=== PATIENT | female | born 1970 | race Caucasian/White ===

== ENCOUNTER 2016-08-06 12:25 | Observation (INO) ==
[2016-08-06] MEDS ORDERED: Aspirin 81 MG TAB.CHEW PO ONE (12:33)
--- NOTE | 2016-08-06 12:51 | Emergency Department Note ---
Disposition Clinical Impression: Chest pain Qualifiers: Chest pain type: unspecified Qualified Code(s): R07.9 - Chest pain, unspecified Disposition: Admitted As Inpatient Condition: Good Referrals: NO,PCP [Non-Partnered Physician] - Forms: ED Satisfaction Letter Time of Disposition: 14:13 Chest Pain HPI - General Chief Complaint: ED Chest Pain Stated Complaint: C/P Time Seen by Provider: 08/06/16 12:33 Source: patient Mode of arrival: ambulatory Limitations: language barrier Vital Signs Reviewed: Yes Nursing Notes Reviewed: Yes - History of Present Illness HPI Narrative: 46-year-old who comes in complaining of chest pain she describes as heaviness in her chest. Patient has multiple risk factors including hypertension, hyperlipidemia, diabetes, cigarette smoking, family history. Pt complaint: chest pain Onset (ago): hour(s) Duration: constant Onset: during rest Pain Location: substernal, left chest Severity scale (1-10): 7 Quality: tightness, aching, heaviness Pain Radiation: none Improves with: nothing Worsens with: nothing Associated symptoms: Denies: palpitations, fever, cough - Related Data Home Medications Medication Instructions Recorded Confirmed Amitriptyline HCl 75 mg PO DAILY 05/11/15 10/13/15 Escitalopram [Lexapro] 20 mg PO DAILY 05/11/15 10/13/15 Eszopiclone [Lunesta] 2 mg PO HS 05/11/15 10/13/15 Gabapentin [Neurontin] 800 mg PO QID 05/11/15 10/13/15 Losartan/HCTZ [Hyzaar 50-12.5 2 each PO DAILY 05/11/15 10/13/15 Tablet] Lovastatin [Mevacor] 20 mg PO HS 05/11/15 10/13/15 Morphine Sulfate ER (24 HR) 15 mg PO BID 05/11/15 10/13/15 [Morphine Sulfate ER Caps] OxyCODONE/APAP 5/325 [Percocet 1 tab PO BID 05/11/15 10/13/15 5/325 MG] Tizanidine HCl [Zanaflex] 18 mg PO HS 05/11/15 10/13/15 amLODIPine [Norvasc] 10 mg PO DAILY 05/11/15 10/13/15 Previous Rx's Medication Instructions Recorded Aspirin 81 mg PO DAILY #30 tab.chew 05/13/15 Nicotine Patch [Nicoderm] 21 mg TD DAILY #42 patch.td24 05/13/15 Nitroglycerin 0.4 mg SL Q5MIN PRN #90 tab.subl 05/13/15 Promethazine [Phenergan] 25 mg PO Q6HR #10 tablet 09/13/15 Diclofenac Sodium [Voltaren] 50 mg PO Q8HR PRN #30 tablet. 10/30/15 predniSONE [Prednisone] 40 mg PO DAILY #10 tablet 10/30/15 Cyclobenzaprine [Flexeril] 10 mg PO BID #6 tablet 01/27/16 Naproxen [EC-Naprosyn] 500 mg PO BID #10 tablet. 01/27/16 Allergies Allergy/AdvReac Type Severity Reaction Status Date / Time Iodinated Contrast- Oral and Allergy Hives Verified 01/27/16 09:46 IV Dye All systems ED: reviewed and negative except as stated. Constitutional: Denies: fever, chills, weakness, weight change Eyes: Denies: eye pain, eye discharge, vision change ENT ED: Denies: ear pain, throat pain, dental pain, hearing loss, epistaxis, congestion, dysphagia Cardiovascular: Reports: chest pain. Denies: palpitations, dyspnea on exertion , edema, syncope Respiratory: Denies: cough, dyspnea, wheezes, hemoptysis, stridor Gastrointestinal: Denies: abdominal pain, nausea, vomiting, diarrhea, constipation, hematemesis, melena, hematochezia Genitourinary: Denies: dysuria, frequency, hematuria, discharge Musculoskeletal: Denies: back pain, neck pain, arthralgia, myalgia Integumentary: Denies: rash, abrasion, lesions Neurological: Denies: headache, weakness, numbness, paresthesias, confusion, abnormal gait, vertigo Psychiatric: Denies: anxiety, depression, suicidal thoughts, homicidal thoughts , auditory hallucinations, visual hallucinations Endocrine: Denies: fatigue Hematological/Lymphatic: Denies: easy bleeding, easy bruising Allergic/Immunologic: Denies: facial swelling, urticaria Chest Pain PMH - Past Medical History Medical history: Reports: arthritis, hyperlipidemia, hypertension Surgical history: Reports: cholecystectomy, hysterectomy, knee replacement ( Right December 2014) Psychiatric history: Reports: anxiety, depression [employer] history: Reports: no [employer] history - Social History Smoking Status: Former smoker Alcohol use: Reports: none Drug use: Reports: none Physical Exam - General Limitations: language barrier General appearance: alert - Head Head exam: atraumatic, normocephalic, normal inspection - Eye Eye exam: Present: normal appearance, PERRL, EOMI - ENT ENT exam: normal exam, normal oropharynx, mucous membranes moist - Neck Neck exam: Present: normal inspection, full ROM, trachea midline - Chest Chest inspection: Present: normal inspection, symmetric chest wall rise - Respiratory Respiratory exam: Present: normal lung sounds bilaterally - Cardiovascular Cardiovascular exam: Present: regular rate, normal rhythm, normal heart sounds - Abdominal Exam Abdominal exam: Present: soft, Non-Tender. Absent: tenderness, distention, guarding, rebound, rigidity - Extremities Exam Extremities exam: Present: normal inspection, full ROM. Absent: tenderness, pedal edema - Expanded Lower Extremity Exam Neurovascular/Tendon exam: Absent: motor deficit, sensory deficit, tendon deficit Gait: observed and normal - Back Exam Back exam: Present: normal inspection, full ROM. Absent: tenderness - Neurological Exam Neurological exam: Present: alert, oriented X3 - Psychiatric Psychiatric exam: Present: normal affect, normal mood - Skin Skin exam: Present: warm, dry, intact, normal color Course - Reevaluation(s) Reevaluation #1: 46-year-old female with multiple risk factors who comes in with chest pain that is consistent with cardiac origin chest pain. Workup is negative patient will be admitted. Time: 14:14 - Consultations Consultation #1: Discussed with Dr. Ridley, admit. Time: 14:14 Vital Signs Temperature 97.7 F 08/06/16 12:27 Pulse Rate 96 08/06/16 12:27 Respiratory Rate 16 08/06/16 12:27 Blood Pressure 133/83 08/06/16 12:27 O2 Sat by Pulse Oximetry 100 08/06/16 12:27 Temperature 97.7 F 08/06/16 12:27 Pulse Rate 103 08/06/16 13:01 Respiratory Rate 17 08/06/16 13:01 Blood Pressure 140/85 08/06/16 13:01 O2 Sat by Pulse Oximetry 100 08/06/16 13:01 Oxygen Delivery Oxygen Delivery Room Air Chest Pain - Lab Data Lab results reviewed: Yes I reviewed the patient's lab results. Result diagrams: 08/06/16 12:51 08/06/16 12:51 Lab Results 08/06/16 08/06/16 08/06/16 Range/Units 12:51 12:51 12:51 WBC 9.0 (4.3-11.1) K/mcL RBC 5.04 H (3.82-4.97) M/mcL Hgb 15.5 H (11.5-15.4) g/dL Hct 44.7 (35.3-44.9) % MCV 88.7 (83.0-100.0) fL MCH 30.8 (28.0-33.3) pg MCHC 34.7 (31.6-35.5) g/dL RDW 12.7 (11.5-14.5) % Plt Count 283 (140-400) K/mcL MPV 10.9 (9.4-12.4) fL Immature Gran % 0.2 (0-4) % Seg Neutrophils % 68.1 % Lymphocytes % 27.3 % Monocytes % 3.2 % Eosinophils % 0.8 % Basophils % 0.4 % Neutrophils # 6.1 (1.6-8.9) K/mcL Lymphocytes # 2.5 (0.6-4.6) K/mcL Monocytes # 0.3 (0.0-1.3) K/mcL Eosinophils # 0.1 (0.0-0.6) K/mcL Basophils # 0.0 (0.0-0.2) K/mcL Platelet Estimate Normal (Normal) Large Platelets Present A (Not Present) PT 12.8 H (9.4-12.1) Seconds INR 1.2 APTT 34.7 (26.0-36.0) Seconds Sodium 138 (136-145) mEq/L Potassium 3.7 (3.5-4.5) mEq/L Chloride 106 (98-109) mEq/L Carbon Dioxide 22 (19-29) mEq/L BUN 15 (7-20) mg/dL Creatinine 0.86 (0.57-1.11) mg/dL Est GFR ( Amer) > 60 (> 60) Est GFR (Non-Af Amer) > 60 (> 60) BUN/Creatinine Ratio 17 (6-26) Glucose 137 H (70-99) mg/dL Calculated Osmolality 289 (280-300) Calcium 9.8 (8.6-10.8) mg/dL Troponin I (0-0.03) ng/mL 08/06/16 Range/Units 12:51 WBC (4.3-11.1) K/mcL RBC (3.82-4.97) M/mcL Hgb (11.5-15.4) g/dL Hct (35.3-44.9) % MCV (83.0-100.0) fL MCH (28.0-33.3) pg MCHC (31.6-35.5) g/dL RDW (11.5-14.5) % Plt Count (140-400) K/mcL MPV (9.4-12.4) fL Immature Gran % (0-4) % Seg Neutrophils % % Lymphocytes % % Monocytes % % Eosinophils % % Basophils % % Neutrophils # (1.6-8.9) K/mcL Lymphocytes # (0.6-4.6) K/mcL Monocytes # (0.0-1.3) K/mcL Eosinophils # (0.0-0.6) K/mcL Basophils # (0.0-0.2) K/mcL Platelet Estimate (Normal) Large Platelets (Not Present) PT (9.4-12.1) Seconds INR APTT (26.0-36.0) Seconds Sodium (136-145) mEq/L Potassium (3.5-4.5) mEq/L Chloride (98-109) mEq/L Carbon Dioxide (19-29) mEq/L BUN (7-20) mg/dL Creatinine (0.57-1.11) mg/dL Est GFR ( Amer) (> 60) Est GFR (Non-Af Amer) (> 60) BUN/Creatinine Ratio (6-26) Glucose (70-99) mg/dL Calculated Osmolality (280-300) Calcium (8.6-10.8) mg/dL Troponin I 0.00 (0-0.03) ng/mL - Radiology Data Radiology results reviewed: Yes I reviewed the patient's radiology results. Chest X-Ray 08/06/16 12:33 IMPRESSION: No active cardiopulmonary disease D/ / López Downing MD / López Downing MD Interpreting Provider: López Downing MD Heart Score - Score History: Moderately Suspicious EKG: Non Specific repolarisation Disturbance Age: 45-65 Risk Factors: Equal/Greater than 3 risk factor or history of atherosclerotic disease Troponin: Less than normal limit HEART Score Total: 5
[2016-08-06 12:59] LABS: Basophils % 0.4 %; Eosinophils # 0.1 K/mcL (0.0-0.6); Eosinophils % 0.8 %; Hematocrit 44.7 % (35.3-44.9); Hemoglobin 15.5 g/dL (11.5-15.4); Immature Granulocytes % 0.2 % (0-4); Lymphocytes # 2.5 K/mcL (0.6-4.6); Lymphocytes % 27.3 %; Mean Corpuscular HGB Conc 34.7 g/dL (31.6-35.5); Mean Corpuscular Hemoglobin 30.8 pg (28.0-33.3); Mean Corpuscular Volume 88.7 fL (83.0-100.0); Mean Platelet Volume 10.9 fL (9.4-12.4); Monocytes # 0.3 K/mcL (0.0-1.3); Monocytes % 3.2 %; Neutrophils # 6.1 K/mcL (1.6-8.9); Platelet Count 283 K/mcL (140-400); Red Blood Count 5.04 M/mcL (3.82-4.97); Red Cell Distribution Width 12.7 % (11.5-14.5); Segmented Neutrophils % 68.1 %
[2016-08-06 13:02] LABS: INR 1.2; Prothrombin Time 12.8 Seconds (9.4-12.1)
[2016-08-06 13:05] LABS: Activated Partial Thrombo Time 34.7 Seconds (26.0-36.0)
[2016-08-06 13:09] LABS: BUN/Creatinine Ratio 17 (6-26); Blood Urea Nitrogen 15 mg/dL (7-20); Calcium 9.8 mg/dL (8.6-10.8); Carbon Dioxide 22 mEq/L (19-29); Chloride 106 mEq/L (98-109); Glucose 137 mg/dL (70-99); Osmolality,Calculated 289 (280-300); Potassium 3.7 mEq/L (3.5-4.5); Sodium 138 mEq/L (136-145); eGFR For African Americans > 60 (> 60); eGFR For Non-African Americans > 60 (> 60)
[2016-08-06 13:29] LABS: Large Platelets Present (Not Present); Platelet Estimate Normal (Normal)
--- NOTE | 2016-08-06 16:19 | Internal Med History&Physical ---
Date of Encounter: 08/06/16 Time of Encounter: 16:17 Assessment and Plan (1) Chest pain Current visit: Yes Status: Acute Substernal chest pain with radiation to the left shoulder in the setting of a patient with multiple risk factors for Coronary artery disease. Admit for observation. Telemetry monitoring. Follow trend of cardiac biomarkers. Lipid panel. Aspirin. Nothing by mouth after midnight, stress test in a.m. Resume home medications. D/W patient. Qualifiers: Chest pain type: unspecified Qualified Code(s): R07.9 - Chest pain, unspecified (2) DVT prophylaxis Current visit: No Status: Acute Hepatin subcutaneously. (3) Tobacco abuse Current visit: No Status: Chronic Patient was counseled in regards to smoking cessation. (4) Anxiety and depression Current visit: Yes Status: Acute Resume home meds. Internal Medicine - H&P: HPI Chief complaint: chest pain Admitted From: Emergency Dept Plans for Post Hospital Care: Home History of present illness: Ms. Solis is a 46 year old female with past medical history of chronic active smoker, anxiety, depression, hypertension, hyperlipidemia. She presented to our emergency department complaining of substernal chest pain, pressure-like, with radiation to the left shoulder which is started today at around 7 AM and was associated with shortness of breath. Patient denies fever, cough, syncope, rash, headache, dysuria, diarrhea, constipation. She presented to the emergency department and her initial troponin was negative, her EKG was essentially unremarkable. Chest x-ray was not showing any signs of acute abnormalities. In light of her extensive risk factors and her complaint of chest pain and she was admitted for further management and workup. Of note, she underwent extensive cardiac workup in April of last year, including stress test, echocardiogram and left heart catheterizations. Past Med Surg Social Fam HX - Past Medical History Medical history: arthritis, hyperlipidemia, hypertension Psychiatric history: anxiety, depression - Past Surgical History Surgical History: cholecystectomy, hysterectomy, knee replacement (Right December 2014) - Social History Smoking Status: Current every day smoker Smokeless Tobacco Status: No Alcohol use: none Drug use: none - Family History Mother Adopted: No Living Status: Still Living Hx Family Cardiac Disorders: Yes (Hypertension) Hx Family Respiratory Disorders: No Hx Family Cancer: No Hx Family GI Disorders: No Hx Family Endocrine Disorder: No Hx Family Neuromuscular Disorders: No Hx Family Neurologic Disorders: Yes (Seizure disorder) Hx Family HEENT Disorders: No Hx Family Autoimmune Disorders: No Internal Medicine - H&P: Meds Escitalopram [Lexapro] 20 mg PO DAILY 05/11/15 [History] Eszopiclone [Lunesta] 2 mg PO HS 05/11/15 [History] Gabapentin [Neurontin] 800 mg PO QID 05/11/15 [History] Losartan/HCTZ [Hyzaar 50-12.5 Tablet] 1 each PO BID 05/11/15 [History] Tizanidine HCl [Zanaflex] 6 mg PO HS 05/11/15 [History] amLODIPine [Norvasc] 10 mg PO DAILY 05/11/15 [History] Buspirone HCl [Buspar] 7.5 mg PO BID 08/06/16 [History] HYDROcodone/Acet 7.5/325 mg [[place] 7.5-325 mg] 1 tab PO Q6H PRN 08/06/16 [ History] Topiramate [Topamax] 50 mg PO BID 08/06/16 [History] Allergies Iodinated Contrast- Oral and IV Dye Allergy (Verified 01/27/16 09:46) Hives All Systems PM: A 10-system review of systems was performed and is negative for pertinent findings except as documented above in the HPI. - Constitutional Constitutional: as per HPI, no chills, no fever(s), no night sweats - EENT Eyes: as per HPI, no change in vision, no discharge, no pain, no photophobia Ears: as per HPI, no ear discharge, no ear pain, no tinnitus Nose, mouth and throat: as per HPI, no dysphagia, no nasal discharge, no neck pain, no sore throat - Breasts Breasts: as per HPI - Cardiovascular Cardiovascular ROS IM: chest pain, dyspnea, dyspnea on exertion, no diaphoresis , no lightheadedness, no palpitations, no syncope - Respiratory Respiratory: as per HPI, dyspnea, dyspnea on exertion, no cough, no wheezing, no excessive phlegm production - Gastrointestinal Gastrointestinal: as per HPI, no abdominal pain, no diarrhea, no hematemesis, no hematochezia, no melena, no nausea, no vomiting - Genitourinary Genitourinary: as per HPI, no change in urinary stream, no dysuria, no flank pain, no hematuria - Musculoskeletal Musculoskeletal ROS IM: as per HPI, no numbness, no tingling - Integumentary Integumentary IM: as per HPI, no rash, no unusual bruising - Neurological Neurological ROS: as per HPI, no confusion, no convulsions, no focal weakness, no numbness, no tingling, no tremor(s) - Psychiatric Psychiatric: as per HPI - Endocrine Endocrine IM: as per HPI - Hematologic/Lymphatic Hematologic/Lymphatic: as per HPI, no easy bruising - Allergic/Immunologic Allergic/Immunologic: as per HPI - Constitutional Vitals: Temp Pulse Resp BP Pulse Ox 98.6 F 70 16 124/88 96 08/06/16 15:24 08/06/16 15:24 08/06/16 15:24 08/06/16 15:24 08/06/16 15:24 General appearance: Present: cooperative, A&O X 3, pleasant, no acute distress - Head Head exam: Present: atraumatic, normocephalic - Eye Eye exam: Present: PERRL, conjuntiva pink, sclera anicteric Pupils: Present: PERRL - Neck Neck exam general surgery: Present: supple, trachea midline. Absent: lymphadenopathy - Respiratory Respiratory exam: Present: CTAB. Absent: accessory muscle use, rales, rhonchi, wheezes - Cardiovascular Cardiovascular exam: Present: RRR, +S1, +S2. Absent: diastolic murmur, gallop, rubs, systolic murmur - GI/Abdominal GI/Abdominal exam: Present: normal bowel sounds, soft, no peritoneal signs. Absent: distended, tenderness - Extremities Exam Extremities exam: Present: warm, radial pulses palpable and symetrical. Absent : calf tenderness, cyanotic, pedal edema - Neurological Exam Neurological exam: Present: CN II-XII intact, oriented X3, no focal deficits. Absent: pronater drift, facial droop, speech deficit - Skin Skin exam: Present: dry, intact Internal Med - H&P Results - Labs CBC & Chem 7: 08/06/16 12:51 08/06/16 12:51
[2016-08-06] MEDS ORDERED: *HR* HYDROcodone/Acet 7.5/325 mg TABLET PO PRN (16:26)
[2016-08-06] MEDS ORDERED: Nitroglycerin 0.4 MG TAB.SUBL SL PRN (16:28)
[2016-08-06] MEDS ORDERED: Ondansetron ODT 4 MG TAB.RAPDIS SL PRN (16:30)
[2016-08-06] MEDS ORDERED: Naloxone 0.4 MG/ML INJ IVP PRN (16:30)
[2016-08-06 17:29] LABS: Amphetamine Screen,Urine Negative ng/mL (Cutoff=1000); Barbiturate Screen,Urine Negative ng/mL (Cutoff=200); Benzodiazepines Screen,Urine Negative ng/mL (Cutoff=200); Cannabinoid Screen,Urine Negative ng/mL (Cutoff = 50); Cocaine Screen,Urine Negative ng/mL (Cutoff= 300); Opiate Screen,Urine Negative ng/mL (Cutoff=300); Phencyclidine Screen,Urine Negative ng/mL (Cutoff=25)
[2016-08-06] MEDS: *HR* Morphine 2 MG/ML SYRINGE IVP PRN ×2 (17:58→21:52)
[2016-08-06] MEDS: Gabapentin 400 MG CAPSULE PO SCH (21:51)
[2016-08-06] MEDS: Topiramate 25 MG TABLET PO SCH (21:51)
[2016-08-06] MEDS: *HR* Heparin 5,000 UNIT/ML VIAL SQ SCH (21:52)
[2016-08-07] MEDS: *HR* Morphine 2 MG/ML SYRINGE IVP PRN ×3 (02:08→12:16)
[2016-08-07 03:06] LABS: Basophils % 0.4 %; Eosinophils # 0.3 K/mcL (0.0-0.6); Eosinophils % 3.5 %; Hemoglobin 14.5 g/dL (11.5-15.4); Immature Granulocytes % 0.2 % (0-4); Immature Platelets 8.2 % (1.1-6.1); Lymphocytes # 4.4 K/mcL (0.6-4.6); Lymphocytes % 53.5 %; Mean Corpuscular HGB Conc 33.7 g/dL (31.6-35.5); Mean Corpuscular Hemoglobin 30.9 pg (28.0-33.3); Mean Corpuscular Volume 91.5 fL (83.0-100.0); Mean Platelet Volume 10.9 fL (9.4-12.4); Monocytes # 0.4 K/mcL (0.0-1.3); Monocytes % 5.2 %; Neutrophils # 3.1 K/mcL (1.6-8.9); Platelet Count 262 K/mcL (140-400); Red Cell Distribution Width 12.8 % (11.5-14.5); Segmented Neutrophils % 37.2 %
[2016-08-07 03:10] LABS: Prothrombin Time 10.5 Seconds (9.4-12.1)
[2016-08-07 03:17] LABS: Hemoglobin A1C 5.7 %; Magnesium 2.2 mg/dL (1.6-2.6)
[2016-08-07 03:23] LABS: Alanine Aminotransferase 14 Units/L (0-55); Albumin 3.7 g/dL (3.5-5.0); Albumin/Globulin Ratio 1.1 (1.1-2.2); Alkaline Phosphatase 88 Units/L (38-126); Aspartate Amino Transferase 13 Units/L (5-34); BUN/Creatinine Ratio 18 (6-26); Bilirubin,Total 0.3 mg/dL (0.2-1.2); Blood Urea Nitrogen 14 mg/dL (7-20); Calcium 9.2 mg/dL (8.6-10.8); Carbon Dioxide 28 mEq/L (19-29); Chloride 105 mEq/L (98-109); Chol/HDL Ratio 7.7 (0-4.9); Cholesterol 238 mg/dL (< 200); Globulin 3.5 g/dL (2.4-3.5); Glucose 107 mg/dL (70-99); HDL Cholesterol 31 mg/dL (40-59); LDL Cholesterol,Calculated 162 mg/dL (0-99); Osmolality,Calculated 293 (280-300); Potassium 3.9 mEq/L (3.5-4.5); Sodium 141 mEq/L (136-145); Total Protein 7.2 g/dL (6.0-8.3); Triglycerides 224 mg/dL (< 150); eGFR For African Americans > 60 (> 60); eGFR For Non-African Americans > 60 (> 60)
[2016-08-07 03:43] LABS: Thyroid Stimulating Hormone 3.408 mcIU/mL (0.350-4.840)
[2016-08-07] MEDS: *HR* Heparin 5,000 UNIT/ML VIAL SQ SCH (06:26)
[2016-08-07] MEDS ORDERED: Regadenoson 0.4 MG/5 ML SYRINGE IVP ONE (08:11)
[2016-08-07] MEDS ORDERED: Losartan/HCTZ 50-12.5 TABLET PO SCH (09:00)
[2016-08-07] MEDS ORDERED: Aspirin 81 MG TAB.CHEW PO SCH (09:00)
[2016-08-07] MEDS ORDERED: amLODIPine 5 MG TABLET PO SCH (09:00)
[2016-08-07 11:43] VITALS: BP 123/83
[2016-08-07] MEDS: Gabapentin 400 MG CAPSULE PO SCH (12:14)
[2016-08-07] MEDS: Topiramate 25 MG TABLET PO SCH (12:15)
--- NOTE | 2016-08-07 13:27 | Nuclear Medicine Stress Report ---
Regadenoson Nuclear Stress Name: Jodie Solis Date of Study: 08/07/2016 Date: 1970 Ht: 69.0 in Medical Record#: [id number] Age: 46 Wt: 235.0 lb Gender: Female Order #: [id number] Location: [facility] Room: [facility] Supervising Provider: Navya Sebastian CNP Reading Physician: Tod Sim MD, [facility] Ordering Physician: Ana Juarez CNP Primary Care Physician: Carmella Blackwood DO Stress Technologist: Yamilet Kebede, BINDERY OPERATOR, CCT, CPFT Calender Let Off Helper: Phu Lee Indications: Chest Pain Impression: No significant ECG changes with regadenoson. Gated LVEF > 70%. Perfusion imaging was negative for ischemia or infarct. History: Hypertension Hypercholesteremia History of Smoking Stress Test Summary: Stress Test Type: Pharmacologic Regadenoson 0.4mg/5ml given IV Baseline Information: Initial Heart Rate: 63 Blood Pressure: 114/82 Stress Information: Test Terminated Due to (primary): As per protocol Maximum Blood Pressure: 118/76 Maximum Heart Rate: 97 Percent Maximum Heart Rate Achieved: 55 Double Product: [id number] Symptoms: Nausea Nuclear Summary: SPECT myocardial perfusion imaging using [id number] Sestamibi given intravenously was performed at rest and following cardiac stress testing. The resting images were obtained following initial dose of 11.7 mCi. Following stress an additional dose of 32.8 mCi was given at peak exercise or 30 seconds post regadenoson infusion. Findings: Stress Note * Resting ECG demonstrated normal sinus rhythm. * No baseline arrhythmias were noted. * Patient had no chest pain during stress. * No arrhythmias were noted during stress. * No significant ECG changes with regadenoson. Hemodynamic responses * Normal hemodynamic responses to pharmacologic stress. Study Quality * Study quality is good. Gated EF > 70% * Gated LVEF > 70%. Left Ventricle * The left ventricle is not dilated. * Normal Segmental Perfusion in rest. * Normal segmental perfusion in stress. TID * No evidence of transient ischemic dilatation. Updated by Tod Sim MD, [facility] on 08/07/2016 1:21:11 PM electronically signed on 08/07/2016 1:22:12 PM with status of Final
--- NOTE | 2016-08-07 13:52 | Discharge Summary ---
Date of Encounter: 08/07/16 Time of Encounter: 13:50 - Discharge Diagnosis (1) Chest pain Priority: Primary Status: Acute Qualifiers: Chest pain type: unspecified Qualified Code(s): R07.9 - Chest pain, unspecified (2) DVT prophylaxis Priority: Secondary Status: Acute (3) Tobacco abuse Priority: Secondary Status: Chronic (4) Anxiety and depression Priority: Secondary Status: Acute - Discharge Medications Home Medications: Escitalopram [Lexapro] 20 mg PO DAILY 05/11/15 [History] Eszopiclone [Lunesta] 2 mg PO HS 05/11/15 [History] Gabapentin [Neurontin] 800 mg PO QID 05/11/15 [History] Losartan/HCTZ [Hyzaar 50-12.5 Tablet] 1 each PO BID 05/11/15 [History] Tizanidine HCl [Zanaflex] 6 mg PO HS 05/11/15 [History] amLODIPine [Norvasc] 10 mg PO DAILY 05/11/15 [History] Buspirone HCl [Buspar] 7.5 mg PO BID 08/06/16 [History] HYDROcodone/Acet 7.5/325 mg [[place] 7.5-325 mg] 1 tab PO Q6H PRN 08/06/16 [ History] Topiramate [Topamax] 50 mg PO BID 08/06/16 [History] Allergies/Adverse Reactions: Allergies Iodinated Contrast- Oral and IV Dye Allergy (Verified 01/27/16 09:46) Hives Procedures/tests Complete & Pending: Procedures Performed prior 72 hours Category Date Time Status NM amandeep perf SPECT multi [NM] Routine Exams 08/06/16 16:43 Taken SP pharm nuclear stress Routine Y 08/06/16 16:42 Completed Date of admission: 08/06/16 14:45 Primary care physician: Caremlla Blackwood DO Consults: 08/06/16 16:28 Consult to Nurse Navigator [CONS] Routine Comment: Discharging clinician: Khari Mejía Anticipated date of discharge: 08/07/16 - Patient Status Disposition: Home, Self-Care Condition: Good Functional capacity at discharge: independent ambulation Overall status at discharge: patient is back to baseline - Discharge Instructions Follow Up With: Carmella Blackwood DO [Primary Care Provider] - - Diet and Activity Activity: increase activity as tolerated Diet: advance to your usual diet Interval History: As per HPI on admission: Ms. Solis is a 46 year old female with past medical history of chronic active smoker, anxiety, depression, hypertension, hyperlipidemia. She presented to our emergency department complaining of substernal chest pain, pressure-like, with radiation to the left shoulder which is started today at around 7 AM and was associated with shortness of breath. Patient denies fever, cough, syncope, rash, headache, dysuria, diarrhea, constipation. She presented to the emergency department and her initial troponin was negative, her EKG was essentially unremarkable. Chest x-ray was not showing any signs of acute abnormalities. In light of her extensive risk factors and her complaint of chest pain and she was admitted for further management and workup. Of note, she underwent extensive cardiac workup in April of last year, including stress test, echocardiogram and left heart catheterizations. Hospital course: Ms. Solis is a 46 year old female admitted due to chest pain, negative cardiac biomarkers. She underwent a stress test which was negative for ischemia. The patient will be discharged home today, she will follow up as outpatient with her primary care physician. - Time Spent with Patient Total time spent providing and/or coordinating discharge services: - Constitutional Vitals: Temp Pulse Resp BP Pulse Ox 97.9 F 64 16 123/83 99 08/07/16 11:41 08/07/16 11:41 08/07/16 11:41 08/07/16 11:41 08/07/16 11:41 General appearance: Present: cooperative, A&O X 3, pleasant, no acute distress - Head Head exam: Present: atraumatic, normocephalic - Eye Eye exam: Present: PERRL, conjuntiva pink, sclera anicteric Pupils: Present: PERRL - Neck Neck exam general surgery: Present: supple, trachea midline. Absent: lymphadenopathy - Respiratory Respiratory exam: Present: CTAB. Absent: accessory muscle use, rales, rhonchi, wheezes - Cardiovascular Cardiovascular exam: Present: RRR, +S1, +S2. Absent: diastolic murmur, gallop, rubs, systolic murmur - GI/Abdominal GI/Abdominal exam: Present: normal bowel sounds, soft, no peritoneal signs. Absent: distended, tenderness - Extremities Exam Extremities exam: Present: warm, radial pulses palpable and symetrical. Absent : calf tenderness, cyanotic, pedal edema - Neurological Exam Neurological exam: Present: CN II-XII intact, oriented X3, no focal deficits. Absent: pronater drift, facial droop, speech deficit - Skin Skin exam: Present: dry, intact
--- NOTE | 2016-08-09 06:56 | Electrocardiograph Report ---
[place] [id number] Test Date: 2016-08-06 Pat Name: Jodie Solis Department: 102 Room: 3B36 Gender: F Transmission Operator: Sarah : 1970 Requested By: Damion Mathews Order Number: [id number] Reading MD: Sabas Stout MD Measurements Intervals [place] Rate: 86 P: 29 CT: 180 QRS: -12 QRSD: 105 T: 12 QT: 354 QTc: 397 Interpretive Statements SINUS RHYTHM LEFT ATRIAL ENLARGEMENT LOW QRS VOLTAGE IN PRECORDIAL LEADS LEFT VENTRICULAR HYPERTROPHY Electronically Signed On 08-09-2016 6:54:32 EDT by Sabas Stout MD
== END 2016-08-07 14:34 | disposition home or self-care (01) ==
LOC: EMEROO 12:25 → 3BNU 12:25
PROVIDERS: ADMIT Internal Medicine; ATTEND Registered Nurse

== ENCOUNTER 2016-11-06 20:58 | Inpatient (IN) ==
[2016-11-06] MEDS ORDERED: 0.9 % Sodium Chloride 1,000 ML IVC ONE (21:56)
[2016-11-06] MEDS ORDERED: *HR* FentaNYL (PF) 100 MCG/2 ML VIAL IVP ONE (21:58)
[2016-11-06] MEDS ORDERED: Ondansetron 4 MG/2 ML VIAL IVP ONE (21:58)
--- NOTE | 2016-11-06 22:08 | Emergency Department Note ---
START Narrative - START START: I have personally performed a face to face evaluation on this patient. I have reviewed and agree with the care plan. History and Exam by me shows: Patient to ED with right leg swelling and redness. Patient ran a piece of metal into her leg 2 days ago. She states it was about 6 inches. She was seen here and started on antibiotic. She states it is worse. On exam the right calf is red swollen and warm. It is soft. Sensation intact in the foot. Good cap refill. Plan. The patient has cellulitis and concerning for a deep space infection. We will start an IV antibiotic and culture and admit.
--- NOTE | 2016-11-06 22:12 | Emergency Department Note ---
Disposition Clinical Impression: Cellulitis, leg Qualifiers: Laterality: right Qualified Code(s): L03.115 - Cellulitis of right lower limb Puncture wound of leg not thigh, right Qualifiers: Encounter type: sequela Qualified Code(s): S81.831S - Puncture wound without foreign body, right lower leg, sequela Disposition: Admitted As Inpatient Condition: Good Time of Disposition: 23:12 Lower Extremity Injury HPI - General Chief Complaint: ED Recheck/Abnormal Lab/Rx Stated Complaint: rt leg injury Time Seen by Provider: 11/06/16 21:03 Source: patient Limitations: no limitations Nursing Notes Reviewed: Yes Vital Signs Reviewed: Yes - History of Present Illness Pt Subjective Complaint: leg injury Injury location: Right Leg Onset (ago): day(s) (2) Mechanism of Injury: puncture wound Context: walking Place: home Pain Scale: 10 Improves with: nothing Worsens with: weight bearing, movement, palpation Associated symptoms: Reports: swelling, other (erythema, pain) Treatments prior to arrival: other (Rx pain meds, abx) - Related Data Home Medications Medication Instructions Recorded Confirmed Escitalopram [Lexapro] 20 mg PO DAILY 05/11/15 08/06/16 Eszopiclone [Lunesta] 2 mg PO HS 05/11/15 08/06/16 Gabapentin [Neurontin] 800 mg PO QID 05/11/15 08/06/16 Losartan/HCTZ [Hyzaar 50-12.5 1 each PO BID 05/11/15 08/06/16 Tablet] Tizanidine HCl [Zanaflex] 6 mg PO HS 05/11/15 08/06/16 amLODIPine [Norvasc] 10 mg PO DAILY 05/11/15 08/06/16 Buspirone HCl [Buspar] 7.5 mg PO BID 08/06/16 08/06/16 HYDROcodone/Acet 7.5/325 mg [[place] 1 tab PO Q6H PRN 08/06/16 08/06/16 7.5-325 mg] Topiramate [Topamax] 50 mg PO BID 08/06/16 08/06/16 Previous Rx's Medication Instructions Recorded Amoxicillin/Clavulanate [Augmentin] 875 mg PO BIDWM #20 tablet 09/02/16 HYDROcodone/Acet 5/325 mg [[place] 1 tab PO Q4H PRN #10 tab 09/02/16 5-325 mg] Clindamycin [Cleocin] 150 mg PO Q6HR #40 capsule 09/03/16 Oxycodone HCl/Acetaminophen 1 each PO Q4H PRN #20 tablet 11/04/16 [Percocet 5-325 mg Tablet] cephALEXin [Keflex] 500 mg PO TID #21 capsule 11/04/16 Allergies Allergy/AdvReac Type Severity Reaction Status Date / Time Iodinated Contrast- Oral and Allergy Hives Verified 11/06/16 21:11 IV Dye All systems ED: reviewed and negative except as stated. Constitutional: Denies: fever, chills Eyes: Denies: eye discharge ENT ED: Denies: throat pain Cardiovascular: Denies: palpitations Respiratory: Denies: dyspnea Gastrointestinal: Denies: abdominal pain, nausea, vomiting Genitourinary: Denies: dysuria Musculoskeletal: Reports: as per HPI. Denies: back pain, neck pain Integumentary: Reports: as per HPI. 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 - Social History Smoking Status: Former smoker Smokeless Tobacco Status: No Alcohol use: Reports: none Drug use: Reports: none Physical Exam GENERAL: alert, well appearing, no acute distress HEAD: atraumatic, normocephalic EYE: EOM intact, no conjunctival injection ENT: mucous membranes moist, voice normal in character, nose normal in appearance, no rhinorrhea NECK: supple, normal ROM without stiffness CHEST: symmetric chest wall rise RESPIRATORY: Present: normal lung sounds bilaterally, no respiratory distress CARDIOVASCULAR: Regular rate ABDOMINAL EXAM: No evidence of abdominal discomfort or peritoneal signs; Absent : guarding, rebound, distention BACK: Absent: CVA tenderness (R), CVA tenderness (L) NEURO: Present: alert, reflexes normal PSYCH: anxious, normal affect; no evidence of disorganized thoughts or confusion SKIN: warm, dry, intact, normal color for age and race; - General Limitations: no limitations General appearance: alert, anxious - Expanded Lower Extremity Exam Hip/Pelvis exam: Present: full ROM Upper leg exam: Present: normal inspection, full ROM Knee exam: Present: normal inspection, full ROM Lower leg exam: Present: tenderness, swelling, laceration (puncture wound, minimal drainage fluid/blood), erythema. Absent: full ROM Ankle exam: Present: normal inspection, full ROM Foot/toe exam: Present: normal inspection, full ROM Course Course Narrative: 46-year-old female smoker presents with worsening right leg injury. She states 2 days ago she was seen in this department after a metal ruba used in concrete pouring accidentally penetrated her right lower leg while she was walking. She had received IV antibiotics, and was also given pain medications and a prescription of by mouth Keflex. She states the pain has been worsening yesterday with no relief of from her Percocet. Worsening pain is also accompanied by increased swelling and erythema. She also describes feeling fevers and chills. Patient seen and examined. The area of the injury is extremely tender, erythematous, slightly swollen, this is consistent with cellulitis. There is some active drainage from her wound. Neurovascular she is intact. She has some decrease cutaneous sensory deficit was inferior to the room, otherwise no sensory loss, no motor deficits. Posterior tibialis and dorsal pedis pulses intact and equal bilaterally. Adjacent skin soft, no induration him a no area of fluctuance. No concerning signs for compartment syndrome at this time. Pt was discussed with Dr. Garcia who also had face time patient. Patient has been on antibiotics for approximately 36 hours with worsening symptoms. Will need admission for IV antibiotics. Initial lab work, wound and blood cultures have been ordered. Fluids analgesics ordered. - Reevaluation(s) Reevaluation #1: Patient was discussed with hospice Dr. Kwon, who accepted the patient and was agreeable to starting vancomycin and Zosyn IV. Time: 23:07 Reevaluation #2: I discussed patient with Dr. Guadalupe, hospitalist, who has taken over care of patient. He has requested CT with contrast of right lower extremity. Patient has allergy to IV dye which results in hives. Patient states that in the past she has been pretreated prior to receiving contrast dye and had no reactions last time this happened. She is agreeable to be pretreated today and agreeable to CT scan. This was discussed with Dr. Guadalupe, who advised for pretreatment protocol with Benadryl and prednisone. Patient will be pretreated with 50 mg prednisone 13 hours, 7 hours, one hour before CT scan, and 50 mg of Benadryl one hour before CT scan. These have been ordered as well as a CT scan, time of CT scan will be 13:00 tomorrow. Time: 23:40 Vital Signs Temperature 98.1 F 11/06/16 21:07 Pulse Rate 92 11/06/16 21:07 Respiratory Rate 18 11/06/16 21:07 Blood Pressure 111/74 11/06/16 21:07 O2 Sat by Pulse Oximetry 99 11/06/16 21:07 Temperature 98.1 F 11/06/16 21:07 Pulse Rate 69 11/06/16 22:50 Respiratory Rate 18 11/06/16 22:50 Blood Pressure 100/72 11/06/16 22:50 O2 Sat by Pulse Oximetry 100 11/06/16 22:50 Oxygen Delivery Oxygen Delivery Room Air Extremity Injury, Lower - MDM Narrative Medical decision making narrative: All Lab Results (24 Hours) 11/06/16 11/06/16 11/06/16 Range/Units 22:18 22:18 22:18 WBC 8.6 (4.3-11.1) K/mcL RBC 4.24 (3.82-4.97) M/mcL Hgb 13.0 (11.5-15.4) g/dL Hct 38.3 (35.3-44.9) % MCV 90.3 (83.0-100.0) fL MCH 30.7 (28.0-33.3) pg MCHC 33.9 (31.6-35.5) g/dL RDW 12.7 (11.5-14.5) % Plt Count 185 (140-400) K/mcL MPV 10.7 (9.4-12.4) fL Immature Gran % 0.2 (0-4) % Seg Neutrophils % 56.5 % Lymphocytes % 32.2 % Monocytes % 8.4 % Eosinophils % 2.4 % Basophils % 0.3 % Neutrophils # 4.9 (1.6-8.9) K/mcL Lymphocytes # 2.8 (0.6-4.6) K/mcL Monocytes # 0.7 (0.0-1.3) K/mcL Eosinophils # 0.2 (0.0-0.6) K/mcL Basophils # 0.0 (0.0-0.2) K/mcL ESR (0-15) mm/hr Sodium 139 (136-145) mEq/L Potassium 3.5 (3.5-4.5) mEq/L Chloride 104 (98-109) mEq/L Carbon Dioxide 26 (19-29) mEq/L BUN 7 (7-20) mg/dL Creatinine 0.74 (0.57-1.11) mg/dL Est GFR ( Amer) > 60 (> 60) Est GFR (Non-Af Amer) > 60 (> 60) BUN/Creatinine Ratio 9 (6-26) Glucose 113 H (70-99) mg/dL Calculated Osmolality 287 (280-300) Lactic Acid 1.0 (0.5-2.2) mmol/L Calcium 9.7 (8.6-10.8) mg/dL C-Reactive Protein 172 H (Less than 5) mg/L 11/06/16 Range/Units 22:18 WBC (4.3-11.1) K/mcL RBC (3.82-4.97) M/mcL Hgb (11.5-15.4) g/dL Hct (35.3-44.9) % MCV (83.0-100.0) fL MCH (28.0-33.3) pg MCHC (31.6-35.5) g/dL RDW (11.5-14.5) % Plt Count (140-400) K/mcL MPV (9.4-12.4) fL Immature Gran % (0-4) % Seg Neutrophils % % Lymphocytes % % Monocytes % % Eosinophils % % Basophils % % Neutrophils # (1.6-8.9) K/mcL Lymphocytes # (0.6-4.6) K/mcL Monocytes # (0.0-1.3) K/mcL Eosinophils # (0.0-0.6) K/mcL Basophils # (0.0-0.2) K/mcL ESR 64 H (0-15) mm/hr Sodium (136-145) mEq/L Potassium (3.5-4.5) mEq/L Chloride (98-109) mEq/L Carbon Dioxide (19-29) mEq/L BUN (7-20) mg/dL Creatinine (0.57-1.11) mg/dL Est GFR ( Amer) (> 60) Est GFR (Non-Af Amer) (> 60) BUN/Creatinine Ratio (6-26) Glucose (70-99) mg/dL Calculated Osmolality (280-300) Lactic Acid (0.5-2.2) mmol/L Calcium (8.6-10.8) mg/dL C-Reactive Protein (Less than 5) mg/L - Medical Records Medical records reviewed: Yes I reviewed the patient's medical records. - Lab Data Lab results reviewed: Yes I reviewed the patient's lab results. Result diagrams: 11/06/16 22:18 11/06/16 22:18 Lab Results 11/06/16 11/06/16 11/06/16 Range/Units 22:18 22:18 22:18 WBC 8.6 (4.3-11.1) K/mcL RBC 4.24 (3.82-4.97) M/mcL Hgb 13.0 (11.5-15.4) g/dL Hct 38.3 (35.3-44.9) % MCV 90.3 (83.0-100.0) fL MCH 30.7 (28.0-33.3) pg MCHC 33.9 (31.6-35.5) g/dL RDW 12.7 (11.5-14.5) % Plt Count 185 (140-400) K/mcL MPV 10.7 (9.4-12.4) fL Immature Gran % 0.2 (0-4) % Seg Neutrophils % 56.5 % Lymphocytes % 32.2 % Monocytes % 8.4 % Eosinophils % 2.4 % Basophils % 0.3 % Neutrophils # 4.9 (1.6-8.9) K/mcL Lymphocytes # 2.8 (0.6-4.6) K/mcL Monocytes # 0.7 (0.0-1.3) K/mcL Eosinophils # 0.2 (0.0-0.6) K/mcL Basophils # 0.0 (0.0-0.2) K/mcL ESR (0-15) mm/hr Sodium 139 (136-145) mEq/L Potassium 3.5 (3.5-4.5) mEq/L Chloride 104 (98-109) mEq/L Carbon Dioxide 26 (19-29) mEq/L BUN 7 (7-20) mg/dL Creatinine 0.74 (0.57-1.11) mg/dL Est GFR ( Amer) > 60 (> 60) Est GFR (Non-Af Amer) > 60 (> 60) BUN/Creatinine Ratio 9 (6-26) Glucose 113 H (70-99) mg/dL Calculated Osmolality 287 (280-300) Lactic Acid 1.0 (0.5-2.2) mmol/L Calcium 9.7 (8.6-10.8) mg/dL C-Reactive Protein 172 H (Less than 5) mg/L 11/06/16 Range/Units 22:18 WBC (4.3-11.1) K/mcL RBC (3.82-4.97) M/mcL Hgb (11.5-15.4) g/dL Hct (35.3-44.9) % MCV (83.0-100.0) fL MCH (28.0-33.3) pg MCHC (31.6-35.5) g/dL RDW (11.5-14.5) % Plt Count (140-400) K/mcL MPV (9.4-12.4) fL Immature Gran % (0-4) % Seg Neutrophils % % Lymphocytes % % Monocytes % % Eosinophils % % Basophils % % Neutrophils # (1.6-8.9) K/mcL Lymphocytes # (0.6-4.6) K/mcL Monocytes # (0.0-1.3) K/mcL Eosinophils # (0.0-0.6) K/mcL Basophils # (0.0-0.2) K/mcL ESR 64 H (0-15) mm/hr Sodium (136-145) mEq/L Potassium (3.5-4.5) mEq/L Chloride (98-109) mEq/L Carbon Dioxide (19-29) mEq/L BUN (7-20) mg/dL Creatinine (0.57-1.11) mg/dL Est GFR ( Amer) (> 60) Est GFR (Non-Af Amer) (> 60) BUN/Creatinine Ratio (6-26) Glucose (70-99) mg/dL Calculated Osmolality (280-300) Lactic Acid (0.5-2.2) mmol/L Calcium (8.6-10.8) mg/dL C-Reactive Protein (Less than 5) mg/L
[2016-11-06 22:29] LABS: Basophils % 0.3 %; Eosinophils # 0.2 K/mcL (0.0-0.6); Eosinophils % 2.4 %; Hematocrit 38.3 % (35.3-44.9); Immature Granulocytes % 0.2 % (0-4); Lymphocytes # 2.8 K/mcL (0.6-4.6); Lymphocytes % 32.2 %; Mean Corpuscular HGB Conc 33.9 g/dL (31.6-35.5); Mean Corpuscular Hemoglobin 30.7 pg (28.0-33.3); Mean Corpuscular Volume 90.3 fL (83.0-100.0); Mean Platelet Volume 10.7 fL (9.4-12.4); Monocytes # 0.7 K/mcL (0.0-1.3); Monocytes % 8.4 %; Neutrophils # 4.9 K/mcL (1.6-8.9); Platelet Count 185 K/mcL (140-400); Red Blood Count 4.24 M/mcL (3.82-4.97); Red Cell Distribution Width 12.7 % (11.5-14.5); Segmented Neutrophils % 56.5 %
[2016-11-06] MEDS ORDERED: *HR* LORazepam 2 MG/ML VIAL IVP ONE (22:37)
[2016-11-06 22:49] LABS: BUN/Creatinine Ratio 9 (6-26); Blood Urea Nitrogen 7 mg/dL (7-20); Calcium 9.7 mg/dL (8.6-10.8); Carbon Dioxide 26 mEq/L (19-29); Chloride 104 mEq/L (98-109); Glucose 113 mg/dL (70-99); Osmolality,Calculated 287 (280-300); Potassium 3.5 mEq/L (3.5-4.5); Sodium 139 mEq/L (136-145); eGFR For African Americans > 60 (> 60); eGFR For Non-African Americans > 60 (> 60)
[2016-11-06 22:51] LABS: C-Reactive Protein 172 mg/L (Less than 5)
[2016-11-06] MEDS ORDERED: Piperacillin/Tazobactam 3.375 GM in D5% in Water (Mini-Bag+) 100 ML IVPB ONE (23:07)
[2016-11-06] MEDS ORDERED: Vancomycin 1,000 MG in D5% in Water 250 ML IVPB ONE (23:08)
[2016-11-06] MEDS ORDERED: *HR* OxyCODONE/APAP 5/325 TABLET PO PRN (23:09)
[2016-11-06] MEDS ORDERED: Naloxone 0.4 MG/ML INJ IVP PRN (23:23)
[2016-11-06] MEDS ORDERED: *HR* Morphine 2 MG/ML SYRINGE IVP PRN (23:23)
[2016-11-06] MEDS ORDERED: predniSONE 20 MG TABLET PO ONE (23:34)
--- NOTE | 2016-11-06 23:38 | Internal Med History&Physical ---
Date of Encounter: 11/06/16 Time of Encounter: 23:34 Assessment and Plan (1) Sepsis Current visit: Yes Status: Acute blood cx, empiric antibiotics zosyn, vanco, IVF Qualifiers: Sepsis type: sepsis due to unspecified organism Qualified Code(s): A41.9 - Sepsis, unspecified organism (2) Infected wound Current visit: Yes Status: Acute source of sepsis, unable to get CT w contrast due to hives with IV dye. D/w ED to start desensitization protocol (pred 50mg at 13,7,1 hour and benadryl 50mg 1 hour prior to contrast) with planned interval CT exam. Will order plain film for now. IV morphine for pain control Internal Medicine - H&P: HPI Chief complaint: Worsening RLL swelling, pain, fever,chills History of present illness: Ms. Solis is a 46 year old female with a hx of penetrating wound to right leg who presents with worsening RLL swelling, pain, fever,chills, Admitted for sepsis 2/2 to infected penetrating injury to right leg. 2 days ago she had an accident around her home with penetrating injury to right leg. She was seen here in the ED and given IV antibiotics and discharged home with PO keflex. She returned after worsening symptoms and failing PO antibiotics at home with worsening pain, paresthesia in the area distal to wound. Associated fever and chills. Past Med Surg Social Fam HX - Past Medical History Medical history: arthritis, hyperlipidemia, hypertension Psychiatric history: anxiety, depression - Past Surgical History Surgical History: cholecystectomy, hysterectomy, knee replacement (Right December 2014) - Social History Smoking Status: Former smoker Smokeless Tobacco Status: No Alcohol use: none Drug use: none - Family History Mother Adopted: No Living Status: Still Living Hx Family Cardiac Disorders: Yes (Hypertension) Hx Family Respiratory Disorders: No Hx Family Cancer: No Hx Family GI Disorders: No Hx Family Endocrine Disorder: No Hx Family Neuromuscular Disorders: No Hx Family Neurologic Disorders: Yes (Seizure disorder) Hx Family HEENT Disorders: No Hx Family Autoimmune Disorders: No Internal Medicine - H&P: Meds Escitalopram [Lexapro] 20 mg PO DAILY 05/11/15 [History] Eszopiclone [Lunesta] 2 mg PO HS 05/11/15 [History] Gabapentin [Neurontin] 800 mg PO QID 05/11/15 [History] Losartan/HCTZ [Hyzaar 50-12.5 Tablet] 1 each PO BID 05/11/15 [History] Tizanidine HCl [Zanaflex] 6 mg PO HS 05/11/15 [History] amLODIPine [Norvasc] 10 mg PO DAILY 05/11/15 [History] Buspirone HCl [Buspar] 7.5 mg PO BID 08/06/16 [History] HYDROcodone/Acet 7.5/325 mg [[place] 7.5-325 mg] 1 tab PO Q6H PRN 08/06/16 [ History] Topiramate [Topamax] 50 mg PO BID 08/06/16 [History] Amoxicillin/Clavulanate [Augmentin] 875 mg PO BIDWM #20 tablet 09/02/16 [Rx] HYDROcodone/Acet 5/325 mg [[place] 5-325 mg] 1 tab PO Q4H PRN #10 tab 09/02/16 [Rx ] Clindamycin [Cleocin] 150 mg PO Q6HR #40 capsule 09/03/16 [Rx] Oxycodone HCl/Acetaminophen [Percocet 5-325 mg Tablet] 1 each PO Q4H PRN #20 tablet 11/04/16 [Rx] cephALEXin [Keflex] 500 mg PO TID #21 capsule 11/04/16 [Rx] 3 Allergy/AdvReac Type Severity Reaction Status Date / Time Iodinated Contrast- Oral and Allergy Hives Verified 11/06/16 21:11 IV Dye All Systems PM: A 10-system review of systems was performed and is negative for pertinent findings except as documented above in the HPI. Review of systems: ROS 14 point review of systems reviewed as best as possible given presentation. Pertinent positive or negative as per HPI or otherwise reviewed as negative - Constitutional Vitals: Temp Pulse Resp BP Pulse Ox 98.1 F 69 18 100/72 100 11/06/16 21:07 11/06/16 22:50 11/06/16 22:50 11/06/16 22:50 11/06/16 22:50 Exam: General - AAO x 3 Psych - Appropriate affect/speech. No agitation Eyes - LEE ANN. Eye lids intact. No scleral icterus Neuro - No gross peripheral or central neuro deficits Heart - Sinus. RRR. S1 and S2 present. No added HS/murmurs appreciated. No elevated JVD appreciated. No calf swellings/erythema Lung - Adequate air entry b/l, No crackles/wheezes appreciated GI - Soft, non-tender. No hepatosplenomegaly/ascites. BS+ - No CVA/suprapubic tenderness or palpable bladder distension Skin - Intact. No rash/petechiae/ecchymosis. Warm extremities MSK - right lower extremity wound with erythema, edema, patchy paresthesia inferior to the wound Internal Med - H&P Results - Labs CBC & Chem 7: 11/06/16 22:18 11/06/16 22:18
[2016-11-06] MEDS ORDERED: *HR* HYDROcodone/Acet 5/325 mg TABLET PO PRN (23:42)
[2016-11-07] MEDS: 0.9 % Sodium Chloride 1,000 ML IVC SCH ×5 (00:37→22:07)
[2016-11-07 00:44] LABS: Basophils % 0.4 %; Eosinophils # 0.3 K/mcL (0.0-0.6); Eosinophils % 3.3 %; Hematocrit 36.8 % (35.3-44.9); Hemoglobin 12.3 g/dL (11.5-15.4); Immature Granulocytes % 0.1 % (0-4); Lymphocytes # 2.9 K/mcL (0.6-4.6); Lymphocytes % 39.2 %; Mean Corpuscular HGB Conc 33.4 g/dL (31.6-35.5); Mean Corpuscular Hemoglobin 30.8 pg (28.0-33.3); Mean Platelet Volume 10.7 fL (9.4-12.4); Monocytes # 0.6 K/mcL (0.0-1.3); Monocytes % 7.4 %; Neutrophils # 3.7 K/mcL (1.6-8.9); Platelet Count 172 K/mcL (140-400); Red Cell Distribution Width 12.7 % (11.5-14.5); Segmented Neutrophils % 49.6 %
[2016-11-07 00:55] LABS: BUN/Creatinine Ratio 9 (6-26); Blood Urea Nitrogen 7 mg/dL (7-20); Calcium 9.2 mg/dL (8.6-10.8); Carbon Dioxide 27 mEq/L (19-29); Chloride 104 mEq/L (98-109); Glucose 149 mg/dL (70-99); Osmolality,Calculated 289 (280-300); Potassium 3.5 mEq/L (3.5-4.5); Sodium 139 mEq/L (136-145); eGFR For African Americans > 60 (> 60); eGFR For Non-African Americans > 60 (> 60)
[2016-11-07] MEDS ORDERED: Vancomycin 1,000 MG in D5% in Water 250 ML IVPB ONE (01:00)
[2016-11-07] MEDS: *HR* HYDROmorphone (PF) 1 MG/ML SYRINGE IVP PRN ×9 (02:04→23:57)
[2016-11-07] MEDS: Piperacillin/Tazobactam 3.375 GM in D5% in Water (Mini-Bag+) 100 ML IVPB SCH ×3 (05:59→22:06)
[2016-11-07] MEDS ORDERED: *HR* Enoxaparin 40 MG/0.4 ML SYRINGE SQ SCH (06:00)
[2016-11-07] MEDS ORDERED: predniSONE 20 MG TABLET PO ONE ×2 (06:00→12:00)
[2016-11-07] MEDS: Topiramate 25 MG TABLET PO SCH ×2 (08:35→21:50)
[2016-11-07] MEDS: Gabapentin 400 MG CAPSULE PO SCH ×4 (08:36→21:41)
[2016-11-07] MEDS ORDERED: Losartan/HCTZ 50-12.5 TABLET PO SCH (09:00)
[2016-11-07] MEDS ORDERED: amLODIPine 5 MG TABLET PO SCH (09:00)
--- NOTE | 2016-11-07 09:34 | Internal Med Progress Note ---
Date of Encounter: 11/07/16 Time of Encounter: 09:30 - Assessment and plan (1) Traumatic open wound of lower leg with infection Current Visit: Yes Status: Acute Assessment and plan: Iv Zosyn and vancomycin, iv Dilaudid for pain, increase freq. to Q2H, hold for sedation or low BP. Ortho consult. Spoke w/ Dr Diana, he will evaluate pt. High risk due to frequent doses of iv opiates for pain. Qualifiers: Encounter type: initial encounter Laterality: right Qualified Code(s): S81.801A - Unspecified open wound, right lower leg, initial encounter; L08.9 - Local infection of the skin and subcutaneous tissue, unspecified (2) DVT prophylaxis Current Visit: No Status: Acute Assessment and plan: Lovenox 40mg (3) Tobacco abuse Current Visit: No Status: Chronic Assessment and plan: NRT (4) Anxiety and depression Current Visit: No Status: Acute Assessment and plan: ct homre meds - Subjective Interval history: Patient reports 12/07 RLE davey+ calf pain worse w/ any kind of movement described as: "like my bone is being ripped out", it has improved w/ iv Dilaudid last night but now she does not get significant relief. Denies associated fevers otr chills. - Constitutional Vitals: Temp Pulse Resp BP Pulse Ox 98.1 F 79 18 115/73 93 11/07/16 04:56 11/07/16 04:56 11/07/16 04:56 11/07/16 04:56 11/07/16 04:56 General appearance: Present: A&O X 3, severe distress - Extremities Exam Additional comments: RLE soft tissue edema, tenderness to palpation of calf and passive ROM of ankle and toes. wound on mid-davey w/o drainage. DP TD pulses are palpable. - Neurological Exam Neurological exam: Present: CN II-XII intact, oriented X3, no focal deficits. Absent: pronater drift, facial droop, speech deficit - Skin Skin exam: Present: dry, intact Internal Medicine: Result - Labs CBC & Chem 7: 11/07/16 00:37 11/07/16 00:37 Labs: Short CBC 11/07/16 Range/Units 00:37 WBC 7.5 (4.3-11.1) K/mcL Hgb 12.3 (11.5-15.4) g/dL Hct 36.8 (35.3-44.9) % Plt Count 172 (140-400) K/mcL Neutrophils # 3.7 (1.6-8.9) K/mcL BMP 11/07/16 00:37 Sodium 139 Potassium 3.5 Chloride 104 Carbon Dioxide 27 BUN 7 Creatinine 0.77 Glucose 149 H Calcium 9.2 - Impressions Impressions Tibia/Fibula X-Ray 11/07/16 00:00 IMPRESSION: Soft tissue swelling with soft tissue gas along the anteromedial aspect of the right lower leg consistent with history penetrating trauma. No evidence of fracture. D/ / Romario Canseco MD / Romario Canseco MD Interpreting Provider: Romario Canseco MD Consult Discharge Plan - Plan Referrals: NONE,PCP [Primary Care Provider] -
--- NOTE | 2016-11-07 10:21 | Orthopedic Consult Note ---
Date of Encounter: 11/07/16 Time of Encounter: 10:21 History of Present Illness HPI: Ms. Solis is a 46 year old female Status post Rebar ruba penetrating right lower extremity beginning anteromedial and by patient report going distal medial patient was seen in the emergency room at the time.The patient evaluation at that time and by palpation count reports numbness following the injury. Patient admitted overnight secondary to increased pain in the right leg. Physical exam Right lower extremity decreased sensation below the open wound, medial side similar to following initial injury. 2 cm open area with slight purulence anteromedial right lower leg Calf is soft no pain with passive range of motion of toes, some pain with passive range of motion of ankle. Patient with increased tenderness posterior medial no significant erythema no abnormal swelling. X-rays reviewed agree with radiologist here consistent with penetrating trauma. No fracture. Recommend continue IV antibiotics, spoke with hospitalist will order stat MRI continue local wound care. Discussed case with Dr. Funes foot and ankle physician environmental program manager discussed case he will see patient. Labwork reviewed elevated CRP and ESR, on exam no gross evidence of significant infectious process MRI will help determine if there is something developing deep as well as determine other potential injuries. Past Med Surg Social Fam HX - Past Medical History Medical history: arthritis, hyperlipidemia, hypertension Psychiatric history: anxiety, depression - Past Surgical History Surgical History: cholecystectomy, hysterectomy, knee replacement - Social History Smoking Status: Former smoker Smokeless Tobacco Status: No Alcohol use: none Drug use: none - Family History Mother Adopted: No Living Status: Still Living Hx Family Cardiac Disorders: Yes (Hypertension) Hx Family Respiratory Disorders: No Hx Family Cancer: No Hx Family GI Disorders: No Hx Family Endocrine Disorder: No Hx Family Neuromuscular Disorders: No Hx Family Neurologic Disorders: Yes (Seizure disorder) Hx Family HEENT Disorders: No Hx Family Autoimmune Disorders: No Medications and Allergies Escitalopram [Lexapro] 20 mg PO DAILY 05/11/15 [History] Eszopiclone [Lunesta] 2 mg PO HS 05/11/15 [History] Gabapentin [Neurontin] 800 mg PO QID 05/11/15 [History] Losartan/HCTZ [Hyzaar 50-12.5 Tablet] 1 each PO BID 05/11/15 [History] Tizanidine HCl [Zanaflex] 6 mg PO HS 05/11/15 [History] amLODIPine [Norvasc] 10 mg PO DAILY 05/11/15 [History] Buspirone HCl [Buspar] 7.5 mg PO BID 08/06/16 [History] HYDROcodone/Acet 7.5/325 mg [[place] 7.5-325 mg] 1 tab PO Q6H PRN 08/06/16 [ History] Topiramate [Topamax] 50 mg PO BID 08/06/16 [History] Amoxicillin/Clavulanate [Augmentin] 875 mg PO BIDWM #20 tablet 09/02/16 [Rx] HYDROcodone/Acet 5/325 mg [[place] 5-325 mg] 1 tab PO Q4H PRN #10 tab 09/02/16 [Rx ] Clindamycin [Cleocin] 150 mg PO Q6HR #40 capsule 09/03/16 [Rx] Oxycodone HCl/Acetaminophen [Percocet 5-325 mg Tablet] 1 each PO Q4H PRN #20 tablet 11/04/16 [Rx] cephALEXin [Keflex] 500 mg PO TID #21 capsule 11/04/16 [Rx] 3 Allergy/AdvReac Type Severity Reaction Status Date / Time Iodinated Contrast- Oral and Allergy Hives Verified 11/06/16 21:11 IV Dye All Systems Reviewed: A 10-system review of systems was performed and is negative for pertinent findings except as documented above in the HPI. Physical Exam - Constitutional Vitals: Temp Pulse Resp BP Pulse Ox 98.1 F 85 16 118/72 93 11/07/16 10:16 11/07/16 10:16 11/07/16 10:16 11/07/16 10:16 11/07/16 10:16 Results - Labs Result Diagrams: 11/07/16 00:37 11/07/16 00:37 Labs: Abnormal lab results ESR 64 mm/hr (0-15) H 11/06/16 22:18 Glucose 149 mg/dL (70-99) H 11/07/16 00:37 C-Reactive Protein 172 mg/L (Less than 5) H 11/06/16 22:18 H & H 11/07/16 Range/Units 00:37 Hgb 12.3 (11.5-15.4) g/dL Hct 36.8 (35.3-44.9) % All other labs normal. Consult Discharge Plan - Plan Referrals: NONE,PCP [Primary Care Provider] -
[2016-11-07] MEDS ORDERED: Vancomycin 1,000 MG in D5% in Water 250 ML IVPB SCH (11:00)
[2016-11-07] MEDS: Vancomycin 1,500 MG in D5% in Water 250 ML IVPB SCH (13:32)
--- NOTE | 2016-11-07 14:42 | Podiatry Consult Note ---
Date of Encounter: 11/07/16 Time of Encounter: 02:00 Assessment and Plan (1) Puncture wound of leg not thigh, right Current visit: Yes Status: Acute I had a thorough review with the patient regarding her injury/condition, my findings, and recommendations for treatment. Reviewed xray findings and MRI findings and has been report of purulent drainage. Discussed with patient surgical incision and drainage. she understood this will be a staged procedure and the wound would be partially closed and packed open. informed consent obtained after discussing the risks vs benefits potential complications and consequences of the procedure. cannot predict at this time last effects of injury. c/w IV antibiotics. consult infectious disease. NPO. spoke with anesthesia, spoke with bed management, call manager to OR. Qualifiers: Encounter type: sequela Qualified Code(s): S81.831S - Puncture wound without foreign body, right lower leg, sequela History of Present Illness Chief complaint: injury and infection through right leg HPI: Ms. Solis is a 46 year old female says on 11/04 she was walking out of her house and fell onto rebar which went through her right leg and was tenting the skin on the back of her leg. She went to the ER and received a dose of IV antibiotics. She was discharged on oral keflex. Yesterday she was developing worsening pain, reports fever and chills and was admitted to the hospital. Hospital notes mention purulent drainage from the wound. Xrays done report soft tissue gas/air lucencies consistent with injury. MRI done showing fluid collection. Tetanus status is now up to date. Reports pain and paresthesias from the leg into her right foot. Says the pain is worsening in the leg since being admitted, the redness she says has gone down. Past Med Surg Social Fam HX - Past Medical History Medical history: arthritis, hyperlipidemia, hypertension Psychiatric history: anxiety, depression - Past Surgical History Surgical History: cholecystectomy, hysterectomy, knee replacement - Social History Smoking Status: Former smoker Smokeless Tobacco Status: No Alcohol use: none Drug use: none - Family History Mother Adopted: No Living Status: Still Living Hx Family Cardiac Disorders: Yes (Hypertension) Hx Family Respiratory Disorders: No Hx Family Cancer: No Hx Family GI Disorders: No Hx Family Endocrine Disorder: No Hx Family Neuromuscular Disorders: No Hx Family Neurologic Disorders: Yes (Seizure disorder) Hx Family HEENT Disorders: No Hx Family Autoimmune Disorders: No Medications and Allergies Escitalopram [Lexapro] 20 mg PO DAILY 05/11/15 [History] Eszopiclone [Lunesta] 2 mg PO HS 05/11/15 [History] Gabapentin [Neurontin] 800 mg PO QID 05/11/15 [History] Losartan/HCTZ [Hyzaar 50-12.5 Tablet] 1 each PO BID 05/11/15 [History] Tizanidine HCl [Zanaflex] 6 mg PO HS 05/11/15 [History] amLODIPine [Norvasc] 10 mg PO DAILY 05/11/15 [History] Buspirone HCl [Buspar] 7.5 mg PO BID 08/06/16 [History] HYDROcodone/Acet 7.5/325 mg [Ideal 7.5-325 mg] 1 tab PO Q6H PRN 08/06/16 [ History] Topiramate [Topamax] 50 mg PO BID 08/06/16 [History] Amoxicillin/Clavulanate [Augmentin] 875 mg PO BIDWM #20 tablet 09/02/16 [Rx] HYDROcodone/Acet 5/325 mg [Ideal 5-325 mg] 1 tab PO Q4H PRN #10 tab 09/02/16 [Rx ] Clindamycin [Cleocin] 150 mg PO Q6HR #40 capsule 09/03/16 [Rx] Oxycodone HCl/Acetaminophen [Percocet 5-325 mg Tablet] 1 each PO Q4H PRN #20 tablet 11/04/16 [Rx] cephALEXin [Keflex] 500 mg PO TID #21 capsule 11/04/16 [Rx] 3 Allergy/AdvReac Type Severity Reaction Status Date / Time Iodinated Contrast- Oral and Allergy Hives Verified 11/06/16 21:11 IV Dye All Systems Reviewed: A 10-system review of systems was performed and is negative for pertinent findings except as documented above in the HPI. - Constitutional Constitutional: as per HPI - Cardiovascular Cardiovascular: as per HPI - Respiratory Respiratory: as per HPI - Musculoskeletal Musculoskeletal: as per HPI Physical Exam - Constitutional Vitals: Temp Pulse Resp BP Pulse Ox 98.1 F 85 16 118/72 93 11/07/16 10:16 11/07/16 10:16 11/07/16 10:16 11/07/16 10:16 11/07/16 10:16 - Ankle & Foot Exam: well developed and nourished female in no acute distress CFT < 3 sec x 5 digits right foot. right foot warm to touch. right leg edema. penetrating trauma site anteromedial leg with serosanguinous drainage, unable to squeeze to see if can express purulence. area of ecchymosis posteriorly. manual muscle strength intact but painful to perform. pain with palpation at penetrating entry site anteromedial and posteriorly in the mid to distal calf. reports paresthesias and altered sensation, does feel touch to toes MRI and xrays reviewed Results - Labs Result Diagrams: 11/07/16 00:37 11/07/16 00:37 Labs: Abnormal lab results ESR 64 mm/hr (0-15) H 11/06/16 22:18 Glucose 149 mg/dL (70-99) H 11/07/16 00:37 C-Reactive Protein 172 mg/L (Less than 5) H 11/06/16 22:18 H & H 11/07/16 Range/Units 00:37 Hgb 12.3 (11.5-15.4) g/dL Hct 36.8 (35.3-44.9) % All other labs normal. Consult Discharge Plan - Plan Referrals: NONE,PCP [Primary Care Provider] -
[2016-11-07] MEDS ORDERED: Bupivacaine/Clonidine Syringe 1 EACH SYRINGE ONE (18:13)
[2016-11-07] MEDS ORDERED: Lidocaine -MPF 2% 2 ML VIAL ONE ×2 (18:29)
[2016-11-07] MEDS ORDERED: *HR* Propofol 200 MG/20 ML VIAL IVP ONE (18:29)
[2016-11-07] MEDS ORDERED: *HR* FentaNYL (PF) 100 MCG/2 ML VIAL ONE (18:29)
[2016-11-07] MEDS ORDERED: *HR* Midazolam HCl 2 MG/2 ML VIAL ONE (18:29)
[2016-11-07] MEDS ORDERED: *HR* Succinylcholine 200 MG/10 ML VIAL IVP ONE (18:32)
[2016-11-07] MEDS ORDERED: Lidocaine -MPF 4% 5 ML AMPUL ONE (18:33)
[2016-11-07] MEDS ORDERED: Acetaminophen IV 1,000 MG/100 ML INFUS..BTL ONE (18:40)
[2016-11-07] MEDS ORDERED: Famotidine 20 MG/2 ML VIAL ONE (18:40)
[2016-11-07] MEDS ORDERED: Metoclopramide 10 MG/2 ML VIAL ONE (18:40)
--- NOTE | 2016-11-07 18:45 | Anesthesia Evaluation PreOp ---
Date of Encounter: 11/07/16 Time of Encounter: 18:43 - Past History Planned Operation: I&D penetrating wound LLE Cardiac History: HTN (maintained on Losartan/Hctz, Norvasc,), Hyperlipidemia Pulmonary History: Smoker JUNIOR UNDERWRITER History: Other (Anxiety/Depression maintained on Lexapro, Buspar. Chronic Pain maintained on Neurontin) Anesthesia History: No Prior Anesthetic Complications, Past Anesthesia (Geovanan, Hyster, R-TKR 12/2014, Knee surgery x 3.) Alcohol Use: none Drug use: none Medications and Allergies Escitalopram [Lexapro] 20 mg PO DAILY 05/11/15 [History] Gabapentin [Neurontin] 800 mg PO QID 05/11/15 [History] Losartan/HCTZ [Hyzaar 50-12.5 Tablet] 1 tab PO BID 05/11/15 [History] amLODIPine [Norvasc] 10 mg PO DAILY 05/11/15 [History] Buspirone HCl [Buspar] 7.5 mg PO BID 08/06/16 [History] HYDROcodone/Acet 5/325 mg [[place] 5-325 mg] 1 tab PO Q4H PRN #10 tab 09/02/16 [Rx ] 3 Allergy/AdvReac Type Severity Reaction Status Date / Time Iodinated Contrast- Oral and Allergy Hives Verified 11/06/16 21:11 IV Dye - Meds/Allergy Pre-op Review Medications Reviewed: Yes Allergies Reviewed: Yes Beta Blockers on Current Med List: No Anesthesia Results - Labs 11/07/16 00:37 11/07/16 00:37 Laboratory Results WBC 7.5 K/mcL (4.3-11.1) 11/07/16 00:37 RBC 4.00 M/mcL (3.82-4.97) 11/07/16 00:37 Hgb 12.3 g/dL (11.5-15.4) 11/07/16 00:37 Hct 36.8 % (35.3-44.9) 11/07/16 00:37 MCV 92.0 fL (83.0-100.0) 11/07/16 00:37 MCH 30.8 pg (28.0-33.3) 11/07/16 00:37 MCHC 33.4 g/dL (31.6-35.5) 11/07/16 00:37 RDW 12.7 % (11.5-14.5) 11/07/16 00:37 Plt Count 172 K/mcL (140-400) 11/07/16 00:37 MPV 10.7 fL (9.4-12.4) 11/07/16 00:37 Immature Gran % 0.1 % (0-4) 11/07/16 00:37 Seg Neutrophils % 49.6 % 11/07/16 00:37 Lymphocytes % 39.2 % 11/07/16 00:37 Monocytes % 7.4 % 11/07/16 00:37 Eosinophils % 3.3 % 11/07/16 00:37 Basophils % 0.4 % 11/07/16 00:37 Neutrophils # 3.7 K/mcL (1.6-8.9) 11/07/16 00:37 Lymphocytes # 2.9 K/mcL (0.6-4.6) 11/07/16 00:37 Monocytes # 0.6 K/mcL (0.0-1.3) 11/07/16 00:37 Eosinophils # 0.3 K/mcL (0.0-0.6) 11/07/16 00:37 Basophils # 0.0 K/mcL (0.0-0.2) 11/07/16 00:37 ESR 64 mm/hr (0-15) H 11/06/16 22:18 Sodium 139 mEq/L (136-145) 11/07/16 00:37 Potassium 3.5 mEq/L (3.5-4.5) 11/07/16 00:37 Chloride 104 mEq/L (98-109) 11/07/16 00:37 Carbon Dioxide 27 mEq/L (19-29) 11/07/16 00:37 BUN 7 mg/dL (7-20) 11/07/16 00:37 Creatinine 0.77 mg/dL (0.57-1.11) 11/07/16 00:37 Est GFR ( Amer) > 60 (> 60) 11/07/16 00:37 Est GFR (Non-Af Amer) > 60 (> 60) 11/07/16 00:37 BUN/Creatinine Ratio 9 (6-26) 11/07/16 00:37 Glucose 149 mg/dL (70-99) H 11/07/16 00:37 Calculated Osmolality 289 (280-300) 11/07/16 00:37 Lactic Acid 1.7 mmol/L (0.5-2.2) 11/07/16 03:51 Calcium 9.2 mg/dL (8.6-10.8) 11/07/16 00:37 Creatine Kinase 153 Units/L (29-168) 11/06/16 22:18 C-Reactive Protein 172 mg/L (Less than 5) H 11/06/16 22:18 Impressions Tibia/Fibula X-Ray 11/07/16 00:00 IMPRESSION: Soft tissue swelling with soft tissue gas along the anteromedial aspect of the right lower leg consistent with history penetrating trauma. No evidence of fracture. D/ / Romario Canseco MD / Romario Canseco MD Interpreting Provider: Romario Canseco MD Lower Extremity MRI 11/07/16 10:29 IMPRESSION: 1. Extensive subcutaneous soft tissue edema of the calf as described compatible with cellulitis in the clinical setting of infection. A 2.8 cm loculated fluid collection with signal characteristics suggestive of a hematoma. Superimposed infection of the hematoma cannot be excluded. Additional areas of signal hypointensity scattered in the medial calf likely represent hemosiderin in the setting of chronic blood product deposition 2. No evidence for osteomyelitis. D/ / 11/07/2016 13:55:13 Javier Reyna MD / Chloe Husain Interpreting Provider: Javier Reyna MD Anesthesia Exam Vital Signs Temp Pulse Resp BP Pulse Ox 11/07/16 14:57 98 F 96 16 134/80 98 11/07/16 10:16 98.1 F 85 16 118/72 93 11/07/16 04:56 98.1 F 79 18 115/73 93 11/07/16 00:06 97.6 F 74 16 106/68 94 11/06/16 23:46 98 F 18 108/74 11/06/16 22:50 69 18 100/72 100 11/06/16 22:11 74 18 124/76 97 11/06/16 21:07 98.1 F 92 18 111/74 99 Intake and Output 11/07/16 11/07/16 11/07/16 07:59 15:59 23:59 Intake Total 3000 / 3000 1700 / 1700 Output Total 0 / 0 700 / 700 Balance 3000 / 3000 1000 / 1000 Intake: IV Fluids 2600 / 2600 1100 / 1100 0.9 % Sodium Chloride 1, 2000 / 2000 1000 / 1000 000 ML @ 100 mls/hr IVC . Q10H DAVY Rx#:[id number] Zosyn 3.375 GM In 100 / 100 100 / 100 Dextrose 5% (Minibag+) 100 ML 100 ML @ 25 mls/hr IVPB Q8H DAVY Rx#: [id number] Vancocin 1,000 MG In 500 / 500 Dextrose 5% 250 ML @ 166. 667 mls/hr IVPB 0100 ONE Rx#:[id number] Oral 400 / 400 600 / 600 Output: Urine 0 / 0 700 / 700 Other: Meal Breakfast NPO Percent of Meal Consumed 100% # Voids 2 Weight 102.313 kg Patient Weight 11/07/16 23:59 Weight 102.313 kg Height: 5'9" Weight: 225# BMI = 33 NPO (# of Hours): 11am - LUNCH - HEENT Pupil (Motor): Pupils equal, EOMI Mallampati: II Teeth: Normal Oral Opening: Greater than 3 - JUNIOR UNDERWRITER LOC: Oriented JUNIOR UNDERWRITER Motor: Normal RUE, Normal LUE, Normal RLE, Normal LLE, Normal Face JUNIOR UNDERWRITER Sensory: Normal: RUE, LUE, RLE, LLE, Face - Cardiac Rhythm: Regular Murmur: None - Pulmonary Breath Sounds: bilateral Clear Respiratory Effort: Symmetrical Anesthesia Assess/Plan ASA Score: 2 (Smoker, HTN, Chol, Anxiety/Depression) Modified Rumson Scale for Level of Consciousness: Cooperative, oriented, and tranquil Anesthetic Plan: General Monitoring Plan: Standard Monitors Recovery Plan: PACU Anes Supervising Prov Stmt: Pt seen/evaluated, R&B Discussed, questions answered and consent obtained. Mohinder Mccoy MD
[2016-11-07] MEDS ORDERED: Albuterol 2.5 MG/3 ML NEBULIZER ONE (18:46)
[2016-11-07] MEDS ORDERED: Albuterol 2.5 MG/3 ML NEBULIZER IH ONE (18:56)
[2016-11-07] MEDS ORDERED: Metoclopramide 10 MG/2 ML VIAL IVP PRN (18:56)
[2016-11-07] MEDS ORDERED: Famotidine 20 MG/2 ML VIAL IVP ONE (18:57)
[2016-11-07] MEDS ORDERED: Dexamethasone 4 MG/ML VIAL ONE (19:18)
[2016-11-07] MEDS ORDERED: Ondansetron 4 MG/2 ML VIAL ONE (19:18)
[2016-11-07] MEDS ORDERED: *HR* Promethazine 25 MG/ML VIAL IVP PRN (19:25)
[2016-11-07] MEDS ORDERED: *HR* HYDROmorphone 2 MG/ML SYRINGE ONE (19:30)
[2016-11-07] MEDS ORDERED: Ketorolac 30 MG/ML VIAL ONE (19:30)
[2016-11-07] MEDS ORDERED: *HR* OxyCODONE/APAP 5/325 TABLET PO PRN (20:05)
[2016-11-07] MEDS ORDERED: *HR* OxyCODONE/APAP 10/325 TABLET PO PRN (20:06)
--- NOTE | 2016-11-07 20:28 | Operative Note ---
Date of procedure: 11/07/16 Pre-op diagnosis: gas gangrene, abscess right leg Post-op diagnosis: same Procedure: incision and drainage of right leg Implants: none Complications: none Anesthesia: GETA Local Anesthetics: 0.5% Sensorcaine HCL SubQ (cc) Surgeon: Hector Funes Estimated blood loss (cc): 15 Specimen: right leg culture Condition: stable Disposition: PACU Procedure in Detail: Indications: 46-year-old female who had penetrating trauma to the right leg with Rebar on 11/04/16. She was seen in the emergency room had a tetanus shot received IV antibiotics and given a prescription for Keflex. She was discharged home and returned on the evening of 11/06/16 with reported fever, chills and worsening right leg pain. She was admitted. I was consulted on by Orthopedics for evaluation. Patient had x-rays done showing soft tissue gas and MRI showing fluid collection. Decision was made to take the patient to the operating room for incision and drainage right lower extremity. Risks versus benefits potential complications and consequences of the procedure and the patients injury were discussed preoperatively. Patient signed the informed consent patient was taken from the preoperative holding area and the operating room placed on the operating room table in the supine position the right leg was scrubbed prepped and draped in the usual sterile fashion 0.5% Marcaine plain was injected into the right leg and regionally over the saphenous nerve. A thigh tourniquet was inflated to 300 mmHg. The following procedure then began. Incision and drainage right leg. Attention was directed to the anterior medial aspect of the patients right leg where entry site with purulent drainage was expressed. A #10 blade was used to make an incision approximately 10 cm in length starting proximal from the entry site extending distally along the anterior medial aspect of the tibia. Blunt dissection was carried out with a hemostat and Metzenbaum scissors. Surrounding the entry site and extending in a posterior direction it should be noted that there was serosanguineous drainage with purulence which was evacuated. Culture swabs were obtained and sent to microbiology. There was also a small shard of metal removed from the surgical site. Clark devitalized tissue around the entry site was excisionally debrided with a #15 blade. There was a pocket of what appeared to be a hematoma mixed with purulent drainage extending posteriorly in the superficial tissue which was evacuated. There was communication of the entry site extending to the posteromedial calf skin. The fascia did not appear to be penetrated by the injury. An incision was made over the posterior medial calf which was in communication with the anterior entry site. More serosanguinous drainage with purulence was expressed. The sites were flushed with a pulse lavage which had 3g of ancef mixed with the 3L bag of saline. Upon resinspection no further devitalized tissue or purulent drainage was present. Wound deemed adequate for retention sutures to be placed and the wounds were packed open with 2 inch iodorm packing. Postoperative bandaging included 4 x 4 gauze, abdominal pads, kerlix and an Sid wrap. The patient tolerated the anesthesia and the procedure well and was escorted to the recovery room with vital signs stable and vascular status intact to the right foot noted by instant capillary refill time to all digits of the right foot. Patient will return to the floor where she will continue IV antibiotics.
[2016-11-07] MEDS ORDERED: tiZANidine 4 MG TABLET PO SCH (21:00)
--- NOTE | 2016-11-07 21:25 | Anesthesia Evaluation Post Op ---
Date of Encounter: 11/07/16 Time of Encounter: 21:20 - Vital Signs Vital Signs: Last Vital Signs Temp 97.7 F 11/07/16 20:46 Pulse 83 11/07/16 20:54 Resp 16 11/07/16 20:54 BP 111/83 11/07/16 20:54 Pulse Ox 94 11/07/16 20:54 - Lungs Lungs: Clear Ascult./Percussion - Airway Airway: Non-obstructed - Cardiovascular Regular Rate - Mental Status Mental Status: Alert & Oriented, Answers Appropriately - Pain Pain Scale: 3 - Nausea Vomiting Nausea Vomiting: Not Present - Hydration Hydration: NPO - Discharge PostOp Status: Transfer Patient to floor
[2016-11-08] MEDS: Vancomycin 1,500 MG in D5% in Water 250 ML IVPB SCH (00:15)
[2016-11-08] MEDS: *HR* HYDROmorphone (PF) 1 MG/ML SYRINGE IVP PRN ×10 (02:01→22:59)
[2016-11-08] MEDS ORDERED: Naloxone 0.4 MG/ML INJ IVP PRN (02:34)
[2016-11-08] MEDS ORDERED: *HR* OxyCODONE/APAP 5/325 TABLET PO PRN (02:34)
[2016-11-08] MEDS: *HR* OxyCODONE/APAP 10/325 TABLET PO PRN ×3 (03:33→14:43)
[2016-11-08] MEDS: *HR* Enoxaparin 40 MG/0.4 ML SYRINGE SQ SCH (06:28)
[2016-11-08] MEDS: Piperacillin/Tazobactam 3.375 GM in D5% in Water (Mini-Bag+) 100 ML IVPB SCH ×2 (06:31→15:34)
[2016-11-08] MEDS: Topiramate 25 MG TABLET PO SCH ×2 (08:34→20:53)
[2016-11-08] MEDS: Gabapentin 400 MG CAPSULE PO SCH ×4 (08:34→20:53)
[2016-11-08] MEDS: Nicotine 21 MG PATCH.TD24 TD SCH (08:35)
[2016-11-08 08:36] LABS: Eosinophils % 0.1 %; Hematocrit 32.7 % (35.3-44.9); Hemoglobin 11.3 g/dL (11.5-15.4); Immature Granulocytes % 0.3 % (0-4); Lymphocytes % 19.8 %; Mean Corpuscular HGB Conc 34.6 g/dL (31.6-35.5); Mean Corpuscular Hemoglobin 31.9 pg (28.0-33.3); Mean Corpuscular Volume 92.4 fL (83.0-100.0); Mean Platelet Volume 10.9 fL (9.4-12.4); Monocytes % 5.8 %; Platelet Count 190 K/mcL (140-400); Red Blood Count 3.54 M/mcL (3.82-4.97); Red Cell Distribution Width 12.7 % (11.5-14.5); Segmented Neutrophils % 73.8 %
[2016-11-08 08:37] LABS: Basophils % 0.2 %; Lymphocytes # 2.1 K/mcL (0.6-4.6); Monocytes # 0.6 K/mcL (0.0-1.3); Neutrophils # 7.9 K/mcL (1.6-8.9)
[2016-11-08 08:51] LABS: BUN/Creatinine Ratio 10 (6-26); Blood Urea Nitrogen 7 mg/dL (7-20); Carbon Dioxide 25 mEq/L (19-29); Chloride 110 mEq/L (98-109); Glucose 77 mg/dL (70-99); Potassium 4.1 mEq/L (3.5-4.5); Sodium 142 mEq/L (136-145); eGFR For African Americans > 60 (> 60); eGFR For Non-African Americans > 60 (> 60)
[2016-11-08 08:52] LABS: Calcium 8.6 mg/dL (8.6-10.8); Osmolality,Calculated 291 (280-300)
[2016-11-08] MEDS ORDERED: Nicotine 21 MG PATCH.TD24 TD SCH (09:00)
[2016-11-08 10:23] LABS: Magnesium 1.6 mg/dL (1.6-2.6)
--- NOTE | 2016-11-08 12:56 | Podiatry Progress Note ---
Date of Encounter: 11/08/16 Time of Encounter: 12:00 - Assessment and Plan (1) Cellulitis, leg Current Visit: Yes Status: Acute Qualifiers: Laterality: right Qualified Code(s): L03.115 - Cellulitis of right lower limb (2) Traumatic open wound of lower leg with infection Current Visit: Yes Status: Acute Post op day #1. Incision line inspected, majority of iodoform packing removed with the exception of a small piece intact that is extending through the posterior medial calf incision line. Patient not able to tolerate removal of packing due to pain. Wound irrigated with saline. Iodoform gauze packed through the anterior incision line with 4x4 dry sterile gauze, kerlix and tape. No purulent drainage was expressed, no odor, no warmth. The anterior incision line is free from erythema, surrounding skin is pink, warm and dry. There is light periwound erythema to the posterior medial calf incision line with ecchymosis, no streaking. No fluctuance. ESR: 64, CRP: 172, WBC: 10.7 Blood cultures from 11/06/16: NGTD Wound cultures: prelim, no pathogens isolated. Dressing will remain intact until tomorrow, remainder of packing will be removed at that time. Will order Physical Therapy with crutches and weightbearing as tolerated. We will continue to monitor patient closely. Clinical picture will determine if patient needs to be taken back to surgery. Infectious disease will be consulted for antibiotic recommendations. Qualifiers: Encounter type: initial encounter Laterality: right Qualified Code(s): S81.801A - Unspecified open wound, right lower leg, initial encounter; L08.9 - Local infection of the skin and subcutaneous tissue, unspecified Subjective Interval history: Patient is status post I&D of the right leg by Dr. Funes on 11/07/2016. Patient is lying in bed with dressing intact to the right lower extremity. Patient states right lower extremity is very painful. No complaints of fever or chills. Objective - Vital Signs Vital Signs: Vital Signs Temp Pulse Resp BP Pulse Ox 11/08/16 10:57 98.3 F 96 15 116/69 95 11/08/16 06:53 98.1 F 76 15 126/73 98 11/08/16 03:31 98.1 F 67 15 109/68 98 11/08/16 00:00 98.3 F 82 16 101/61 96 11/07/16 23:00 98.4 F 69 14 118/68 93 11/07/16 22:01 97.9 F 74 16 120/78 93 11/07/16 21:30 98 F 77 16 127/77 93 11/07/16 21:23 97.4 F L 86 18 115/70 94 11/07/16 20:54 83 16 111/83 94 11/07/16 20:46 97.7 F 85 16 120/82 89 11/07/16 20:32 91 22 114/68 96 11/07/16 20:22 93 20 129/78 98 11/07/16 20:12 97.5 F L 95 12 135/86 100 11/07/16 18:50 16 134/80 98 11/07/16 14:57 98 F 96 16 134/80 98 Intake and Output 11/07/16 11/08/16 11/08/16 23:59 07:59 15:59 Intake Total 1100 / 1100 950 / 950 200 / 200 Output Total 700 / 700 400 / 400 Balance 1085 / 1085 250 / 250 -200 / -200 Intake: IV Fluids 1100 / 1100 350 / 350 0.9 % Sodium Chloride 1, 1000 / 1000 000 ML @ 100 mls/hr IVC . Q10H DAVY Rx#:[id number] Zosyn 3.375 GM In 100 / 100 100 / 100 Dextrose 5% (Minibag+) 100 ML 100 ML @ 25 mls/hr IVPB Q8H DAVY Rx#: [id number] Vancocin 1,500 MG In 250 / 250 Dextrose 5% 250 ML @ 166. 667 mls/hr IVPB Q12H DAVY Rx#:[id number] Oral 600 / 600 200 / 200 Output: Urine 700 / 700 400 / 400 Estimated Blood Loss Other: Meal NPO Weight 106.141 kg Patient Weight 11/08/16 23:59 Weight 106.141 kg - Exam Exam: General appearance: alert awake oriented X 3. Calm and pleasant, no acute distress.. Vascular: Right foot: Pedal pulses +2/4 DP/PT , No evidence of cyanosis, pallor or rubor, Edema graded at 1+/4, Skin Temperature warm, No calf pain with manual compression. capillary refill time is immediate to digits. Neurologic: Sensation intact with light touch to right foot. . Postop Exam: S/P Sutures intact to both incision lines. Open area to the center of the incision line to the anterior tibial region communicating through to the posterior medial calf incision line with iodoform gauze packing in place. Moderate amount of bloody drainage observed to dressing. No periwound erythema to the anterior incision line, light periwound erythema to the medial posterio incision line with ecchymosis. Minimal edema. - Lab Result Diagrams: 11/08/16 08:16 11/08/16 08:16 Labs: Abnormal lab results RBC 3.54 M/mcL (3.82-4.97) L 11/08/16 08:16 Hgb 11.3 g/dL (11.5-15.4) L 11/08/16 08:16 Hct 32.7 % (35.3-44.9) L 11/08/16 08:16 ESR 64 mm/hr (0-15) H 11/06/16 22:18 Chloride 110 mEq/L (98-109) H 11/08/16 08:16 C-Reactive Protein 172 mg/L (Less than 5) H 11/06/16 22:18 Vancomycin Trough 9.2 mcg/mL (10-20) L 11/08/16 11:53 - VTE Documentation of Mechanical Device: Intermittent pneumatic compression device Consult Discharge Plan - Plan Referrals: NONE,PCP [Primary Care Provider] -
[2016-11-08] MEDS ORDERED: Vancomycin 1,500 MG in D5% in Water 250 ML IVPB SCH (13:00)
[2016-11-08] MEDS: Vancomycin 2,000 MG in D5% in Water 500 ML IVPB SCH (15:33)
--- NOTE | 2016-11-08 18:50 | Internal Med Progress Note ---
Date of Encounter: 11/08/16 Time of Encounter: 10:00 - Assessment and plan (1) Traumatic open wound of lower leg with infection Current Visit: Yes Status: Acute Assessment and plan: 11/08/2016: Patient is postoperative operative day one status post debridement of the right lower extremity wound. Iv Zosyn and vancomycin, iv Dilaudid for pain, increase to 1 mg Q2H, hold for sedation or low BP. We will follow up intraoperative cultures and adjust antibiotic therapy accordingly. High risk for morbidity, mortality and complications due to frequent doses of iv opiates for pain. Qualifiers: Encounter type: initial encounter Laterality: right Qualified Code(s): S81.801A - Unspecified open wound, right lower leg, initial encounter; L08.9 - Local infection of the skin and subcutaneous tissue, unspecified (2) DVT prophylaxis Current Visit: No Status: Acute Assessment and plan: Lovenox 40mg (3) Tobacco abuse Current Visit: No Status: Chronic Assessment and plan: NRT (4) Anxiety and depression Current Visit: No Status: Acute Assessment and plan: ct homre meds - Subjective Interval history: 11/08/2016: Patient reports severe right lower extremity pain at the operative site. It is slightly improves with IV Dilaudid however its effect does not last long. She reports associated numbness of the anterior right davey 11/07/2016: Patient reports 12/07 RLE davey+ calf pain worse w/ any kind of movement described as: "like my bone is being ripped out", it has improved w/ iv Dilaudid last night but now she does not get significant relief. Denies associated fevers otr chills. - Constitutional Vitals: Temp Pulse Resp BP Pulse Ox 97.9 F 76 15 142/72 97 11/08/16 14:11/08/16 14:11/08/16 14:11/08/16 14:11/08/16 14:09 General appearance: Present: A&O X 3, severe distress - Eye Eye exam: Present: PERRL, conjuntiva pink, sclera anicteric Pupils: Present: PERRL - Respiratory Respiratory exam: Present: CTAB. Absent: accessory muscle use, rales, rhonchi, wheezes - Cardiovascular Cardiovascular exam: Present: RRR, +S1, +S2. Absent: diastolic murmur, gallop, rubs, systolic murmur - GI/Abdominal GI/Abdominal exam: Present: normal bowel sounds, soft, no peritoneal signs. Absent: distended, tenderness - Extremities Exam Additional comments: Right lower extremity calf covered with surgical dressing clean dry and intact. - Neurological Exam Neurological exam: Present: CN II-XII intact, oriented X3, no focal deficits. Absent: pronater drift, facial droop, speech deficit - Skin Skin exam: Present: dry, intact Internal Medicine: Result - Labs CBC & Chem 7: 11/08/16 08:16 11/08/16 08:16 Labs: Short CBC 11/08/16 Range/Units 08:16 WBC 10.7 (4.3-11.1) K/mcL Hgb 11.3 L (11.5-15.4) g/dL Hct 32.7 L (35.3-44.9) % Plt Count 190 (140-400) K/mcL Neutrophils # 7.9 (1.6-8.9) K/mcL BMP 11/08/16 08:16 Sodium 142 Potassium 4.1 Chloride 110 H Carbon Dioxide 25 BUN 7 Creatinine 0.68 Glucose 77 Calcium 8.6 - VTE Documentation of Mechanical Device: Intermittent pneumatic compression device Consult Discharge Plan - Plan Referrals: NONE,PCP [Primary Care Provider] -
[2016-11-08] MEDS: tiZANidine 4 MG TABLET PO SCH (20:54)
[2016-11-09] MEDS: *HR* OxyCODONE/APAP 10/325 TABLET PO PRN ×2 (00:18→05:53)
[2016-11-09] MEDS: Piperacillin/Tazobactam 3.375 GM in D5% in Water (Mini-Bag+) 100 ML IVPB SCH ×4 (00:19→22:00)
[2016-11-09] MEDS: Vancomycin 2,000 MG in D5% in Water 500 ML IVPB SCH ×2 (01:53→13:48)
[2016-11-09] MEDS: *HR* HYDROmorphone (PF) 1 MG/ML SYRINGE IVP PRN ×7 (04:24→22:00)
[2016-11-09] MEDS: *HR* Enoxaparin 40 MG/0.4 ML SYRINGE SQ SCH (05:53)
[2016-11-09 05:59] LABS: Basophils # 0.1 K/mcL (0.0-0.2); Basophils % 0.8 %; Eosinophils # 0.2 K/mcL (0.0-0.6); Eosinophils % 2.8 %; Hematocrit 33.5 % (35.3-44.9); Hemoglobin 11.3 g/dL (11.5-15.4); Immature Granulocytes % 0.1 % (0-4); Lymphocytes # 4.1 K/mcL (0.6-4.6); Lymphocytes % 52.9 %; Mean Corpuscular HGB Conc 33.7 g/dL (31.6-35.5); Mean Corpuscular Hemoglobin 31.1 pg (28.0-33.3); Mean Corpuscular Volume 92.3 fL (83.0-100.0); Mean Platelet Volume 10.4 fL (9.4-12.4); Monocytes # 0.5 K/mcL (0.0-1.3); Monocytes % 6.6 %; Neutrophils # 2.9 K/mcL (1.6-8.9); Platelet Count 213 K/mcL (140-400); Red Blood Count 3.63 M/mcL (3.82-4.97); Red Cell Distribution Width 12.9 % (11.5-14.5); Segmented Neutrophils % 36.8 %
[2016-11-09 06:02] LABS: BUN/Creatinine Ratio 11 (6-26); Blood Urea Nitrogen 8 mg/dL (7-20); Calcium 8.5 mg/dL (8.6-10.8); Carbon Dioxide 26 mEq/L (19-29); Chloride 108 mEq/L (98-109); Glucose 79 mg/dL (70-99); Magnesium 1.7 mg/dL (1.6-2.6); Osmolality,Calculated 289 (280-300); Potassium 3.6 mEq/L (3.5-4.5); Sodium 141 mEq/L (136-145); eGFR For African Americans > 60 (> 60); eGFR For Non-African Americans > 60 (> 60)
[2016-11-09] MEDS: Gabapentin 400 MG CAPSULE PO SCH ×4 (07:41→21:22)
[2016-11-09] MEDS: Nicotine 21 MG PATCH.TD24 TD SCH (07:41)
[2016-11-09] MEDS: Topiramate 25 MG TABLET PO SCH ×2 (07:42→21:24)
[2016-11-09] MEDS: Sennosides/Docusate Sodium TABLET PO SCH ×2 (11:59→21:22)
--- NOTE | 2016-11-09 14:42 | Internal Med Progress Note ---
Date of Encounter: 11/09/16 Time of Encounter: 14:39 - Assessment and plan (1) Traumatic open wound of lower leg with infection Current Visit: Yes Status: Acute Assessment and plan: Patient is postoperative operative day two status post debridement of the right lower extremity wound. Iv Zosyn and vancomycin, iv Dilaudid for pain, hold for sedation or low BP. We will follow up intraoperative cultures and adjust antibiotic therapy accordingly. Preliminary wound cultures: Gram negative ruba High risk for morbidity, mortality and complications due to frequent doses of iv opiates for pain. Podiatry on board and consultation appreciated Qualifiers: Encounter type: initial encounter Laterality: right Qualified Code(s): S81.801A - Unspecified open wound, right lower leg, initial encounter; L08.9 - Local infection of the skin and subcutaneous tissue, unspecified (2) Anxiety and depression Current Visit: No Status: Acute Assessment and plan: continue home medications (3) DVT prophylaxis Current Visit: No Status: Acute Assessment and plan: Lovenox SQ (4) Tobacco abuse Current Visit: No Status: Chronic Assessment and plan: Nicotine replacement therapy provided smoking cessation counseling provided - Subjective Interval history: Patient seen and examined at bedside. States pain controlled with dilaudid. Denies any overnight events. - Constitutional Vitals: Temp Pulse Resp BP Pulse Ox 98.3 F 61 15 125/76 96 11/09/16 11:35 11/09/16 11:35 11/09/16 11:35 11/09/16 11:35 11/09/16 11:35 General appearance: Present: A&O X 3, no acute distress, obese - Head Head exam: Present: atraumatic, normocephalic - Eye Eye exam: Present: conjuntiva pink, sclera anicteric - Respiratory Respiratory exam: Present: CTAB, respiratory distress, wheezes - Cardiovascular Cardiovascular exam: Present: RRR, +S1, +S2. Absent: diastolic murmur, gallop, rubs, systolic murmur - GI/Abdominal GI/Abdominal exam: Present: normal bowel sounds, soft, no peritoneal signs. Absent: distended, tenderness - Extremities Exam Extremities exam: Present: warm, radial pulses palpable and symmetrical (RLE dressing intact, right ankle edema, palpable pulses on b/l LE). Absent: calf tenderness - Neurological Exam Neurological exam: Present: alert, oriented X3 - Psychiatric Psychiatric exam: Present: normal affect, normal mood Internal Medicine: Result - Labs CBC & Chem 7: 11/09/16 05:39 11/09/16 05:39 Labs: Short CBC 11/09/16 Range/Units 05:39 WBC 7.8 (4.3-11.1) K/mcL Hgb 11.3 L (11.5-15.4) g/dL Hct 33.5 L (35.3-44.9) % Plt Count 213 (140-400) K/mcL Neutrophils # 2.9 (1.6-8.9) K/mcL BMP 11/09/16 05:39 Sodium 141 Potassium 3.6 Chloride 108 Carbon Dioxide 26 BUN 8 Creatinine 0.73 Glucose 79 Calcium 8.5 L - Impressions Impressions Tibia/Fibula X-Ray 11/09/16 13:02 IMPRESSION: Postsurgical changes from recent surgical drainage. No acute osseous abnormality. D/ / 11/09/2016 14:09:20 Fabio Henriquez MD / nieves Interpreting Provider: Fabio Henriquez MD - VTE Documentation of Mechanical Device: Intermittent pneumatic compression device Consult Discharge Plan - Plan Referrals: NONE,PCP [Primary Care Provider] -
--- NOTE | 2016-11-09 14:46 | Infectious Disease Consult ---
Date of Encounter: 11/09/16 Time of Encounter: 14:43 Assessment and Plan (1) Cellulitis, leg Status: Acute Assessment and plan: Location: Lower right leg Causative organism unclear. Swab culture gram stain shows GNR. Intra-op cultures preliminarily negative. Secondary to penetrating trauma sustained prior to admission. Tib/Fib x-ray completed 11/07/16 showed soft tissue swelling with soft tissue gas along the anteromedial aspect of the right lower leg consistent with history of penetrating trauma. Initial ESR 64, CRP 172. Podiatry was consulted and took the patient to the OR 11/07/16 for right leg I & D. Operative report reviewed. The wound did not penetrate the fascia, but there was a good amount of purulent drainage noted. Clinically, the patient is improved. She had no SIRS criteria. Blood cultures drawn 11/06/16 are NGTD x 2 sets. Continue Vancomycin IV. Pharmacy to dose. Goal trough ~15. Continue Zosyn 3.375 grams IV Q8H. Duration of treatment depends on the clinical picture. Given that the patient has right knee hardware, we will need to aggressive with antibiotic therapy to prevent further infection that may compromise her hardware. We will likely do two weeks of IV antibiotics before we transition to orals, assuming the patient continues to improve clinically. We will de-escalate antibiotics if/when able. Monitor renal function and for drug toxicity and dose-adjust antibiotics. Continue wound care and activity restrictions as outlined by the podiatry team. Qualifiers: Laterality: right Qualified Code(s): L03.115 - Cellulitis of right lower limb (2) Abscess of right lower extremity Status: Acute Assessment and plan: Secondary to penetrating trauma. Causative organism unclear. Failed outpatient oral antibiotics (Keflex). Status post right LE I & D 11/07/[address] Funes. Continue antibiotics as above. (3) Puncture wound of leg not thigh, right Status: Acute Assessment and plan: Patient reports a piece of metal rebar penetrated about 6 inches into her leg. Tdap updated in the ED last week. Qualifiers: Encounter type: sequela Qualified Code(s): S81.831S - Puncture wound without foreign body, right lower leg, sequela (4) History of total right knee replacement Status: Acute Assessment and plan: Patient reports a history of TKR 3 years ago. We will need to be aggressive in treating this infection to prevent seeding of the knee. Infectious Disease HPI - Data of Consult Patient: new to practice Consult date: 11/09/16 Requesting Physician: Andra Rosen MD Primary Care Provider: PCP NONE - Consult Narrative Reason for consult: RLE infection History of present illness: Ms. Solis is a 46 year old female with a past medical history of arthritis, hypertension, right total knee replacement. The patient was admitted to the hospital November 06 for right lower extremity cellulitis and abscess. We are consulted November 09 for recommendations regarding RLE infection. The patient's a 46-year-old female with a past medical history as stated above. The patient states that last she wanted her back door and sustained a penetrating trauma from a piece of metal into her right lower extremity. She was seen in the emergency department and given a dose of IV antibiotics and discharged home to complete a course of oral Keflex and she states her symptoms continued to get worse and she came back to the emergency department. Upon arrival, patient was mildly tachycardic, but she was afebrile and hemodynamically stable. Laboratory studies revealed a normal white blood cell count. X-ray of the tib-fib showed tissue swelling and some subcutaneous gas consistent with a penetrating trauma. There is no ostium myelitis noted. Elevated inflammatory markers were noted. Patient was started empirically on IV vancomycin and IV Zosyn. Wound culture was obtained. Blood cultures were drained 2 sets. The patient was admitted to the hospital for further evaluation. Admission, the patient has remained afebrile and hemodynamically stable. Podiatry was consulted and the patient was taken to the operating room on November 07 and had a right lower extremity incision and debridement. Does note a moderate amount of serosanguineous purulent drainage. Intraoperative cultures are no growth currently, but the swab culture obtained in the emergency department show gram-negative rods. Currently, patient is on IV vancomycin and IV Zosyn. We've been asked to evaluate and make further recommendations. A, the patient states that overall her leg feels about the same. She states that the swelling is worse, but the redness is better. She states the pain is about the same. She denies any fevers or chills or rigors. She denies any headache or neck pain. She denies any congestion, earache, or sore throat. She denies any chest pain, shortness of breath, or cough. She denies any nausea, vomiting, diarrhea, or constipation. She denies any abdominal pain and states her appetite is good. She denies any urinary complaints. She denies any oral thrush or skin lesions. CC: Andra Rosen MD Past Med Surg Social Fam HX - Past Medical History Attestation: Yes The following information was validated with the patient. Source: patient, old records reviewed, nursing notes reviewed Medical history: arthritis, hyperlipidemia, hypertension Psychiatric history: anxiety, depression - Past Surgical History Surgical History: cholecystectomy, hysterectomy, knee replacement (Right total knee replacement 2013) - Social History Smoking Status: Former smoker Smokeless Tobacco Status: No Alcohol use: none Drug use: none Occupational status: unemployed Current living situation: Home - Independent Activity Level: Independent ambulation Recent Out of Country Travel Within the Last 8 Weeks: No Exposure or Possible Exposure to Illness During Travel: No - Family History Mother Adopted: No Living Status: Still Living Hx Family Cardiac Disorders: Yes (Hypertension) Hx Family Respiratory Disorders: No Hx Family Cancer: No Hx Family GI Disorders: No Hx Family Endocrine Disorder: No Hx Family Neuromuscular Disorders: No Hx Family Neurologic Disorders: Yes (Seizure disorder) Hx Family HEENT Disorders: No Hx Family Autoimmune Disorders: No Infectious Disease-CN:Meds Escitalopram [Lexapro] 20 mg PO DAILY 05/11/15 [History] Gabapentin [Neurontin] 800 mg PO QID 05/11/15 [History] Losartan/HCTZ [Hyzaar 50-12.5 Tablet] 1 tab PO BID 05/11/15 [History] amLODIPine [Norvasc] 10 mg PO DAILY 05/11/15 [History] Buspirone HCl [Buspar] 7.5 mg PO BID 08/06/16 [History] HYDROcodone/Acet 5/325 mg [Watson 5-325 mg] 1 tab PO Q4H PRN #10 tab 09/02/16 [Rx ] 3 Allergy/AdvReac Type Severity Reaction Status Date / Time Iodinated Contrast- Oral and Allergy Hives Verified 11/06/16 21:11 IV Dye All systems: reviewed and no additional remarkable complaints except as stated Exam - Constitutional Vitals: Temp Pulse Resp BP Pulse Ox 98.3 F 61 15 125/76 96 11/09/16 11:35 11/09/16 11:35 11/09/16 11:35 11/09/16 11:35 11/09/16 11:35 General appearance: cooperative, no acute distress, obese - Head Head exam: Present: atraumatic, normal inspection, normocephalic - Eye Eye exam: Present: EOMI, normal appearance, PERRL Pupils: Present: normal accommodation - ENT ENT exam: Present: mucous membranes moist - Neck Neck exam: Present: normal inspection - Respiratory Respiratory exam: Present: CTAB. Absent: rales, respiratory distress, rhonchi, wheezes - Cardiovascular Cardiovascular exam: Present: RRR, +S1, +S2 - GI/Abdominal GI/Abdominal exam: Present: normal bowel sounds, soft. Absent: distended, tenderness - Extremities Exam Extremities exam: Present: pedal edema (2+ RLE), tenderness (lower RLE) Additional comments: Right lower extremity dressing C/D/I. + PMS distally. No erythema noted advancing past the dressing. - Neurological Exam Neurological exam: Present: alert, oriented X3, no focal deficits - Psychiatric Psychiatric exam: Present: normal affect, normal mood - Skin Skin exam: Present: dry, intact, normal color, warm Infectious Disease CN: Results - Labs CBC & Chem 7: 11/09/16 05:39 11/09/16 05:39 Cultures: Cultures 11/07/16 21:59 Wound Culture - Preliminary Right Leg No growth. Cultures 11/06/16 22:31 Wound Culture - Preliminary Left Leg Gram Negative Andry 11/07/16 21:59 Wound Culture - Preliminary Right Leg No growth. 11/06/16 22:23 Blood Culture - Preliminary Peripheral Venipuncture No growth. 11/06/16 22:18 Blood Culture - Preliminary Peripheral Venipuncture No growth. - VTE Documentation of Mechanical Device: Intermittent pneumatic compression device Consult Discharge Plan - Plan Referrals: NONE,PCP [Primary Care Provider] -
--- NOTE | 2016-11-09 17:04 | Podiatry Progress Note ---
Date of Encounter: 11/09/16 Time of Encounter: 12:30 - Assessment and Plan (1) Cellulitis, leg Current Visit: Yes Status: Acute Qualifiers: Laterality: right Qualified Code(s): L03.115 - Cellulitis of right lower limb (2) Traumatic open wound of lower leg with infection Current Visit: Yes Status: Acute Post op day #2. Incision line inspected, iodoform packing removed with out difficulty. Overall significant improvement. No purulent drainage was expressed, no odor, no warmth. The anterior incision line is free from erythema, surrounding skin is pink, warm and dry. There is light periwound erythema to the posterior medial calf incision line with ecchymosis, no streaking. No fluctuance. ESR: 64, CRP: 172, WBC; 7.8 and a febrile. Blood cultures from 11/06/16: NGTD Wound cultures, intraop: prelim, no pathogens isolated. Wound irrigated with saline. Mesalt ribbon packed through the anterior incision line and the posterior medial calf incision line with 4x4 dry sterile gauze, kerlix and megan wrap. Dressing will remain intact until tomorrow. Clinically the patients condition has improved, no further surgery will be needed at this time. Keep dressing intact until tomorrow, will write for wound care orders. Will order Physical Therapy with crutches and weightbearing as tolerated. We will continue to monitor patient closely. Infectious disease consulted for antibiotic recommendations. Qualifiers: Encounter type: initial encounter Laterality: right Qualified Code(s): S81.801A - Unspecified open wound, right lower leg, initial encounter; L08.9 - Local infection of the skin and subcutaneous tissue, unspecified Subjective Interval history: Patient is status post I&D of the right leg by Dr. Funes on 11/07/2016. Patient is lying in bed with dressing intact to the right lower extremity. Patient states right lower extremity continues to remain painful. Patient states her dressing slid off last night and had to be changed. No complaints of fever or chills overnight. Objective - Vital Signs Vital Signs: Vital Signs Temp Pulse Resp BP Pulse Ox 11/09/16 15:03 67 15 114/74 96 11/09/16 14:44 98.1 F 67 15 114/74 96 11/09/16 11:35 98.3 F 61 15 125/76 96 11/09/16 07:21 97.9 F 67 15 125/71 99 11/09/16 04:04 98.1 F 68 16 122/75 97 11/08/16 23:24 98.4 F 66 16 112/68 95 11/08/16 19:52 98.4 F 75 14 121/69 97 Intake and Output 11/09/16 11/09/16 11/09/16 07:59 15:59 23:59 Intake Total 720 / 720 1060 / 1060 Output Total 950 / 950 Balance -230 / -230 1060 / 1060 Intake: IV Fluids 600 / 600 100 / 100 Zosyn 3.375 GM In 100 / 100 100 / 100 Dextrose 5% (Minibag+) 100 ML 100 ML @ 25 mls/hr IVPB Q8H DAVY Rx#: [id number] Vancocin 2,000 MG In 500 / 500 Dextrose 5% 500 ML @ 250 mls/hr IVPB Q12H DAVY Rx#: [id number] Oral 120 / 120 960 / 960 Output: Urine 950 / 950 Other: Meal Lunch Percent of Meal Consumed 75% # Voids 1 1 Weight 106.141 kg Patient Weight 11/09/16 23:59 Weight 106.141 kg - Exam Exam: General appearance: alert awake oriented X 3. Calm and pleasant, no acute distress.. Vascular: Right foot: Pedal pulses +2/4 DP/PT , No evidence of cyanosis, pallor or rubor, Edema graded at 1+/4, Skin Temperature warm, No calf pain with manual compression. capillary refill time is immediate to digits. Neurologic: Sensation intact with light touch to right foot. . Postop Exam: S/P Sutures intact to both incision lines. Open area to the center of the incision line to the anterior tibial region communicating through to the posterior medial calf incision line with iodoform gauze packing in place. Moderate amount of bloody drainage observed to dressing. No periwound erythema to the anterior incision line, light periwound erythema to the medial posterior incision line with ecchymosis. Minimal edema. No purulent drainage, no streaking , no odor, no warmth. - Lab Result Diagrams: 11/09/16 05:39 11/09/16 05:39 Labs: Abnormal lab results RBC 3.63 M/mcL (3.82-4.97) L 11/09/16 05:39 Hgb 11.3 g/dL (11.5-15.4) L 11/09/16 05:39 Hct 33.5 % (35.3-44.9) L 11/09/16 05:39 ESR 64 mm/hr (0-15) H 11/06/16 22:18 Calcium 8.5 mg/dL (8.6-10.8) L 11/09/16 05:39 C-Reactive Protein 172 mg/L (Less than 5) H 11/06/16 22:18 Vancomycin Trough 9.2 mcg/mL (10-20) L 11/08/16 11:53 Microbiology, Last 48 Hours 11/07/16 21:59 Wound Culture - Preliminary Right Leg No growth. - VTE Documentation of Mechanical Device: Intermittent pneumatic compression device Consult Discharge Plan - Plan Referrals: NONE,PCP [Primary Care Provider] -
[2016-11-09] MEDS: tiZANidine 4 MG TABLET PO SCH (21:23)
[2016-11-10] MEDS: Vancomycin 2,000 MG in D5% in Water 500 ML IVPB SCH (01:05)
[2016-11-10] MEDS: *HR* HYDROmorphone (PF) 1 MG/ML SYRINGE IVP PRN ×6 (01:06→19:59)
[2016-11-10] MEDS: *HR* Enoxaparin 40 MG/0.4 ML SYRINGE SQ SCH (04:53)
[2016-11-10] MEDS: Sennosides/Docusate Sodium TABLET PO SCH ×2 (07:51→22:24)
[2016-11-10] MEDS: Topiramate 25 MG TABLET PO SCH ×2 (07:52→22:20)
[2016-11-10] MEDS: Gabapentin 400 MG CAPSULE PO SCH ×4 (07:52→22:21)
[2016-11-10] MEDS: Piperacillin/Tazobactam 3.375 GM in D5% in Water (Mini-Bag+) 100 ML IVPB SCH ×2 (07:54→14:02)
[2016-11-10 07:56] LABS: BUN/Creatinine Ratio 12 (6-26); Blood Urea Nitrogen 9 mg/dL (7-20); Carbon Dioxide 31 mEq/L (19-29); Chloride 103 mEq/L (98-109); Glucose 83 mg/dL (70-99); Osmolality,Calculated 288 (280-300); Phosphorous 4.8 mg/dL (2.3-4.7); Potassium 3.7 mEq/L (3.5-4.5); Sodium 140 mEq/L (136-145); eGFR For African Americans > 60 (> 60); eGFR For Non-African Americans > 60 (> 60)
[2016-11-10 08:23] LABS: Basophils % 0.6 %; Eosinophils # 0.3 K/mcL (0.0-0.6); Eosinophils % 4.1 %; Hematocrit 37.3 % (35.3-44.9); Hemoglobin 12.7 g/dL (11.5-15.4); Immature Granulocytes % 0.1 % (0-4); Lymphocytes # 2.6 K/mcL (0.6-4.6); Lymphocytes % 37.2 %; Mean Platelet Volume 10.6 fL (9.4-12.4); Monocytes # 0.4 K/mcL (0.0-1.3); Monocytes % 5.7 %; Neutrophils # 3.7 K/mcL (1.6-8.9); Platelet Count 276 K/mcL (140-400); Red Cell Distribution Width 12.8 % (11.5-14.5); Segmented Neutrophils % 52.3 %
[2016-11-10] MEDS: *HR* Promethazine 25 MG/ML VIAL IVP PRN ×2 (09:27→17:05)
[2016-11-10] MEDS ORDERED: Lidocaine -MPF 1% 2 ML VIAL ID PRN (13:58)
[2016-11-10] MEDS: *HR* OxyCODONE/APAP 10/325 TABLET PO PRN ×3 (14:04→22:20)
--- NOTE | 2016-11-10 14:09 | Infectious Disease Progress No ---
Date of Encounter: 11/10/16 Time of Encounter: 14:07 - Assessment and Plan (1) Cellulitis, leg Current Visit: Yes Status: Acute Location: Lower right leg Causative organism Stenotrophomonas maltophilia per swab culture. Intra- operative culture remains negative. Secondary to penetrating trauma sustained prior to admission. Tib/Fib x-ray completed 11/07/16 showed soft tissue swelling with soft tissue gas along the anteromedial aspect of the right lower leg consistent with history of penetrating trauma. Initial ESR 64, CRP 172. Podiatry was consulted and took the patient to the OR 11/07/16 for right leg I & D. Operative report reviewed. The wound did not penetrate the fascia, but there was a good amount of purulent drainage noted. Clinically, the patient is improved. She had no SIRS criteria. Blood cultures drawn 11/06/16 are NGTD x 2 sets. Discontinue Vanc and Zosyn. Start Bactrim 5mg/kg IV Q8H. Susceptibility report also shows sensitivity to Levaquin, but there is a high rate of resistance development with the use of levaquin. Duration of treatment depends on the clinical picture. Given that the patient has right knee hardware, we will need to aggressive with antibiotic therapy to prevent further infection that may compromise her hardware. We will likely do two weeks of IV antibiotics before we transition to orals, assuming the patient continues to improve clinically. Consult VAT for EPIV placement. Monitor renal function and for drug toxicity and dose-adjust antibiotics. Continue wound care and activity restrictions as outlined by the podiatry team. Consult social media analyst for discharge planning. Qualifiers: Laterality: right Qualified Code(s): L03.115 - Cellulitis of right lower limb (2) Abscess of right lower extremity Current Visit: Yes Status: Acute Secondary to penetrating trauma. Causative organism unclear. Failed outpatient oral antibiotics (Keflex). Status post right LE I & D 11/07/[address] Funes. Continue antibiotics as above. (3) Puncture wound of leg not thigh, right Current Visit: Yes Status: Acute Patient reports a piece of metal rebar penetrated about 6 inches into her leg. Tdap updated in the ED last week. Qualifiers: Encounter type: sequela Qualified Code(s): S81.831S - Puncture wound without foreign body, right lower leg, sequela (4) History of total right knee replacement Current Visit: Yes Status: Acute Patient reports a history of TKR 3 years ago. We will need to be aggressive in treating this infection to prevent seeding of the knee. - Subjective Interval history: Patient seen and examined. No acute events noted overnight. Patient resting quietly in bed with family at bedside. States her leg pain is better, but the swelling is worse today. Denies fevers or chills or rigors. Denies chest pain, shortness of breath, or cough. Complains of nausea, but this is improved after receiving phenergan earlier. Denies abdominal pain or urinary complaints. Denies diarrhea, vomiting, or constipation. Denies oral thrush or skin lesions. Infect Dis PN-Objective Data - Labs CBC & Chem 7: 11/10/16 06:43 11/10/16 06:43 Labs: Laboratory Results - last 24 hr 11/10/16 11/10/16 11/10/16 06:43 06:43 11:35 WBC 7.1 RBC 4.10 Hgb 12.7 Hct 37.3 MCV 91.0 MCH 31.0 MCHC 34.0 RDW 12.8 Plt Count 276 MPV 10.6 Immature Gran % 0.1 Seg Neutrophils % 52.3 Lymphocytes % 37.2 Monocytes % 5.7 Eosinophils % 4.1 Basophils % 0.6 Neutrophils # 3.7 Lymphocytes # 2.6 Monocytes # 0.4 Eosinophils # 0.3 Basophils # 0.0 Sodium 140 Potassium 3.7 Chloride 103 Carbon Dioxide 31 H BUN 9 Creatinine 0.76 Est GFR ( Amer) > 60 Est GFR (Non-Af Amer) > 60 BUN/Creatinine Ratio 12 Glucose 83 Calculated Osmolality 288 Calcium 9.0 Phosphorus 4.8 H Magnesium 2.0 Vancomycin Trough 16.9 Cultures: Cultures 11/07/16 21:59 Gram Stain - Final Right Leg 11/07/16 21:59 Anaerobic Culture - Preliminary Right Leg At this time, no anaerobic growth is present. The culture will be finalized after 5 days of incubation. 11/07/16 21:59 Wound Culture - Final Right Leg No growth. - Impressions Impressions Tibia/Fibula X-Ray 11/09/16 13:02 IMPRESSION: Postsurgical changes from recent surgical drainage. No acute osseous abnormality. D/ / 11/09/2016 14:09:20 Fabio Henriquez MD / nieves Interpreting Provider: Fabio Henriquez MD Exam - Constitutional Vitals: Temp Pulse Resp BP Pulse Ox 98.2 F 61 14 139/85 95 11/10/16 10:06 11/10/16 10:06 11/10/16 10:06 11/10/16 10:06 11/10/16 10:06 General appearance: cooperative, no acute distress, obese - Head Head exam: Present: atraumatic, normal inspection, normocephalic - Eye Eye exam: Present: EOMI, normal appearance, PERRL Pupils: Present: normal accommodation - ENT ENT exam: Present: mucous membranes moist - Neck Neck exam: Present: normal inspection - Respiratory Respiratory exam: Present: CTAB. Absent: rales, respiratory distress, rhonchi, wheezes - Cardiovascular Cardiovascular exam: Present: RRR, +S1, +S2 - GI/Abdominal GI/Abdominal exam: Present: normal bowel sounds, soft. Absent: distended, tenderness - Extremities Exam Extremities exam: Present: pedal edema (1+ RLE), tenderness (lower RLE). Absent : joint swelling Additional comments: Lower RLE dressing C/D/I. - Neurological Exam Neurological exam: Present: alert, oriented X3, no focal deficits - Psychiatric Psychiatric exam: Present: normal affect, normal mood - Skin Skin exam: Present: dry, intact, normal color, warm - VTE Documentation of Mechanical Device: Intermittent pneumatic compression device Consult Discharge Plan - Plan Referrals: Piero Mccullough DO [Resident] -
[2016-11-10] MEDS: Nicotine 21 MG PATCH.TD24 TD SCH (14:23)
--- NOTE | 2016-11-10 14:58 | Internal Med Progress Note ---
Date of Encounter: 11/10/16 Time of Encounter: 14:55 - Assessment and plan (1) Traumatic open wound of lower leg with infection Current Visit: Yes Status: Acute Assessment and plan: Patient is postoperative operative day three status post debridement of the right lower extremity wound. ID input appreciated. Started on IV Bactrim as per culture sensitivities turn out worker evaluation requested for arrangement of abx after discharge. High risk for morbidity, mortality and complications due to frequent doses of iv opiates for pain. Podiatry on board and consultation appreciated Qualifiers: Encounter type: initial encounter Laterality: right Qualified Code(s): S81.801A - Unspecified open wound, right lower leg, initial encounter; L08.9 - Local infection of the skin and subcutaneous tissue, unspecified (2) Anxiety and depression Current Visit: No Status: Acute Assessment and plan: continue home medications (3) DVT prophylaxis Current Visit: No Status: Acute Assessment and plan: Lovenox SQ (4) Tobacco abuse Current Visit: No Status: Chronic Assessment and plan: Nicotine replacement therapy provided smoking cessation counseling provided - Subjective Interval history: Patient seen and examined with family present at bedside. States pain controlled with dilaudid. Denies any overnight events. - Constitutional Vitals: Temp Pulse Resp BP Pulse Ox 98.7 F 67 14 122/65 95 11/10/16 14:50 11/10/16 14:50 11/10/16 14:50 11/10/16 14:50 11/10/16 14:50 General appearance: Present: A&O X 3, no acute distress, obese - Head Head exam: Present: atraumatic, normocephalic - Eye Eye exam: Present: conjuntiva pink, sclera anicteric - Respiratory Respiratory exam: Present: CTAB. Absent: respiratory distress, wheezes - Cardiovascular Cardiovascular exam: Present: RRR, +S1, +S2. Absent: diastolic murmur, gallop, rubs, systolic murmur - GI/Abdominal GI/Abdominal exam: Present: normal bowel sounds, soft, no peritoneal signs. Absent: distended, tenderness - Extremities Exam Extremities exam: Present: warm, radial pulses palpable and symmetrical. Absent : calf tenderness (right LE dressing intact, b/l pedal pulses intact) - Neurological Exam Neurological exam: Present: alert, oriented X3 - Psychiatric Psychiatric exam: Present: normal affect, normal mood Internal Medicine: Result - Labs CBC & Chem 7: 11/10/16 06:43 11/10/16 06:43 Labs: Short CBC 11/10/16 Range/Units 06:43 WBC 7.1 (4.3-11.1) K/mcL Hgb 12.7 (11.5-15.4) g/dL Hct 37.3 (35.3-44.9) % Plt Count 276 (140-400) K/mcL Neutrophils # 3.7 (1.6-8.9) K/mcL BMP 11/10/16 06:43 Sodium 140 Potassium 3.7 Chloride 103 Carbon Dioxide 31 H BUN 9 Creatinine 0.76 Glucose 83 Calcium 9.0 - VTE Documentation of Mechanical Device: Intermittent pneumatic compression device Consult Discharge Plan - Plan Referrals: Piero Mccullough DO [Resident] -
[2016-11-10] MEDS: TRIMETH IVPB SCH (15:04)
[2016-11-10] MEDS: WATER IVPB SCH (15:04)
[2016-11-10] MEDS: D5 IVPB SCH (15:04)
[2016-11-10] MEDS: SULFAMETHOXAZOLE IVPB SCH (15:04)
--- NOTE | 2016-11-10 16:48 | Podiatry Progress Note ---
Date of Encounter: 11/10/16 Time of Encounter: 12:45 - Assessment and Plan (1) Cellulitis, leg Current Visit: Yes Status: Acute Qualifiers: Laterality: right Qualified Code(s): L03.115 - Cellulitis of right lower limb (2) Traumatic open wound of lower leg with infection Current Visit: Yes Status: Acute Post op day #3. Incision line inspected, mesalt packing removed with out difficulty. Overall significant improvement. No purulent drainage, no odor, no warmth. The anterior incision line is free from erythema, surrounding skin is pink, warm and dry. There is light periwound erythema to the posterior medial calf incision line with ecchymosis, no streaking. No fluctuance. Blood cultures from 11/06/16: NGTD Wound cultures, intraop: no pathogens isolated. Wound culture isolated Stenotrophomonas maltophilia. Wound irrigated with saline. Maxsorb applied to the anterior incision line and 4x4 dry sterile gauze applied to the posterior medial calf incision line with 4x4 dry sterile gauze, kerlix and megan wrap. Dressing will remain intact until tomorrow. Clinically the patients condition has improved, no further surgery will be needed at this time. Keep dressing intact until tomorrow, dressing can be changed every other day and will continue this at home. PT/OT ordered, weightbearing as tolerated with crutches. We will continue to monitor patient closely. Infectious disease managing antibiotic therapy. From a Podiatry standpoint patient okay to be discharged. Continue dressing changes every other day, irrigate wound with saline, pat dry, apply Maxsorb to the anterior incision line with 4x4 dry sterile gauze on top and to the posterior medial calf incision line, with kerlix from toes to tibia and megan wrap from toes to tibia. Patient will need to f/u with Dr. Funes in Podiatry clinic one week after discharge from the hospital. Qualifiers: Encounter type: initial encounter Laterality: right Qualified Code(s): S81.801A - Unspecified open wound, right lower leg, initial encounter; L08.9 - Local infection of the skin and subcutaneous tissue, unspecified Subjective Interval history: Patient is status post I&D of the right leg by Dr. Funes on 11/07/2016. Patient is lying in bed with dressing intact to the right lower extremity. Patient states right lower extremity pain is better today. States her right foot is swollen. No complaints of fever or chills overnight. Objective - Vital Signs Vital Signs: Vital Signs Temp Pulse Resp BP Pulse Ox 11/10/16 14:50 98.7 F 67 14 122/65 95 11/10/16 10:06 98.2 F 61 14 139/85 95 11/10/16 08:04 98.7 F 68 16 133/87 94 11/10/16 05:20 98.3 F 62 14 132/80 99 11/10/16 00:36 98.2 F 71 16 127/70 97 11/09/16 20:25 98.4 F 67 20 138/85 97 Intake and Output 11/10/16 11/10/16 11/10/16 07:59 15:59 23:59 Intake Total 600 / 600 340 / 340 Output Total 0 / 0 2400 / 2400 Balance 600 / 600 -2060 / -2060 Intake: IV Fluids 600 / 600 100 / 100 Zosyn 3.375 GM In 100 / 100 100 / 100 Dextrose 5% (Minibag+) 100 ML 100 ML @ 25 mls/hr IVPB Q8H [facility] Rx#: [id number] Vancocin 2,000 MG In 500 / 500 Dextrose 5% 500 ML @ 250 mls/hr IVPB Q12H [facility] Rx#: [id number] Oral 0 / 0 240 / 240 Output: Urine 0 / 0 2400 / 2400 Other: Meal Lunch Percent of Meal Consumed 75% # Voids 5 1 Weight 106.186 kg Patient Weight 11/10/16 23:59 Weight 106.186 kg - Exam Exam: General appearance: alert awake oriented X 3. Calm and pleasant, no acute distress.. Vascular: Right foot: Pedal pulses +2/4 DP/PT , No evidence of cyanosis, pallor or rubor, Edema graded at 1+/4, Skin Temperature warm, No calf pain with manual compression. capillary refill time is immediate to digits. Neurologic: Sensation intact with light touch to right foot. . Postop Exam: S/P Sutures intact to both incision lines. Open area to the center of the incision line to the anterior tibial region communicating through to the posterior medial calf incision line. Moderate amount of serous drainage observed to dressing. No periwound erythema to the anterior incision line, light periwound erythema to the medial posterior incision line with ecchymosis. Minimal edema. No purulent drainage, no streaking, no odor, no warmth. - Lab Result Diagrams: 11/10/16 06:43 11/10/16 06:43 Labs: Abnormal lab results ESR 64 mm/hr (0-15) H 11/06/16 22:18 Carbon Dioxide 31 mEq/L (19-29) H 11/10/16 06:43 Phosphorus 4.8 mg/dL (2.3-4.7) H 11/10/16 06:43 C-Reactive Protein 172 mg/L (Less than 5) H 11/06/16 22:18 Microbiology, Last 48 Hours 11/07/16 21:59 Gram Stain - Final Right Leg 11/07/16 21:59 Anaerobic Culture - Preliminary Right Leg At this time, no anaerobic growth is present. The culture will be finalized after 5 days of incubation. 11/07/16 21:59 Wound Culture - Final Right Leg No growth. - VTE Documentation of Mechanical Device: Intermittent pneumatic compression device Consult Discharge Plan - Plan Referrals: Piero Mccullough DO [Resident] -
[2016-11-10] MEDS: tiZANidine 4 MG TABLET PO SCH (22:21)
[2016-11-11] MEDS: WATER IVPB SCH ×4 (00:12→20:31)
[2016-11-11] MEDS: SULFAMETHOXAZOLE IVPB SCH ×4 (00:12→20:31)
[2016-11-11] MEDS: TRIMETH IVPB SCH ×4 (00:12→20:31)
[2016-11-11] MEDS: D5 IVPB SCH ×4 (00:12→20:31)
[2016-11-11] MEDS: *HR* HYDROmorphone (PF) 1 MG/ML SYRINGE IVP PRN ×4 (04:33→19:45)
[2016-11-11] MEDS: *HR* Enoxaparin 40 MG/0.4 ML SYRINGE SQ SCH (04:37)
[2016-11-11 07:42] LABS: Basophils # 0.1 K/mcL (0.0-0.2); Basophils % 0.7 %; Eosinophils # 0.4 K/mcL (0.0-0.6); Hematocrit 38.9 % (35.3-44.9); Immature Granulocytes % 0.4 % (0-4); Lymphocytes # 3.3 K/mcL (0.6-4.6); Lymphocytes % 47.3 %; Mean Corpuscular HGB Conc 33.4 g/dL (31.6-35.5); Mean Corpuscular Hemoglobin 30.5 pg (28.0-33.3); Mean Corpuscular Volume 91.3 fL (83.0-100.0); Mean Platelet Volume 10.3 fL (9.4-12.4); Monocytes # 0.4 K/mcL (0.0-1.3); Neutrophils # 2.7 K/mcL (1.6-8.9); Nucleated Red Blood Cells 0.3 /100 WBC (0); Platelet Count 328 K/mcL (140-400); Red Blood Count 4.26 M/mcL (3.82-4.97); Red Cell Distribution Width 12.8 % (11.5-14.5); Segmented Neutrophils % 39.6 %
[2016-11-11] MEDS: Gabapentin 400 MG CAPSULE PO SCH ×4 (08:35→22:59)
[2016-11-11] MEDS: Sennosides/Docusate Sodium TABLET PO SCH ×2 (08:36→22:59)
[2016-11-11] MEDS: Topiramate 25 MG TABLET PO SCH ×2 (08:36→22:58)
[2016-11-11] MEDS: *HR* OxyCODONE/APAP 10/325 TABLET PO PRN ×4 (08:36→23:07)
[2016-11-11] MEDS: Nicotine 21 MG PATCH.TD24 TD SCH (08:37)
--- NOTE | 2016-11-11 09:41 | Infectious Disease Progress No ---
Date of Encounter: 11/11/16 Time of Encounter: 09:13 - Assessment and Plan (1) Cellulitis, leg Current Visit: Yes Status: Acute Location: Lower right leg Causative organism Stenotrophomonas maltophilia per swab culture. Intra- operative culture remains negative. Secondary to penetrating trauma sustained prior to admission. Tib/Fib x-ray completed 11/07/16 showed soft tissue swelling with soft tissue gas along the anteromedial aspect of the right lower leg consistent with history of penetrating trauma. Initial ESR 64, CRP 172. Podiatry was consulted and took the patient to the OR 11/07/16 for right leg I & D. Operative report reviewed. The wound did not penetrate the fascia, but there was a good amount of purulent drainage noted. Clinically, the patient is improved. She had no SIRS criteria. Blood cultures drawn 11/06/16 are NGTD x 2 sets. Discontinue Vanc and Zosyn. Start Bactrim 5mg/kg IV Q8H. Susceptibility report also shows sensitivity to Levaquin, but there is a high rate of resistance development with the use of levaquin. Duration of treatment depends on the clinical picture. Given that the patient has right knee hardware, we will need to aggressive with antibiotic therapy to prevent further infection that may compromise her hardware. We will likely do two weeks of IV antibiotics before we transition to orals, assuming the patient continues to improve clinically. Consult VAT for EPIV placement. Monitor renal function and for drug toxicity and dose-adjust antibiotics. Continue wound care and activity restrictions as outlined by the podiatry team. Consult social media director for discharge planning. Qualifiers: Laterality: right Qualified Code(s): L03.115 - Cellulitis of right lower limb (2) Abscess of right lower extremity Current Visit: Yes Status: Acute Secondary to penetrating trauma. Causative organism unclear. Failed outpatient oral antibiotics (Keflex). Status post right LE I & D 11/07/[address] Funes. Continue antibiotics as above. (3) Puncture wound of leg not thigh, right Current Visit: Yes Status: Acute Patient reports a piece of metal rebar penetrated about 6 inches into her leg. Tdap updated in the ED last week. Qualifiers: Encounter type: sequela Qualified Code(s): S81.831S - Puncture wound without foreign body, right lower leg, sequela (4) History of total right knee replacement Current Visit: Yes Status: Acute Patient reports a history of TKR 3 years ago. We will need to be aggressive in treating this infection to prevent seeding of the knee. - Subjective Interval history: Patient seen and examined. No acute events noted overnight. Patient resting quietly in bed with family at bedside. States her leg pain is better, but the swelling is worse today. Denies fevers or chills or rigors. Denies chest pain, shortness of breath, or cough. Complains of nausea, but this is improved after receiving phenergan earlier. Denies abdominal pain or urinary complaints. Denies diarrhea, vomiting, or constipation. Denies oral thrush or skin lesions. Infect Dis PN-Objective Data - Labs CBC & Chem 7: 11/11/16 04:25 11/10/16 06:43 Labs: Laboratory Results - last 24 hr 11/10/16 11/11/16 11/11/16 11:35 04:25 04:25 WBC 6.9 RBC 4.26 Hgb 13.0 Hct 38.9 MCV 91.3 MCH 30.5 MCHC 33.4 RDW 12.8 Plt Count 328 MPV 10.3 Immature Gran % 0.4 Seg Neutrophils % 39.6 Lymphocytes % 47.3 Monocytes % 6.0 Eosinophils % 6.0 Basophils % 0.7 Neutrophils # 2.7 Lymphocytes # 3.3 Monocytes # 0.4 Eosinophils # 0.4 Basophils # 0.1 Nucleated RBCs/100 WBC 0.3 H Vancomycin Trough 16.9 Specimen Rejected Miscellaneous Cultures: Cultures 11/07/16 21:59 Gram Stain - Final Right Leg 11/07/16 21:59 Anaerobic Culture - Preliminary Right Leg At this time, no anaerobic growth is present. The culture will be finalized after 5 days of incubation. 11/07/16 21:59 Wound Culture - Final Right Leg No growth. Exam - Constitutional Vitals: Temp Pulse Resp BP Pulse Ox 98.0 F 63 14 106/70 96 11/11/16 06:57 11/11/16 06:57 11/11/16 06:57 11/11/16 06:57 11/11/16 06:57 - VTE Documentation of Mechanical Device: Intermittent pneumatic compression device Consult Discharge Plan - Plan Referrals: Piero Mccullough DO [Resident] - Prescriptions: Sulfamethoxazole/Trimeth [Bactrim 800MG/160MG/10ML] 528 mg IV Q8H #14 vial
[2016-11-11] MEDS: *HR* Promethazine 25 MG/ML VIAL IVP PRN ×3 (12:31→19:38)
--- NOTE | 2016-11-11 13:01 | Podiatry Progress Note ---
Date of Encounter: 11/11/16 Time of Encounter: 12:10 - Assessment and Plan (1) Cellulitis, leg Current Visit: Yes Status: Acute Qualifiers: Laterality: right Qualified Code(s): L03.115 - Cellulitis of right lower limb (2) Traumatic open wound of lower leg with infection Current Visit: Yes Status: Acute Post op day #4. Incision line inspected, maxsorb dressing removed with out difficulty. Overall significant improvement. No purulent drainage, no odor, no warmth. The anterior incision line is free from erythema, surrounding skin is pink, warm and dry. There is light periwound erythema to the posterior medial calf incision line with ecchymosis, no streaking. No fluctuance. Blood cultures from 11/06/16: NGTD Wound cultures, intraop: no pathogens isolated. Wound culture isolated Stenotrophomonas maltophilia. No soft tissue gas seen on post op xray of right leg. Wound irrigated with saline. Maxsorb applied to the anterior incision line and 4x4 dry sterile gauze applied to the posterior medial calf incision line with 4x4 dry sterile gauze, kerlix and megan wrap. Dressing will remain intact until tomorrow. Clinically the patients condition has improved, no further surgery will be needed at this time. Dressing can be changed every other day and will continue this at home. Weightbearing as tolerated with crutches. We will continue to monitor patient closely. Infectious disease managing antibiotic therapy. Patient will be discharged on two weeks of IV Bactrim. From a Podiatry standpoint patient okay to be discharged. Continue dressing changes every other day, irrigate wound with saline, pat dry, apply Maxsorb to the anterior incision line with 4x4 dry sterile gauze on top and to the posterior medial calf incision line, with kerlix from toes to tibia and megan wrap from toes to tibia. Patient will need to f/u with Dr. Funes in Podiatry clinic one to two weeks after discharge from the hospital. Qualifiers: Encounter type: initial encounter Laterality: right Qualified Code(s): S81.801A - Unspecified open wound, right lower leg, initial encounter; L08.9 - Local infection of the skin and subcutaneous tissue, unspecified Subjective Interval history: Patient is status post I&D of the right leg by Dr. Funes on 11/07/2016. Patient is lying in bed with dressing intact to the right lower extremity. Patient states right lower extremity pain is better today. States she is going home today. No complaints of fever or chills overnight. Patient states she is comfortable with changing her dressings at home. She states she has already done it. Objective - Vital Signs Vital Signs: Vital Signs Temp Pulse Resp BP Pulse Ox 11/11/16 10:31 98.7 F 69 14 103/67 96 11/11/16 06:57 98.0 F 63 14 106/70 96 11/11/16 04:09 97.7 F 61 18 123/82 98 11/11/16 00:25 99.0 F 65 14 114/65 94 11/10/16 20:03 98.6 F 71 14 127/74 95 11/10/16 14:50 98.7 F 67 14 122/65 95 Intake and Output 11/10/16 11/11/16 11/11/16 23:59 07:59 15:59 Intake Total 773 / 773 773 / 773 240 / 240 Output Total 0 / 0 0 / 0 Balance 773 / 773 773 / 773 240 / 240 Intake: IV Fluids 533 / 533 533 / 533 Bactrim 800MG/160MG/10ML 533 / 533 533 / 533 33 ML In Dextrose 5% 500 ML @ 250 mls/hr IVPB Q8HR [facility] Rx#:[id number] Oral 240 / 240 240 / 240 240 / 240 Output: Urine 0 / 0 0 / 0 Other: Meal Dinner Breakfast Percent of Meal Consumed 50% 100% # Voids 1 - Exam Exam: General appearance: alert awake oriented X 3. Calm and pleasant, no acute distress.. Vascular: Right foot: Pedal pulses +2/4 DP/PT , No evidence of cyanosis, pallor or rubor, Edema graded at 1+/4, Skin Temperature warm, No calf pain with manual compression. capillary refill time is immediate to digits. Neurologic: Sensation intact with light touch to right foot. . Postop Exam: S/P Sutures intact to both incision lines. Open area to the center of the incision line to the anterior tibial region communicating through to the posterior medial calf incision line. Small amount of serous drainage observed to dressing. Dressing changed earlier this morning. No periwound erythema to the anterior incision line, light periwound erythema to the medial posterior incision line with ecchymosis. Minimal edema. No purulent drainage, no streaking, no odor, no warmth. - Lab Result Diagrams: 11/11/16 04:25 11/10/16 06:43 Labs: Abnormal lab results Nucleated RBCs/100 WBC 0.3 /100 WBC (0) H 11/11/16 04:25 ESR 64 mm/hr (0-15) H 11/06/16 22:18 Carbon Dioxide 31 mEq/L (19-29) H 11/10/16 06:43 Phosphorus 4.8 mg/dL (2.3-4.7) H 11/10/16 06:43 C-Reactive Protein 172 mg/L (Less than 5) H 11/06/16 22:18 Microbiology, Last 48 Hours 11/07/16 21:59 Gram Stain - Final Right Leg 11/07/16 21:59 Anaerobic Culture - Preliminary Right Leg At this time, no anaerobic growth is present. The culture will be finalized after 5 days of incubation. 11/07/16 21:59 Wound Culture - Final Right Leg No growth. - VTE Documentation of Mechanical Device: Intermittent pneumatic compression device Consult Discharge Plan - Plan Additional Instructions: Please follow up with your primary care physician and infectious disease specialist within one week after your discharge from the hospital. Please follow up with podiatry within two weeks after your discharge from the hospital. Wound care as per podiatry: Continue dressing changes every other day, irrigate wound with saline, pat dry, apply Maxsorb to the anterior incision line with 4x4 dry sterile gauze on top and to the posterior medial calf incision line, with kerlix from toes to tibia and megan wrap from toes to tibia. weightbearing as tolerated with crutches. Continue IV abx as prescribed. Resume home medications as prescribed by your primary care physician. Referrals: Hector Funes DPM [Partnered Physician] - (OFFICE WILL CALL WITH APPOINTMENT TIME. ) Piero Mccullough DO [Resident] - Yeimy Moody, BONNIE [Advanced Practice Nurse] - 11/24/16 9:30 am Prescriptions: OxyCODONE/APAP 10/325 [Percocet 10/325 MG] 1 each PO Q6H PRN #20 tab PRN Reason: Severe Pain Sennosides/Docusate Sodium [Senna Plus] 2 each PO BID PRN #30 PRN Reason: Constipation Sulfamethoxazole/Trimeth [Bactrim 800MG/160MG/10ML] 528 mg IV Q8H #14 vial
--- NOTE | 2016-11-11 14:17 | Discharge Summary ---
Date of Encounter: 11/11/16 Time of Encounter: 14:14 - Discharge Diagnosis (1) Traumatic open wound of lower leg with infection Priority: Primary Status: Acute Qualifiers: Encounter type: initial encounter Laterality: right Qualified Code(s): S81.801A - Unspecified open wound, right lower leg, initial encounter; L08.9 - Local infection of the skin and subcutaneous tissue, unspecified (2) Anxiety and depression Priority: Secondary Status: Chronic (3) DVT prophylaxis Priority: Secondary Status: Acute (4) Tobacco abuse Priority: Secondary Status: Chronic - Discharge Medications Prescriptions: OxyCODONE/APAP 10/325 [Percocet 10/325 MG] 1 each PO Q6H PRN #20 tab PRN Reason: Severe Pain Sennosides/Docusate Sodium [Senna Plus] 2 each PO BID PRN #30 PRN Reason: Constipation Sulfamethoxazole/Trimeth [Bactrim 800MG/160MG/10ML] 528 mg IV Q8H #14 vial Home Medications: Escitalopram [Lexapro] 20 mg PO DAILY 05/11/15 [History] Gabapentin [Neurontin] 800 mg PO QID 05/11/15 [History] Losartan/HCTZ [Hyzaar 50-12.5 Tablet] 1 tab PO BID 05/11/15 [History] amLODIPine [Norvasc] 10 mg PO DAILY 05/11/15 [History] Buspirone HCl [Buspar] 7.5 mg PO BID 08/06/16 [History] HYDROcodone/Acet 5/325 mg [[place] 5-325 mg] 1 tab PO Q4H PRN #10 tab 09/02/16 [Rx ] OxyCODONE/APAP 10/325 [Percocet 10/325 MG] 1 each PO Q6H PRN #20 tab 11/11/16 [ Rx] Sennosides/Docusate Sodium [Senna Plus] 2 each PO BID PRN #30 11/11/16 [Rx] Sulfamethoxazole/Trimeth [Bactrim 800MG/160MG/10ML] 528 mg IV Q8H #14 vial 11/11 [Rx] Allergies/Adverse Reactions: 3 Allergy/AdvReac Type Severity Reaction Status Date / Time Iodinated Contrast- Oral and Allergy Hives Verified 11/06/16 21:11 IV Dye Date of admission: 11/06/16 23:25 Primary care physician: PCP NONE Consults: 11/08/16 15:26 Consult to Infectious Diseases [CONS] Routine Consulting Provider: Infectious Disease [facility] Reason for Consult: cellulitis RLE, abscess Time Notified: 03:25 Call Completed: Yes 11/09/16 11:55 Consult to Occupational Therapy [CONS] Routine Comment: Evaluate, develop and implement POC Reason for Consult: Post Op Consult to Physical Therapy [CONS] Routine Comment: Evaluate, develop and implement POC Reason for Consult: Post Op 11/10/16 13:58 Consult to Invasive Line Access Team [CONS] Routine Reason for Consult: EPIV Line Type: EPIV PICC line indications: intermediate manager Med/Antibiotic Time Notified: 13:58 Call Completed: Yes Discharging clinician: Andra Rosen Anticipated date of discharge: 11/11/16 - Patient Status Disposition: Home Health Service Condition: Good Functional capacity at discharge: uses cane/walker Overall status at discharge: patient is progressing back to baseline - Discharge Instructions Follow Up With: Piero Mccullough DO [Resident] - Additional Instructions: Please follow up with your primary care physician and infectious disease specialist within one week after your discharge from the hospital. Please follow up with podiatry within two weeks after your discharge from the hospital. Wound care as per podiatry: Continue dressing changes every other day, irrigate wound with saline, pat dry, apply Maxsorb to the anterior incision line with 4x4 dry sterile gauze on top and to the posterior medial calf incision line, with kerlix from toes to tibia and megan wrap from toes to tibia. weightbearing as tolerated with crutches. Continue IV abx as prescribed. Resume home medications as prescribed by your primary care physician. - Diet and Activity Activity: as per physical therapy Diet: low fat, low cholesterol, low salt diet Hospital course: Ms. Solis is a 46 year old female with PMH Of HTN, HLD, obesity, arthritis who was admitted for sepsis secondary to infected traumatic right leg wound. She was followed by podiatry and underwent incision and drainage of right leg. Her wound care was continued by podiatry and infectious disease was consulted for detention abx therapy. Pt is hemodynamically stable and will be discharged to home with IV abx. Pt states her daughters and will be able to help her with the IV abx at home in addition to the home health services. Patient demonstrates understanding of her diagnosis and agrees with the discharge care and plan. - Time Spent with Patient Total time spent providing and/or coordinating discharge services: Greater than 30 minutes - Constitutional Vitals: Temp Pulse Resp BP Pulse Ox 98.7 F 69 14 103/67 96 11/11/16 10:31 11/11/16 10:31 11/11/16 10:31 11/11/16 10:31 11/11/16 10:31 General appearance: Present: A&O X 3, no acute distress, obese - Head Head exam: Present: atraumatic, normocephalic - Eye Eye exam: Present: conjuntiva pink, sclera anicteric - Respiratory Respiratory exam: Present: CTAB. Absent: accessory muscle use, rales, rhonchi, wheezes - Cardiovascular Cardiovascular exam: Present: RRR, +S1, +S2. Absent: diastolic murmur, gallop, rubs, systolic murmur - GI/Abdominal GI/Abdominal exam: Present: normal bowel sounds, soft, no peritoneal signs. Absent: distended, tenderness - Extremities Exam Extremities exam: Present: warm, radial pulses palpable and symmetrical (RLE wrapped in dressing) - Neurological Exam Neurological exam: Present: alert, oriented X3 - Psychiatric Psychiatric exam: Present: normal affect, normal mood - VTE Documentation of Mechanical Device: Intermittent pneumatic compression device
--- NOTE | 2016-11-11 14:18 | Infectious Disease Progress No ---
Date of Encounter: 11/11/16 Time of Encounter: 14:15 - Assessment and Plan (1) Cellulitis, leg Current Visit: Yes Status: Acute Location: Lower right leg Causative organism Stenotrophomonas maltophilia per swab culture. Intra- operative culture remains negative. Secondary to penetrating trauma sustained prior to admission. Tib/Fib x-ray completed 11/07/16 showed soft tissue swelling with soft tissue gas along the anteromedial aspect of the right lower leg consistent with history of penetrating trauma. Initial ESR 64, CRP 172. Podiatry was consulted and took the patient to the OR 11/07/16 for right leg I & D. Operative report reviewed. The wound did not penetrate the fascia, but there was a good amount of purulent drainage noted. Clinically, the patient is improved. She had no SIRS criteria. Blood cultures drawn 11/06/16 are NGTD x 2 sets. Discontinue Vanc and Zosyn. Start Bactrim 5mg/kg IV Q8H. Susceptibility report also shows sensitivity to Levaquin, but there is a high rate of resistance development with the use of levaquin. Duration of treatment depends on the clinical picture. Given that the patient has right knee hardware, we will need to aggressive with antibiotic therapy to prevent further infection that may compromise her hardware. We will likely do two weeks of IV antibiotics before we transition to orals, assuming the patient continues to improve clinically. EPIV placed 11/10/16. Will need to switch it out for a PICC line before discharge due to the pH of IV Bactrim. Monitor renal function and for drug toxicity and dose-adjust antibiotics. Continue wound care and activity restrictions as outlined by the podiatry team. assurance services manager health care consulted to assist with discharge planning. Get weekly CBC, BUN/Cr, ESR, and CRP every Tuesday for the duration of treatment. Weekly PICC care. Follow up with ID 11/24/16 at 0930. Qualifiers: Qualified Code(s): L03.115 - Cellulitis of right lower limb (2) Abscess of right lower extremity Current Visit: Yes Status: Acute Secondary to penetrating trauma. Causative organism unclear. Failed outpatient oral antibiotics (Keflex). Status post right LE I & D 11/07/[address] Funes. Continue antibiotics as above. (3) Puncture wound of leg not thigh, right Current Visit: Yes Status: Acute Patient reports a piece of metal rebar penetrated about 6 inches into her leg. Tdap updated in the ED last week. Qualifiers: Qualified Code(s): S81.831S - Puncture wound without foreign body, right lower leg, sequela (4) History of total right knee replacement Current Visit: Yes Status: Acute Patient reports a history of TKR 3 years ago. We will need to be aggressive in treating this infection to prevent seeding of the knee. - Subjective Interval history: Patient seen and examined. No acute events noted overnight. Patient resting quietly in bed with family at bedside. States her leg pain and swelling are better. Denies fevers or chills or rigors. Denies chest pain, shortness of breath, or cough. Denies nausea, vomiting, or constipation. States her stool is a little loose from the laxatives she was given two days ago. Denies abdominal pain or urinary complaints. Denies oral thrush or skin lesions. Infect Dis PN-Objective Data - Labs CBC & Chem 7: 11/11/16 04:25 11/10/16 06:43 Labs: Laboratory Results - last 24 hr 11/11/16 11/11/16 04:25 04:25 WBC 6.9 RBC 4.26 Hgb 13.0 Hct 38.9 MCV 91.3 MCH 30.5 MCHC 33.4 RDW 12.8 Plt Count 328 MPV 10.3 Immature Gran % 0.4 Seg Neutrophils % 39.6 Lymphocytes % 47.3 Monocytes % 6.0 Eosinophils % 6.0 Basophils % 0.7 Neutrophils # 2.7 Lymphocytes # 3.3 Monocytes # 0.4 Eosinophils # 0.4 Basophils # 0.1 Nucleated RBCs/100 WBC 0.3 H Specimen Rejected Miscellaneous Cultures: Cultures 11/07/16 21:59 Gram Stain - Final Right Leg 11/07/16 21:59 Anaerobic Culture - Preliminary Right Leg At this time, no anaerobic growth is present. The culture will be finalized after 5 days of incubation. 11/07/16 21:59 Wound Culture - Final Right Leg No growth. Exam - Constitutional Vitals: Temp Pulse Resp BP Pulse Ox 98.7 F 69 14 103/67 96 11/11/16 10:31 11/11/16 10:31 11/11/16 10:31 11/11/16 10:31 11/11/16 10:31 General appearance: cooperative, no acute distress, obese - Head Head exam: Present: atraumatic, normal inspection, normocephalic - Eye Eye exam: Present: EOMI, normal appearance, PERRL Pupils: Present: normal accommodation - ENT ENT exam: Present: mucous membranes moist - Neck Neck exam: Present: normal inspection - Respiratory Respiratory exam: Present: CTAB. Absent: rales, respiratory distress, rhonchi, wheezes - Cardiovascular Cardiovascular exam: Present: RRR, +S1, +S2 - GI/Abdominal GI/Abdominal exam: Present: distended (obese), normal bowel sounds, soft. Absent: tenderness - Expanded Lower Extremity Exam 1 - Surgical incision with ~ 1cm area in the middle of the incision open with Maxorb dressing noted. Otherwise, sutures intact. Scant serosanguinous drainage noted on the old dressing. No active drainage. No erythema or warmth. Mild tenderness. 2 - Posterior surgical incision with sutures intact. Wound edges well- approximated. No active drainage, warmth, erythema noted. - Neurological Exam Neurological exam: Present: alert, oriented X3, no focal deficits - Psychiatric Psychiatric exam: Present: normal affect, normal mood - Skin Skin exam: Present: dry, intact, normal color, warm - VTE Documentation of Mechanical Device: Intermittent pneumatic compression device Consult Discharge Plan - Plan Referrals: Piero Mccullough DO [Resident] - Yeimy Moody, GROUP WORK PROGRAM DIRECTOR [Advanced Practice Nurse] - 11/24/16 9:30 am Prescriptions: Sulfamethoxazole/Trimeth [Bactrim 800MG/160MG/10ML] 528 mg IV Q8H #14 vial
--- NOTE | 2016-11-11 14:25 | Physician Discharge Referral ---
Home Health/Hosp Referral Info Transfer to: Home Health Provider in Charge Post Discharge: PCP - Diagnosis (1) Traumatic open wound of lower leg with infection Priority: Primary Status: Acute (2) Anxiety and depression Priority: Secondary Status: Chronic (3) DVT prophylaxis Priority: Secondary Status: Acute (4) Tobacco abuse Priority: Secondary Status: Chronic - Respiratory Orders Smoking Cessation: Smoking cessation has been advised. For more information, call the [place] Tobacco Quit Line at 2-292-DWAG-NOW. - Services Needed Following services are medically necessary services: Nursing, Home Health Aide, Physical Therapy, Occupational Therapy, Home Infusion - Transfer Medications Prescriptions: OxyCODONE/APAP 10/325 [Percocet 10/325 MG] 1 each PO Q6H PRN #20 tab PRN Reason: Severe Pain Sennosides/Docusate Sodium [Senna Plus] 2 each PO BID PRN #30 PRN Reason: Constipation Sulfamethoxazole/Trimeth [Bactrim 800MG/160MG/10ML] 528 mg IV Q8H #14 vial Home Medications: Escitalopram [Lexapro] 20 mg PO DAILY 05/11/15 [History] Gabapentin [Neurontin] 800 mg PO QID 05/11/15 [History] Losartan/HCTZ [Hyzaar 50-12.5 Tablet] 1 tab PO BID 05/11/15 [History] amLODIPine [Norvasc] 10 mg PO DAILY 05/11/15 [History] Buspirone HCl [Buspar] 7.5 mg PO BID 08/06/16 [History] HYDROcodone/Acet 5/325 mg [[place] 5-325 mg] 1 tab PO Q4H PRN #10 tab 09/02/16 [Rx ] OxyCODONE/APAP 10/325 [Percocet 10/325 MG] 1 each PO Q6H PRN #20 tab 11/11/16 [ Rx] Sennosides/Docusate Sodium [Senna Plus] 2 each PO BID PRN #30 11/11/16 [Rx] Sulfamethoxazole/Trimeth [Bactrim 800MG/160MG/10ML] 528 mg IV Q8H #14 vial 11/11 [Rx] Allergies/Adverse Reactions: 3 Allergy/AdvReac Type Severity Reaction Status Date / Time Iodinated Contrast- Oral and Allergy Hives Verified 11/06/16 21:11 IV Dye Certification: Further, I certify that my clinical findings support that this patient is homebound (i.e. absences from home require considerable and taxing effort and are for medical reasons or druze services or infrequently or short duration when for other reasons) because: Homebound Reason: Patient requires assistance of a person or device to safely leave home Attestation: My signature below is to certify that this patient is under my care and that I, or nurse practitioner, or a physician's advertising sales assistant working with me, has a face-to -face encounter with this patient.
[2016-11-11 19:21] VITALS: BP 119/78
[2016-11-11] MEDS: tiZANidine 4 MG TABLET PO SCH (22:59)
[2016-11-11] MEDS ORDERED: Aminoglycoside Consult 1 EACH MC ONE (23:31)
== END 2016-11-11 23:32 | disposition home health service (06) | DRG 871 ==
LOC: 3ANU 20:58 → EMEROO 20:58 → SUATTDRO 23:25 → 3ANU 23:47
PROVIDERS: ADMIT Hospitalist; ATTEND Internal Medicine

== ENCOUNTER 2018-06-01 19:45 | Observation (INO) ==
[2018-06-01 22:33] LABS: Hemoglobin 18.5 g/dL (11.5-15.4); Mean Corpuscular HGB Conc 34.9 g/dL (31.6-35.5); Mean Corpuscular Hemoglobin 29.8 pg (28.0-33.3); Mean Corpuscular Volume 85.5 fL (83.0-100.0); Mean Platelet Volume 9.9 fL (9.4-12.4); Platelet Count 351 K/mcL (140-400)
[2018-06-01] MEDS ORDERED: Ondansetron 4 MG/2 ML VIAL IVP ONE (22:45)
[2018-06-01] MEDS ORDERED: 0.9 % Sodium Chloride 1,000 ML IVC ONE ×2 (22:45→23:38)
--- NOTE | 2018-06-01 22:48 | Emergency Department Note ---
Disposition Clinical Impression: Nausea vomiting and diarrhea, ANA (acute kidney injury) Disposition: Admitted As Inpatient Condition: Undetermined Time of Disposition: 01:51 Nausea/Vomiting/Diarrhea HPI - General Chief complaint: ED Nausea/Vomiting/Diarrhea Stated complaint: N/V/D Time Seen by Provider: 06/01/18 20:57 Source: patient, family Mode of arrival: ambulatory Limitations: no limitations Nursing Notes Reviewed: Yes Vital Signs Reviewed: Yes - History of Present Illness HPI Narrative: 48-year-old female with history of chronic pain on gabapentin as well as Seroquel arrives to the emergency Department roughly 2 days of nausea, vomiting, diarrhea unable to keep anything down. Family notes that the patient has been not acting right all day. She is lucid and answering questions appropriately in the room but she appears very dehydrated. She is not tachycardic however mucous membranes are very dry on evaluation. The patient has no associated abdominal pain, no melena, no hematochezia. She denies any chest pain or difficulty breathing. She denies any headache, neck pain, fevers, chills. - Related Data Home Medications Medication Instructions Recorded Confirmed RX: Gabapentin [Neurontin] 800 mg PO QID 05/11/15 06/02/18 Amitriptyline 15 mg PO DAILY 06/02/18 06/02/18 Orphenadrine [Norflex] 100 mg PO BID 06/02/18 06/02/18 Quetiapine Fumarate [Seroquel] 25 mg PO HS 06/02/18 06/02/18 RX: Cyclobenzaprine [Flexeril] 10 mg PO HS 06/02/18 06/02/18 Zolpidem [Ambien] 10 mg PO HS 06/02/18 06/02/18 Allergies Allergy/AdvReac Type Severity Reaction Status Date / Time Iodinated Contrast- Oral and Allergy Hives Verified 06/01/18 19:59 IV Dye All systems ED: reviewed and negative except as stated. Constitutional: Reports: weakness. Denies: fever, chills ENT ED: Denies: dysphagia Cardiovascular: Denies: chest pain Respiratory: Denies: dyspnea Gastrointestinal: Reports: nausea, vomiting, diarrhea. Denies: abdominal pain, constipation, hematemesis, melena, hematochezia Genitourinary: Denies: urgency, dysuria, frequency Musculoskeletal: Denies: back pain, neck pain Integumentary: Denies: rash Neurological: Denies: headache Past Medical History - Past Medical History Attestation: Yes The following information was validated with the patient. Source: patient, old records reviewed Medical history: Reports: arthritis, hyperlipidemia, hypertension, other Surgical history: Reports: cholecystectomy, hysterectomy, knee replacement (Right total knee replacement 2013) Psychiatric history: Reports: anxiety, depression INVOICING SPECIALIST history: Reports: no INVOICING SPECIALIST history - Social History Smoking Status: Former smoker Smokeless Tobacco Status: No Alcohol use: Reports: none Drug use: Reports: none Physical Exam - General Limitations: no limitations General appearance: alert, in no apparent distress - Head Head exam: atraumatic, normocephalic, normal inspection - Eye Eye exam: Present: normal appearance, PERRL, EOMI - ENT ENT exam: normal exam, normal oropharynx, mucous membranes dry - Neck Neck exam: Present: normal inspection, full ROM, trachea midline - Chest Chest inspection: Present: normal inspection, symmetric chest wall rise - Respiratory Respiratory exam: Present: normal lung sounds bilaterally - Cardiovascular Cardiovascular exam: Present: regular rate, normal rhythm, normal heart sounds - Abdominal Exam Abdominal exam: Present: soft, Non-Tender. Absent: tenderness, distention, guarding, rebound, rigidity, Acosta's sign, Rovsing's sign, tenderness at McBurney's Point - Extremities Exam Extremities exam: Present: normal inspection, full ROM, normal capillary refill. Absent: tenderness, pedal edema - Neurological Exam Neurological exam: Present: alert, oriented X3 - Skin Skin exam: Present: warm, dry, intact, normal color Course Vital Signs Temperature 97.8 F 06/01/18 20:01 Pulse Rate 91 06/01/18 20:01 Respiratory Rate 20 06/01/18 20:01 Blood Pressure 119/86 06/01/18 20:01 O2 Sat by Pulse Oximetry 94 06/01/18 20:01 Temperature 97.8 F 06/01/18 20:01 Pulse Rate 96 06/02/18 00:00 Respiratory Rate 20 06/02/18 00:00 Blood Pressure 109/84 06/02/18 00:00 O2 Sat by Pulse Oximetry 99 06/02/18 00:05 Oxygen Delivery Oxygen Delivery Room Air Nausea/Vomiting/Diarrhea - MDM Narrative Medical decision making narrative: Given the patient's acute kidney injury. We will admit the patient to the hospital at this time. The patient does not take chronic steroids. She denies any acute process. She has been lucid and answering questions here in the emergency department. She denies any other complaint at this time. The patient was given 2 L IV fluids and Zofran. Nausea is well controlled with the patient continues to have diarrhea. I am not concerned about infectious etiology of the patient's diarrhea at least from a clostridium deficit point. Patient denies any recent antibiotics or any other with similar complaints other than intermittent episodes of nausea and vomiting. - Lab Data Lab results reviewed: Yes I reviewed the patient's lab results. Result diagrams: 06/01/18 22:20 06/01/18 22:20 Lab Results 06/01/18 06/01/18 06/02/18 Range/Units 22:20 22:20 00:50 WBC 6.8 (4.3-11.1) K/mcL RBC 6.20 H (3.82-4.97) M/mcL Hgb 18.5 H (11.5-15.4) g/dL Hct 53.0 H (35.3-44.9) % MCV 85.5 (83.0-100.0) fL MCH 29.8 (28.0-33.3) pg MCHC 34.9 (31.6-35.5) g/dL RDW 14.0 (11.5-14.5) % Plt Count 351 (140-400) K/mcL MPV 9.9 (9.4-12.4) fL Sodium 134 L (136-145) mEq/L Potassium 3.3 L (3.5-5.1) mEq/L Chloride 104 (98-107) mEq/L Carbon Dioxide 15 L (23-29) mEq/L BUN 33 H (6-20) mg/dL Creatinine 1.43 H (0.60-1.20) mg/dL Est GFR ( Amer) 48 L (> 60) Est GFR (Non-Af Amer) 39 L (> 60) BUN/Creatinine Ratio 23 (6-26) Glucose 156 H (70-105) mg/dL Calculated Osmolality 288 (280-300) Calcium 10.1 (8.6-10.3) mg/dL Urine Color Yellow (Yellow) Urine Clarity Cloudy A (Clear) Urine pH 5.5 (5.0-8.0) pH Units Ur Specific [place] 1.028 H (1.010-1.025) Urine Protein 100 H (Neg-Trace) mg/dL Urine Glucose (UA) Normal (Normal) mg/dL Urine Ketones Trace H (Negative) mg/dL Urine Blood Small H (Negative) Urine Nitrite Negative (Negative) Urine Bilirubin Small H (Negative) Urine Urobilinogen Normal (Normal) mg/dL Ur Leukocyte Esterase Negative (Negative) Urine Microscopic RBC 5-15 H (0-3) per hpf Urine Microscopic WBC 5-15 H (0-3) per hpf Ur Squamous Epith Cells Many H (None-Few) per lpf Urine Bacteria None Seen (None-Few) per hpf Hyaline Casts Moderate H (None-Few) per lpf Urine Opiates Screen (Hishhe=986) ng/mL Ur Barbiturates Screen (Yrhilf=278) ng/mL Ur Phencyclidine Scrn (Cutoff=25) ng/mL Ur Amphetamines Screen (Yndqqs=9776) ng/mL U Benzodiazepines Scrn (Jsnzzt=821) ng/mL Urine Cocaine Screen (Cutoff= 300) ng/mL U Marijuana (THC) Screen (Cutoff = 50) ng/mL Ur Drug Screen Interp 06/02/18 Range/Units 00:50 WBC (4.3-11.1) K/mcL RBC (3.82-4.97) M/mcL Hgb (11.5-15.4) g/dL Hct (35.3-44.9) % MCV (83.0-100.0) fL MCH (28.0-33.3) pg MCHC (31.6-35.5) g/dL RDW (11.5-14.5) % Plt Count (140-400) K/mcL MPV (9.4-12.4) fL Sodium (136-145) mEq/L Potassium (3.5-5.1) mEq/L Chloride (98-107) mEq/L Carbon Dioxide (23-29) mEq/L BUN (6-20) mg/dL Creatinine (0.60-1.20) mg/dL Est GFR ( Amer) (> 60) Est GFR (Non-Af Amer) (> 60) BUN/Creatinine Ratio (6-26) Glucose (70-105) mg/dL Calculated Osmolality (280-300) Calcium (8.6-10.3) mg/dL Urine Color (Yellow) Urine Clarity (Clear) Urine pH (5.0-8.0) pH Units Ur Specific [place] (1.010-1.025) Urine Protein (Neg-Trace) mg/dL Urine Glucose (UA) (Normal) mg/dL Urine Ketones (Negative) mg/dL Urine Blood (Negative) Urine Nitrite (Negative) Urine Bilirubin (Negative) Urine Urobilinogen (Normal) mg/dL Ur Leukocyte Esterase (Negative) Urine Microscopic RBC (0-3) per hpf Urine Microscopic WBC (0-3) per hpf Ur Squamous Epith Cells (None-Few) per lpf Urine Bacteria (None-Few) per hpf Hyaline Casts (None-Few) per lpf Urine Opiates Screen Negative (Vapsvf=720) ng/mL Ur Barbiturates Screen Negative (Kxqzof=049) ng/mL Ur Phencyclidine Scrn Negative (Cutoff=25) ng/mL Ur Amphetamines Screen Negative (Vhvxaq=7963) ng/mL U Benzodiazepines Scrn Negative (Medmsh=580) ng/mL Urine Cocaine Screen Negative (Cutoff= 300) ng/mL U Marijuana (THC) Screen Negative (Cutoff = 50) ng/mL Ur Drug Screen Interp See Below Attestation Statement - Attestation Attestation: Dr. Gonsales note: Patient was seen in conjunction with resident Dr. Sam Chaparro, please see his charting for complete documentation. Assessment [id number] time with the patient and agree with patient's treatment and disposition. Blood work reviewe d. Symptoms for 2 days. Others in the home had similar illness. Dehydration and mild acidosis noted. She will require admission for dehydration and IV fluid resuscitation.
[2018-06-01 22:52] LABS: Calcium 10.1 mg/dL (8.6-10.3); Potassium 3.3 mEq/L (3.5-5.1)
[2018-06-02 01:01] LABS: Bilirubin,Urine Small (Negative); Blood,Urine Small (Negative); Clarity,Urine Cloudy (Clear); Color,Urine Yellow (Yellow); Glucose,Urine (UA) Normal (Normal); Ketones,Urine Trace mg/dL (Negative); Leukocyte Esterase,Urine Negative (Negative); Nitrite,Urine Negative (Negative); PH,Urine 5.5 pH Units (5.0-8.0); Protein,Urine 100 mg/dL (Neg-Trace); Specific Gravity,Urine 1.028 (1.010-1.025); Urobilinogen,Urine Normal (Normal)
[2018-06-02 01:02] LABS: Bacteria,Urine None Seen per hpf (None-Few); Squamous Epithelial Cell,Urine Many per lpf (None-Few)
[2018-06-02 01:11] LABS: Amphetamine Screen,Urine Negative ng/mL (Cutoff=1000); Barbiturate Screen,Urine Negative ng/mL (Cutoff=200); Benzodiazepines Screen,Urine Negative ng/mL (Cutoff=200); Cannabinoid Screen,Urine Negative ng/mL (Cutoff = 50); Cocaine Screen,Urine Negative ng/mL (Cutoff= 300); Opiate Screen,Urine Negative ng/mL (Cutoff=300); Phencyclidine Screen,Urine Negative ng/mL (Cutoff=25)
[2018-06-02 01:12] LABS: Hyaline Casts,Urine Moderate per lpf (None-Few)
[2018-06-02] MEDS: 0.9 % Sodium Chloride 1,000 ML IVC SCH ×2 (03:41→10:15)
[2018-06-02] MEDS ORDERED: Ondansetron 4 MG/2 ML VIAL IVP ONE (03:59)
[2018-06-02] MEDS: *HR* Promethazine 25 MG/ML VIAL IVP PRN ×3 (04:44→22:26)
[2018-06-02] MEDS: Acetaminophen 325 MG TABLET PO PRN ×2 (04:44→20:28)
[2018-06-02] MEDS ORDERED: Metoclopramide 10 MG/2 ML VIAL IVP ONE (06:12)
[2018-06-02] MEDS ORDERED: Ondansetron 4 MG/2 ML VIAL IVP PRN (08:38)
[2018-06-02] MEDS ORDERED: Naloxone 0.4 MG/ML INJ IVP PRN (08:38)
--- NOTE | 2018-06-02 08:41 | Internal Med History&Physical ---
<Ab Matos - Last Filed: 06/02/18 09:46> Date of Encounter: 06/02/18 Time of Encounter: 09:46 Internal Medicine - H&P: HPI Chief complaint: Nausea vomiting diarrhea Admitted From: Emergency Dept Plans for Post Hospital Care: Home History of present illness: Ms. Solis is a 48 year old female with history of depression, anxiety presents with chief complaint of nausea vomiting diarrhea that started 2 days ago. Patient reports her whole family has had similar symptoms in the past 2 weeks but for them resolved in 24 hours. She has been having bowel movements every 2-4 hours. She is not tolerating a diet. She denies hematemesis, hematochezia, melena. She reports abdominal pain in bilateral lower quadrants. She reports chills and reports subjective fevers. She denies recent travel. She is unclear about what types of food she ate and may of caused this. Past Med Surg Social Fam HX - Past Medical History Medical history: arthritis, hyperlipidemia, hypertension, other Additional medical history: scoliosis Psychiatric history: anxiety, depression - Past Surgical History Surgical History: cholecystectomy, hysterectomy, knee replacement (Right total knee replacement 2013) Additional surgical history: right knee replacement - Social History Smoking Status: Former smoker Smokeless Tobacco Status: No Alcohol use: none Drug use: none - Family History Mother Adopted: No Living Status: Still Living Hx Family Cardiac Disorders: Yes (Hypertension) Hx Family Respiratory Disorders: No Hx Family Cancer: No Hx Family GI Disorders: No Hx Family Endocrine Disorder: No Hx Family Neuromuscular Disorders: No Hx Family Neurologic Disorders: Yes (Seizure disorder) Hx Family HEENT Disorders: No Hx Family Autoimmune Disorders: No Internal Medicine - H&P: Meds RX: Gabapentin [Neurontin] 800 mg PO QID 05/11/15 [History] Amitriptyline 15 mg PO DAILY 06/02/18 [History] Orphenadrine [Norflex] 100 mg PO BID 06/02/18 [History] Quetiapine Fumarate [Seroquel] 25 mg PO HS 06/02/18 [History] RX: Cyclobenzaprine [Flexeril] 10 mg PO HS 06/02/18 [History] Zolpidem [Ambien] 10 mg PO HS 06/02/18 [History] Allergy/AdvReac Type Severity Reaction Status Date / Time Iodinated Contrast- Oral and Allergy Hives Verified 06/01/18 19:59 IV Dye All Systems PM: A 10-system review of systems was performed and is negative for pertinent findings except as documented above in the HPI. Review of systems: Constitutional: As per history of present illness HEENT: Denies headache, trauma, blurry vision, eye discharge, ear pain, ear discharge neck pain, sore throat, rhinorrhea Heart: Denies chest pain palpitations, LE edema Lungs: Denies shortness of breath cough Abdomen: As per history of present illness MSK: Denies back pain, falls, joint pain Kidney: Denies dysuria, hematuria Skin: Denies rash, ulcers Neuro: Denies numbness and tingling Psych: Reports axniety, depression - Constitutional Vitals: Temp Pulse Resp BP Pulse Ox 98.5 F 86 16 125/66 97 06/02/18 07:00 06/02/18 07:00 06/02/18 07:00 06/02/18 07:00 06/02/18 07:00 Exam: General: pleasant, without distress HEENT: Head atraumatic, normocephalic, EOMI, PERRL, absent ear discharge or trauma, Moist Mucous Membranes, uvula midline Neck: nontender to palpation, absent lymphadenopathy, Cardiovascualr: Regular rate and rhythm with no murmur, absent gallops or rubs, absent pedal edema, radial pulses 2 out of 4 Lungs: Clear to auscultation bilaterally, not in respiratory distress Abdomen: Soft mild tenderness in bilateral lower quadrants nondistended positive bowel sounds, absent hepatomegaly Skin: warm and dry, absent rash, absent open wounds and nodules MSK: absent clubbing, cyanosis, joints without swelling Neuro: Cranial nerves II through XII intact, UE and LE sensation equal bilaterally, UE and LEstrength 5/5, alert oriented 3, Psych: good insight and judgment Internal Med - H&P Results - Labs CBC & Chem 7: 06/01/18 22:20 06/01/18 22:20 Labs: Short CBC 06/01/18 Range/Units 22:20 WBC 6.8 (4.3-11.1) K/mcL Hgb 18.5 H (11.5-15.4) g/dL Hct 53.0 H (35.3-44.9) % Plt Count 351 (140-400) K/mcL BMP 06/01/18 22:20 Sodium 134 L Potassium 3.3 L Chloride 104 Carbon Dioxide 15 L BUN 33 H Creatinine 1.43 H Glucose 156 H Calcium 10.1 Urine 06/02/18 Range/Units 00:50 Urine Color Yellow (Yellow) Urine Clarity Cloudy A (Clear) Urine pH 5.5 (5.0-8.0) pH Units Ur Specific [place] 1.028 H (1.010-1.025) Urine Protein 100 H (Neg-Trace) mg/dL Urine Glucose (UA) Normal (Normal) mg/dL - Assessment and Plan (1) Gastroenteritis Current Visit: Yes Status: Acute Assessment and plan: Patient likely has gastroenteritis based on her symptoms and presentation We will continue IV fluids, antiemetics and obtain a stool panel We will start patient on clear liquid diet. (2) DVT prophylaxis Current Visit: Yes Status: Acute Assessment and plan: Heparin subcutaneous. (3) ANA (acute kidney injury) Current Visit: Yes Status: Acute Assessment and plan: Prerenal in etiology Continue IV fluids Repeat BMP. (4) Anxiety and depression Current Visit: Yes Status: Chronic Assessment and plan: Patient history of anxiety and depression We will continue home medications of Seroquel, - Time Spent With Patient Total time spent is greater than 50% in coordination of care (as documented) at patient's floor/unit and/or counseling patient: <Gaby Erickson - Last Filed: 06/03/18 04:25> Date of Encounter: 06/02/18 Internal Medicine - H&P: HPI History of present illness: Ms. Solis is a 48 year old female All Systems PM: A 10-system review of systems was performed and is negative for pertinent findings except as documented above in the HPI. - Constitutional Vitals: Temp Pulse Resp BP Pulse Ox 98.2 F 80 16 116/69 95 06/03/18 02:41 06/03/18 02:41 06/03/18 02:41 06/03/18 02:41 06/03/18 02:41 Internal Med - H&P Results - Labs CBC & Chem 7: 06/02/18 09:17 06/02/18 09:17 Labs: Short CBC 06/02/18 Range/Units 09:17 WBC 5.3 (4.3-11.1) K/mcL Hgb 15.4 D (11.5-15.4) g/dL Hct 43.1 (35.3-44.9) % Plt Count 258 (140-400) K/mcL Neutrophils # 3.2 (1.6-8.9) K/mcL BMP 06/02/18 09:17 Sodium 138 Potassium 3.0 L Chloride 107 Carbon Dioxide 17 L BUN 31 H Creatinine 0.89 Glucose 116 H Calcium 8.9 Liver Function 06/02/18 Range/Units 09:17 Total Bilirubin 0.3 (0.3-1.0) mg/dL AST 18 (13-39) Units/L ALT 23 (7-52) Units/L Alkaline Phosphatase 74 (34-104) Units/L Albumin 4.1 (3.5-5.7) g/dL - Time Spent With Patient Total time spent is greater than 50% in coordination of care (as documented) at patient's floor/unit and/or counseling patient: - Attending Attestation I performed a history and physical examination of the patient and discussed his management with the resident. I reviewed the residents note and agree with the documented findings and plan of care.
[2018-06-02 09:55] LABS: Basophils % 0.2 %; Eosinophils # 0.1 K/mcL (0.0-0.6); Eosinophils % 1.3 %; Hematocrit 43.1 % (35.3-44.9); Lymphocytes # 1.4 K/mcL (0.6-4.6); Lymphocytes % 26.4 %; Mean Corpuscular HGB Conc 35.7 g/dL (31.6-35.5); Mean Corpuscular Hemoglobin 29.8 pg (28.0-33.3); Mean Corpuscular Volume 83.5 fL (83.0-100.0); Monocytes # 0.6 K/mcL (0.0-1.3); Monocytes % 11.9 %; Neutrophils # 3.2 K/mcL (1.6-8.9); Platelet Count 258 K/mcL (140-400); Red Blood Count 5.16 M/mcL (3.82-4.97); Red Cell Distribution Width 13.9 % (11.5-14.5); Segmented Neutrophils % 60.2 %
[2018-06-02 10:06] LABS: Alanine Aminotransferase 23 Units/L (7-52); Albumin 4.1 g/dL (3.5-5.7); Albumin/Globulin Ratio 1.5 (1.1-2.2); Alkaline Phosphatase 74 Units/L (34-104); Aspartate Amino Transferase 18 Units/L (13-39); BUN/Creatinine Ratio 35 (6-26); Bilirubin,Total 0.3 mg/dL (0.3-1.0); Blood Urea Nitrogen 31 mg/dL (6-20); Calcium 8.9 mg/dL (8.6-10.3); Carbon Dioxide 17 mEq/L (23-29); Chloride 107 mEq/L (98-107); Globulin 2.8 g/dL (2.4-3.5); Glucose 116 mg/dL (70-105); Magnesium 1.7 mg/dL (1.6-2.6); Osmolality,Calculated 294 (280-300); Phosphorous 3.9 mg/dL (2.7-4.5); Sodium 138 mEq/L (136-145); Total Protein 6.9 g/dL (6.4-8.9); eGFR For Non-African Americans > 60 (> 60)
[2018-06-02] MEDS: Ringers Solution, Lactated 1,000 ML IVC SCH ×2 (10:15→22:32)
[2018-06-02] MEDS: Ondansetron 4 MG/2 ML VIAL IVP PRN ×2 (10:16→19:44)
[2018-06-02] MEDS: *HR* Heparin 5,000 UNIT/ML VIAL SQ SCH ×3 (10:17→21:16)
[2018-06-02] MEDS: Orphenadrine 100 MG TABLET.ER PO SCH ×2 (10:17→20:28)
[2018-06-02] MEDS: Gabapentin 400 MG CAPSULE PO SCH ×4 (10:17→20:31)
[2018-06-02 10:20] LABS: Hemoglobin 15.4 g/dL (11.5-15.4)
[2018-06-02] MEDS ORDERED: Potassium Effervescent 25 MEQ TABLET.EFF PO ONE (12:58)
[2018-06-02 13:27] LABS: Adenovirus F 40/41 PCR Not detected (Not detect); Astrovirus PCR Not detected (Not detect); C.difficile Toxin A/B Gene PCR Not detected (Not detect); Campylobacter by PCR Not detected (Not detect); Cryptosporidium by PCR Not detected (Not detect); Cyclospora cayetanensis PCR Not detected (Not detect); E. coli O157 by PCR Not detected (Not detect); Entamoeba histolytica PCR Not detected (Not detect); Enteroaggregative E.coli(EAEC) Not detected (Not detect); Enteropathogenic E.coli(EPEC) Not detected (Not detect); Enterotoxigenic E.coli (ETEC) Not detected (Not detect); Giardia lamblia PCR Not detected (Not detect); Norovirus GI/GII PCR Not detected (Not detect); Plesiomonas shigelloides PCR Not detected (Not detect); Rotavirus A PCR DETECTED (Not detect); Salmonella PCR Not detected (Not detect); Sapovirus PCR Not detected (Not detect); Shig/EnteroinvasiveE coli EIEC Not detected (Not detect); Shigalike tox-prod E coli STEC Not detected (Not detect); Vibrio PCR Not detected (Not detect); Vibrio cholerae PCR Not detected (Not detect); Yersinia enterocolitica PCR Not detected (Not detect)
[2018-06-02] MEDS: Metoclopramide 10 MG/2 ML VIAL IVP SCH ×2 (16:43→23:18)
[2018-06-03] MEDS: *HR* Heparin 5,000 UNIT/ML VIAL SQ SCH ×3 (05:36→20:17)
[2018-06-03] MEDS: Metoclopramide 10 MG/2 ML VIAL IVP SCH (05:38)
[2018-06-03] MEDS: Orphenadrine 100 MG TABLET.ER PO SCH ×2 (07:57→20:16)
[2018-06-03] MEDS: Acetaminophen 325 MG TABLET PO PRN ×2 (07:57→14:09)
[2018-06-03] MEDS: Gabapentin 400 MG CAPSULE PO SCH ×4 (07:57→20:16)
[2018-06-03] MEDS: *HR* Promethazine 25 MG/ML VIAL IVP PRN ×3 (07:58→21:43)
--- NOTE | 2018-06-03 07:59 | Internal Med Progress Note ---
Hospitalist Progress Note - Encounter Date of Encounter: 06/03/18 Time of Encounter: 11:30 - Subjective Interval History: awake, alert. fatigued. continued diarrhea, non bloody, watery. no abd pain, mild nausea intermittently but no emesis. tolerating clears without issue. no fevers or chills updated to + rotavirus - Exam Vitals: Temp Pulse Resp BP Pulse Ox 98.2 F 80 16 116/69 95 06/03/18 02:41 06/03/18 02:41 06/03/18 02:41 06/03/18 02:41 06/03/18 02:41 Exam: General: awake, alert, appears stated age HEENT: pupils equal, round, moist mucus membranes, no scleral icterus Cardiovascular:regular rate and rhythm, normal S1 & S2 Lungs:Normal breath sounds, no wheezes, or crackles. Normal respiratory effort Abdomen:Soft, non-tender, non-distended, no rigidity, + bowel sounds Neurological: AAOx3 Skin:Normal color, no rash, no jaundice - Assessment and Plan (1) Hypokalemia Current Visit: Yes Status: Acute (2) NAA (acute kidney injury) Current Visit: Yes Status: Acute (3) Gastroenteritis Current Visit: Yes Status: Acute (4) Anxiety and depression Current Visit: Yes Status: Chronic DVT Prophylaxis: sub q heparin - Summary of Assessment and Plan Summary of Assessment and Plan: Gastroenteritis Stool + Rotavirus, otherwise negative -IVFs, prn anti emetics -clear liquid diet -stop prn imodium ordered on admission Hypokalemia from GI losses -IV repletion now -check repeat K+ and a Mag level this afternoon for further repletion Anxiety/Depression -cont home seroquel, elavil, flexaril, gabapentin, ambien and norflex -monitor for oversedation as her home meds are a polypharmacy concern- thus far none appreciated ANA, pre renal etiology, resolved -IVFs and cont to monitor vte ppx sqh - Time Spent with Patient Total time spent is greater than 50% in coordination of care (as documented) at patient's floor/unit and/or counseling patient: less than 15 minutes Plan of Care Discussed with: patient Internal Medicine: Result - Labs CBC & Chem 7: 06/03/18 09:07 06/03/18 09:07 Labs: Short CBC 06/02/18 Range/Units 09:17 WBC 5.3 (4.3-11.1) K/mcL Hgb 15.4 D (11.5-15.4) g/dL Hct 43.1 (35.3-44.9) % Plt Count 258 (140-400) K/mcL Neutrophils # 3.2 (1.6-8.9) K/mcL BMP 06/02/18 09:17 Sodium 138 Potassium 3.0 L Chloride 107 Carbon Dioxide 17 L BUN 31 H Creatinine 0.89 Glucose 116 H Calcium 8.9 Liver Function 06/02/18 Range/Units 09:17 Total Bilirubin 0.3 (0.3-1.0) mg/dL AST 18 (13-39) Units/L ALT 23 (7-52) Units/L Alkaline Phosphatase 74 (34-104) Units/L Albumin 4.1 (3.5-5.7) g/dL Consult Discharge Plan - Plan Referrals: January Marsh [Primary Care Provider] -
[2018-06-03] MEDS: Mag Hydrox/Al Hydrox/Simeth 30 ML UDC PO PRN ×2 (08:07→14:09)
[2018-06-03 09:36] LABS: Basophils % 0.6 %; Eosinophils # 0.1 K/mcL (0.0-0.6); Eosinophils % 2.7 %; Hematocrit 40.9 % (35.3-44.9); Hemoglobin 14.5 g/dL (11.5-15.4); Immature Granulocytes % 0.2 % (0-4); Lymphocytes # 1.8 K/mcL (0.6-4.6); Lymphocytes % 34.6 %; Mean Corpuscular HGB Conc 35.5 g/dL (31.6-35.5); Mean Corpuscular Hemoglobin 29.4 pg (28.0-33.3); Mean Corpuscular Volume 82.8 fL (83.0-100.0); Mean Platelet Volume 10.2 fL (9.4-12.4); Monocytes # 0.5 K/mcL (0.0-1.3); Neutrophils # 2.8 K/mcL (1.6-8.9); Platelet Count 247 K/mcL (140-400); Red Blood Count 4.94 M/mcL (3.82-4.97); Red Cell Distribution Width 13.9 % (11.5-14.5); Segmented Neutrophils % 52.9 %
[2018-06-03 09:47] LABS: BUN/Creatinine Ratio 24 (6-26); Blood Urea Nitrogen 17 mg/dL (6-20); Calcium 8.8 mg/dL (8.6-10.3); Carbon Dioxide 23 mEq/L (23-29); Chloride 108 mEq/L (98-107); Glucose 128 mg/dL (70-105); Osmolality,Calculated 291 (280-300); Potassium 3.1 mEq/L (3.5-5.1); Sodium 139 mEq/L (136-145); eGFR For Non-African Americans > 60 (> 60)
[2018-06-03] MEDS ORDERED: *HR* OxyCODONE/APAP 5/325 TABLET PO ONE (10:34)
[2018-06-03] MEDS: Ondansetron 4 MG/2 ML VIAL IVP PRN ×2 (10:51→18:53)
[2018-06-03] MEDS: Ringers Solution, Lactated 1,000 ML IVC SCH (10:51)
[2018-06-03] MEDS ORDERED: *HR* HYDROcodone/Acet 5/325 mg TABLET PO ONE (23:36)
[2018-06-04] MEDS: *HR* Heparin 5,000 UNIT/ML VIAL SQ SCH ×3 (05:11→22:26)
[2018-06-04] MEDS: Ringers Solution, Lactated 1,000 ML IVC SCH ×2 (05:13→20:00)
[2018-06-04] MEDS: *HR* HYDROcodone/Acet 5/325 mg TABLET PO PRN ×3 (06:22→22:26)
[2018-06-04] MEDS: Orphenadrine 100 MG TABLET.ER PO SCH ×2 (08:42→22:26)
[2018-06-04] MEDS: *HR* Promethazine 25 MG/ML VIAL IVP PRN (08:42)
[2018-06-04] MEDS: Gabapentin 400 MG CAPSULE PO SCH ×4 (08:42→22:25)
[2018-06-04] MEDS: Mag Hydrox/Al Hydrox/Simeth 30 ML UDC PO PRN (08:44)
[2018-06-04] MEDS: Acetaminophen 325 MG TABLET PO PRN (08:44)
[2018-06-04 09:18] LABS: BUN/Creatinine Ratio 14 (6-26); Blood Urea Nitrogen 9 mg/dL (6-20); Calcium 8.7 mg/dL (8.6-10.3); Carbon Dioxide 23 mEq/L (23-29); Chloride 107 mEq/L (98-107); Glucose 98 mg/dL (70-105); Magnesium 1.7 mg/dL (1.6-2.6); Osmolality,Calculated 291 (280-300); Potassium 3.4 mEq/L (3.5-5.1); Sodium 141 mEq/L (136-145); eGFR For Non-African Americans > 60 (> 60)
[2018-06-04] MEDS: Ondansetron 4 MG/2 ML VIAL IVP PRN (12:17)
--- NOTE | 2018-06-04 14:06 | Internal Med Progress Note ---
Hospitalist Progress Note - Encounter Date of Encounter: 06/04/18 Time of Encounter: 08:40 - Subjective Interval History: awake, nausea present, no emesis. tolerated breakfast without emesis. cramping abd pain after eating and has had 4 loose bms since that time. she will record bms today to assess severity of diarrhea. no fevers or chills - Exam Vitals: Temp Pulse Resp BP Pulse Ox 98.2 F 67 14 117/78 95 06/04/18 11:00 06/04/18 11:00 06/04/18 11:00 06/04/18 11:00 06/04/18 11:00 Exam: General: awake, alert, appears stated age Cardiovascular:regular rate and rhythm, normal S1 & S2 Lungs:Normal breath sounds, no wheezes, or crackles. Normal respiratory effort on room air Abdomen:Soft, non-tender, non-distended, no rigidity, + bowel sounds Neurological: AAOx3 Skin:Normal color, no rash, no jaundice - Assessment and Plan (1) Hypokalemia Current Visit: Yes Status: Acute (2) ANA (acute kidney injury) Current Visit: Yes Status: Acute (3) Gastroenteritis Current Visit: Yes Status: Acute (4) Anxiety and depression Current Visit: Yes Status: Chronic DVT Prophylaxis: sub q heparin - Summary of Assessment and Plan Summary of Assessment and Plan: Gastroenteritis Stool + Rotavirus, otherwise negative -IVFs, prn anti emetics -ADAT -monitor stool output Hypokalemia from GI losses -PO repletion -IV Mag -cont to monitor Anxiety/Depression -cont home seroquel, elavil, flexaril, gabapentin, ambien and norflex -monitor for oversedation as her home meds are a polypharmacy concern- thus far none appreciated ANA, pre renal etiology, resolved -IVFs and cont to monitor vte ppx sqh - Time Spent with Patient Total time spent is greater than 50% in coordination of care (as documented) at patient's floor/unit and/or counseling patient: less than 15 minutes Plan of Care Discussed with: patient Internal Medicine: Result - Labs CBC & Chem 7: 06/03/18 09:07 06/04/18 08:21 Labs: BMP 06/03/18 06/04/18 20:49 08:21 Sodium 141 Potassium 3.3 L 3.4 L Chloride 107 Carbon Dioxide 23 BUN 9 Creatinine 0.64 Glucose 98 Calcium 8.7 Consult Discharge Plan - Plan Referrals: January Marsh [Primary Care Provider] -
[2018-06-04] MEDS: Ibuprofen 400 MG TABLET PO PRN (17:37)
[2018-06-05 04:42] VITALS: BP 120/75
[2018-06-05] MEDS: *HR* Heparin 5,000 UNIT/ML VIAL SQ SCH (04:42)
[2018-06-05 06:11] LABS: BUN/Creatinine Ratio 19 (6-26); Blood Urea Nitrogen 11 mg/dL (6-20); Calcium 8.4 mg/dL (8.6-10.3); Carbon Dioxide 27 mEq/L (23-29); Chloride 108 mEq/L (98-107); Glucose 109 mg/dL (70-105); Magnesium 1.8 mg/dL (1.6-2.6); Osmolality,Calculated 298 (280-300); Potassium 3.5 mEq/L (3.5-5.1); Sodium 144 mEq/L (136-145); eGFR For Non-African Americans > 60 (> 60)
[2018-06-05] MEDS: *HR* HYDROcodone/Acet 5/325 mg TABLET PO PRN (06:22)
[2018-06-05] MEDS: Gabapentin 400 MG CAPSULE PO SCH (09:03)
[2018-06-05] MEDS: Orphenadrine 100 MG TABLET.ER PO SCH (09:03)
[2018-06-05] MEDS: Ibuprofen 400 MG TABLET PO PRN (09:04)
--- NOTE | 2018-06-05 10:56 | Discharge Summary ---
- NOTES TO OUTPATIENT PROVIDER Notes to Outpatient Provider: Follow up required in next week for gastroenteritis. Pt also found to have SVT (left cephalic vein) this admission from IV catheter. Date of Encounter: 06/05/18 Time of Encounter: 08:40 - Discharge Diagnosis (1) Hypokalemia Priority: Secondary Status: Resolved Assessment and Plan: Hypokalemia from GI losses resolved with repletion (2) ANA (acute kidney injury) Priority: Secondary Status: Resolved Assessment and Plan: ANA, pre renal etiology, resolved with IVFs (3) Gastroenteritis Priority: Primary Status: Resolved Assessment and Plan: Gastroenteritis Stool + Rotavirus, otherwise negative -IVFs, prn anti emetics while inpatient -ADAT and tolerating regular diet -monitored stool output and decreased with resolution of diarrhea on day of dc (4) Anxiety and depression Priority: Secondary Status: Chronic Hospital course: Ms. Solis is a 48 year old female who presented with intractable nausea, vomiting and diarrhea. She was diagnosed with gastroenteritis 2/2 Rotavirus. She was treated conservatively with prn medications and IVFs. She was found to have cephalic left vein SVT on ultrasound 2/ IV there. She was treated conservatively for this as well. Full details of her course can be found under a/p section of this document. Discharge discussed with: patient - Time Spent with Patient Total time spent providing and/or coordinating discharge services: Time spent: Less than 30 minutes (25 min) - Discharge Medications Prescriptions: New Ondansetron ODT [Zofran ODT] 4 mg SL Q8HR PRN #15 tab.rapdis PRN Reason: Nausea And Vomiting Continue Gabapentin [Neurontin] 800 mg PO QID Zolpidem [Ambien] 10 mg PO HS Quetiapine Fumarate [Seroquel] 50 mg PO HS Amitriptyline [Elavil] 10 mg PO HS Atorvastatin Calcium [Lipitor] 20 mg PO DAILY cloNIDine HCl [CloNIDine HCl] 0.1 mg PO HS hydrOXYzine HCl [Hydroxyzine HCl] 50 - 100 mg PO Q8H PRN PRN Reason: Anxiety Home Medications: Gabapentin [Neurontin] 800 mg PO QID 05/11/15 [History] Amitriptyline [Elavil] 10 mg PO HS 06/02/18 [History] Quetiapine Fumarate [Seroquel] 50 mg PO HS 06/02/18 [History] Zolpidem [Ambien] 10 mg PO HS 06/02/18 [History] Atorvastatin Calcium [Lipitor] 20 mg PO DAILY 06/03/18 [History] cloNIDine HCl [CloNIDine HCl] 0.1 mg PO HS 06/03/18 [History] hydrOXYzine HCl [Hydroxyzine HCl] 50 - 100 mg PO Q8H PRN 06/03/18 [History] Ondansetron ODT [Zofran ODT] 4 mg SL Q8HR PRN #15 tab.rapdis 06/05/18 [Rx] Allergies/Adverse Reactions: Allergy/AdvReac Type Severity Reaction Status Date / Time Iodinated Contrast- Oral and Allergy Hives Verified 06/01/18 19:59 IV Dye Date of admission: 06/02/18 02:09 Primary care physician: January Marsh Discharging clinician: Shellie Chavarria (\\) - Constitutional Vitals: Temp Pulse Resp BP Pulse Ox 98.5 F 71 16 120/75 97 06/05/18 04:35 06/05/18 04:35 06/05/18 04:35 06/05/18 04:35 06/05/18 04:35 Exam: awake, pleasant, felling "so much better". Tolerating regular diet without pain, nausea or emesis. Last diarrhea episode 9pm last night. Feeling great and eager for dc to home. Pain and redness in left arm improved. General: awake, alert, appears stated age Cardiovascular:regular rate and rhythm, normal S1 & S2, no le edema Lungs:Normal breath sounds Normal respiratory effort on room air Abdomen:Soft, non-tender, non-distended, no rigidity, + bowel sounds Neurological: AAOx3 Skin:Normal color, no rash, no jaundice - Patient Status Disposition: Home, Self-Care Condition: Good Overall status at discharge: patient is back to baseline - Discharge Instructions Follow Up With: January Marsh [Primary Care Provider] - Additional Instructions: You have been provided a prescription for Zofran ODT for nausea. You were diagnosed with a left arm superficial vein thrombosis (at the site of prior IV). Treatment includes conservative measures such as hot compresses and/or ice, elevation of arm and over the counter ibuprofen (only in recommended daily doses). You may follow up with your primary care provider. It is highly unlikely that superficial clot result in clot travelling to lung. Some people have continued pain and redness with conservative treatment. Follow up with your Primary Care Physician to evaluate for improvement - Diet and Activity Activity: increase activity as tolerated Diet: advance to your usual diet
== END 2018-06-05 12:05 | disposition home or self-care (01) ==
LOC: EMEROOARM 19:45 → 2SOUTHHOLD 19:45 → SUATTDRO 06-02 02:09 → 2SOUTHHOLD 06-02 02:57 → 3ANU 06-02 20:14
PROVIDERS: ADMIT Pediatrics; ATTEND Internal Medicine